=== PATIENT | male | born 1970 | race Caucasian/White ===

== ENCOUNTER 2016-11-03 18:20 | Emergency (ER) | payer BC ==
--- NOTE | 2016-11-03 18:27 | US ---
EXAMINATION TYPE: US VENOUS DOPPLER DUPLEX LE RT DATE OF EXAM: 11/03/2016 6:03 PM COMPARISON: NONE CLINICAL HISTORY: R22.41 Localized swelling/mass/lump R lower limb, patient had cast on right ankle f or 1 month, swelling began after removal of cast SIDE PERFORMED: Right VESSELS IMAGED: External Iliac Vein (EIV) Common Femoral Vein Deep Femoral Vein Greater Saphenous Vein * Femoral Vein Popliteal Vein Small Saphenous Vein * Proximal Calf Veins (* superficial vessels) IMPRESSION: ABNORMAL STUDY, WITH OCCLUSIVE THROMBUS SEEN WITHIN RIGHT POPITEAL VEIN AND PROXIMAL CALF VEIN, NON C OMPRESSIBLE VEIN WITH INTERNAL ECHOES AND NO FLOW DETECTED.
[2016-11-03 18:51] VITALS: RESP 16
[2016-11-03] MEDS ORDERED: APIXABAN 5 MG TAB PO STA (19:10)
--- NOTE | 2016-11-03 19:14 | ED ---
Extremity Problem HPI - General Chief complaint: Extremity Problem,Nontraumatic Time Seen by Provider: 11/03/16 18:58 Source: patient, RN notes reviewed Mode of arrival: wheelchair Limitations: no limitations - History of Present Illness Initial comments: 45-year-old male presents emergency Department with chief complaint of right leg pain. Patient recently had his cast taken off for right leg fracture and was seen Dr. Olivas. Patient states ever since he's had increased pain, swelling. Patient denies any chest pain or shortness of breath. He has no history DVT. Ultrasound did show DVT. - Related Data Previous Rx's Medication Instructions Recorded Apixaban [Eliquis] 0 mg PO DIRECTED #68 tab 11/03/16 Allergies Allergy/AdvReac Type Severity Reaction Status Date / Time No Known Allergies Allergy Verified 11/03/16 19:02 Review of Systems ROS Statement: Those systems with pertinent positive or pertinent negative responses have been documented in the HPI. ROS Other: All systems not noted in ROS Statement are negative. Past Medical History Past Medical History: Renal Disease Additional Past Medical History / Comment(s): BACK PAIN History of Any Multi-Drug Resistant Organisms: None Reported Past Surgical History: Cholecystectomy, Hernia Repair Additional Past Surgical History / Comment(s): KIDNEY SURGERY, 3 fatty tumors removed Past Psychological History: No Psychological Hx Reported Smoking Status: Current every day smoker Past Alcohol Use History: Rare Past Drug Use History: None Reported General Exam Limitations: no limitations General appearance: alert, in no apparent distress Head exam: Present: atraumatic, normocephalic, normal inspection Respiratory exam: Present: normal lung sounds bilaterally. Absent: respiratory distress, wheezes, rales, rhonchi, stridor Cardiovascular Exam: Present: regular rate, normal rhythm, normal heart sounds. Absent: systolic murmur, diastolic murmur, rubs, gallop, clicks Extremities exam: Present: other (Right leg lower aspect there is mild Tenderness pedal pulses equal bilaterally 2+, mild swelling minimal erythema) Neurological exam: Present: alert, oriented X3, CN II-XII intact Course Vital Signs 11/03/16 18:44 Temperature 97.2 F L Pulse Rate 69 Respiratory 16 Rate Blood Pressure 156/96 O2 Sat by Pulse 98 Oximetry Medical Decision Making - Medical Decision Making 45-year-old male presents emergency department for right leg DVT. Patient has had a And Has Been Immobilized for One Month. Patient Was Started on L [facility] and Follow-Up with Primary Care Physician for Continuation Medication and Recheck. Return Parameters Were Discussed. Disposition Clinical Impression: Right leg DVT Disposition: HOME SELF-CARE Condition: Stable Instructions: Deep Venous Thrombosis (ED) Additional Instructions: Please return to the Emergency Department if symptoms worsen or any other concerns. Prescriptions: Apixaban [Eliquis] 0 mg PO DIRECTED #68 tab Time of Disposition: 19:14
[2016-11-03 19:34] VITALS: BP 144/94; PULSE 80; TEMP 97.5
== END 2016-11-03 19:34 | disposition home or self-care (01) ==
LOC: EC 18:20
DX: I82.431 Acute embolism and thrombosis of right popliteal vein (principal); I82.4Y1 Acute embolism and thrombosis of unspecified deep veins of right proximal lower extremity; Z87.81 Personal history of (healed) traumatic fracture
CPT/HCPCS: 99283

== ENCOUNTER 2016-11-22 14:01 | Emergency (ER) | payer BC ==
[2016-11-22 16:07] LABS: Basophils % (A) 1 %; CH 30.7; CHCM 33.6; Eosinophils # (A) 0.3 k/uL (0-0.7); Eosinophils % (A) 4 %; HCT 50.2 % (39.0-53.0); HDW 2.69; HGB 16.3 gm/dL (13.0-17.5); Luc # (Auto) 0.07; Luc % (Auto) 1; Lymphocytes # (A) 2.4 k/uL (1.0-4.8); Lymphocytes % (A) 35 %; MCH 29.9 pg (25.0-35.0); MCHC 32.5 g/dL (31.0-37.0); MCV 92.1 fL (80.0-100.0); Mean Platelet Volume 7.2; Monocytes # (A) 0.4 k/uL (0-1.0); Monocytes % (A) 5 %; Neutrophils # (A) 3.8 k/uL (1.3-7.7); Neutrophils % (A) 54 %; RBC 5.46 m/uL (4.30-5.90); RDW 14.1 % (11.5-15.5); WBC (Perox) 6.87
[2016-11-22 16:17] LABS: ALT 45 U/L (21-72); AST 32 U/L (17-59); Alkaline Phosphatase 71 U/L (38-126); Anion Gap 9 mmol/L; Blood Urea Nitrogen 13 mg/dL (9-20); Calcium 9.3 mg/dL (8.4-10.2); Carbon Dioxide 28 mmol/L (22-30); Chloride 106 mmol/L (98-107); Glucose 94 mg/dL (74-99); Magnesium 2.1 mg/dL (1.6-2.3); Non-African American GFR(MDRD) >60 (>60 ml/min/1.73 sqM); Potassium 3.8 mmol/L (3.5-5.1); Sodium 143 mmol/L (137-145); Total Bilirubin 0.5 mg/dL (0.2-1.3); Total Protein 6.8 g/dL (6.3-8.2)
[2016-11-22 16:19] LABS: INR 1.1 (<1.1); Prothrombin Time 10.9 sec (9.0-12.0)
[2016-11-22 16:54] VITALS: BP 134/86; PULSE 60; RESP 16; TEMP 97.8
--- NOTE | 2016-11-22 17:00 | ED ---
General Adult HPI - General Chief complaint: Weakness Stated complaint: General Weakness/ History of Blood clots Time Seen by Provider: 11/22/16 14:15 Source: patient, RN notes reviewed Mode of arrival: wheelchair Limitations: no limitations - History of Present Illness Initial comments: This is a 45-year-old male presents to the emergency complaining of fatigue. Patient states his been ongoing for a couple of weeks. Patient states she's not weak any localized area he just feels tired all the time. Patient denies any fever chills or cough. Patient denies any chest pain palpitations difficulty breathing or shortness of breath. Patient denies any abdominal pain patient denies nausea vomiting or diarrhea. Patient denies headache patient denies any numbness or focal weakness. Patient denies any lightheadedness dizziness or near syncopal episode. Patient denies any recent injury or trauma. Patient states he does work a lot and has continued to work even though he was recently diagnosed with DVTs on eliquis for that. Patient wondered if Alquist could make him feel fatigued. Patient denies any other symptoms except for this fatigue. - Related Data Home Medications Medication Instructions Recorded Confirmed Apixaban [Eliquis] 5 mg PO BID 11/22/16 11/22/16 Benzonatate [Tessalon Perles] 100 mg PO TID PRN 11/22/16 11/22/16 Cephalexin [Keflex] 500 mg PO TID 11/22/16 11/22/16 Allergies Allergy/AdvReac Type Severity Reaction Status Date / Time No Known Allergies Allergy Verified 11/22/16 15:01 Review of Systems ROS Statement: Those systems with pertinent positive or pertinent negative responses have been documented in the HPI. ROS Other: All systems not noted in ROS Statement are negative. Past Medical History Past Medical History: Renal Disease Additional Past Medical History / Comment(s): BACK PAIN History of Any Multi-Drug Resistant Organisms: None Reported Past Surgical History: Cholecystectomy, Hernia Repair Additional Past Surgical History / Comment(s): KIDNEY SURGERY, 3 fatty tumors removed Past Psychological History: No Psychological Hx Reported Smoking Status: Current every day smoker Past Alcohol Use History: Rare Past Drug Use History: None Reported General Exam - General Exam Comments Initial Comments: GENERAL: Patient is well-developed and well-nourished. Patient is nontoxic and well- hydrated and is in no acute distress. ENT: Neck is soft and supple. No significant lymphadenopathy is noted. Oropharynx is clear. Moist mucous membranes. Neck has full range of motion without eliciting any pain. EYES: The sclera were anicteric and conjunctiva were pink and moist. Extraocular movements were intact and pupils were equal round and reactive to light. Eyelids were unremarkable. PULMONARY: Unlabored respirations. Good breath sounds bilaterally. No audible rales rhonchi or wheezing was noted. CARDIOVASCULAR: There is a regular rate and rhythm without any murmurs gallops or rubs. ABDOMEN: Soft and nontender with normal bowel sounds. No palpable organomegaly was noted. There is no palpable pulsatile mass. SKIN: Skin is clear with no lesions or rashes and otherwise unremarkable. NEUROLOGIC: Patient is alert and oriented x3. Cranial nerves II through XII are grossly intact. Motor and sensory are also intact. Normal speech, volume and content. Symmetrical smile. MUSCULOSKELETAL: Normal extremities with adequate strength and full range of motion. No lower extremity swelling or edema. No calf tenderness. LYMPHATICS: No significant lymphadenopathy is noted PSYCHIATRIC: Normal psychiatric evaluation. Normal interpersonal interactions appears functionally intact in deals appropriately with others. No signs of depression. No signs of anxiety. Limitations: no limitations Course Vital Signs 11/22/16 11/22/16 14:09 16:53 Temperature 98.0 F 97.8 F Pulse Rate 96 60 Respiratory 17 16 Rate Blood Pressure 157/91 134/86 O2 Sat by Pulse 95 96 Oximetry Medical Decision Making - Medical Decision Making EKG shows a normal sinus rhythm at 80 bpm IN interval 164 QRS is 90 QT interval 364 QTC is 440. Patient's EKG shows no ST segment elevation or depression. - Lab Data Result diagrams: 11/22/16 15:45 11/22/16 15:45 Lab Results 11/22/16 11/22/16 11/22/16 Range/Units 15:45 15:45 15:45 WBC 7.0 (3.8-10.6) k/uL RBC 5.46 (4.30-5.90) m/uL Hgb 16.3 (13.0-17.5) gm/dL Hct 50.2 (39.0-53.0) % MCV 92.1 (80.0-100.0) fL MCH 29.9 (25.0-35.0) pg MCHC 32.5 (31.0-37.0) g/dL RDW 14.1 (11.5-15.5) % Plt Count 201 (150-450) k/uL Neutrophils % 54 % Lymphocytes % 35 % Monocytes % 5 % Eosinophils % 4 % Basophils % 1 % Neutrophils # 3.8 (1.3-7.7) k/uL Lymphocytes # 2.4 (1.0-4.8) k/uL Monocytes # 0.4 (0-1.0) k/uL Eosinophils # 0.3 (0-0.7) k/uL Basophils # 0.0 (0-0.2) k/uL PT 10.9 (9.0-12.0) sec INR 1.1 (<1.1) Sodium 143 (137-145) mmol/L Potassium 3.8 (3.5-5.1) mmol/L Chloride 106 (98-107) mmol/L Carbon Dioxide 28 (22-30) mmol/L Anion Gap 9 mmol/L BUN 13 (9-20) mg/dL Creatinine 0.89 (0.66-1.25) mg/dL Est GFR (MDRD) Af Amer >60 (>60 ml/min/1.73 sqM) Est GFR (MDRD) Non-Af >60 (>60 ml/min/1.73 sqM) Glucose 94 (74-99) mg/dL Calcium 9.3 (8.4-10.2) mg/dL Magnesium 2.1 (1.6-2.3) mg/dL Total Bilirubin 0.5 (0.2-1.3) mg/dL AST 32 (17-59) U/L ALT 45 (21-72) U/L Alkaline Phosphatase 71 (38-126) U/L Total Protein 6.8 (6.3-8.2) g/dL Albumin 4.1 (3.5-5.0) g/dL TSH 0.962 (0.465-4.680) mIU/L Free T4 1.03 (0.78-2.19) ng/dL Disposition Clinical Impression: Fatigue Disposition: HOME SELF-CARE Condition: Good Instructions: Fatigue (ED) Referrals: Ck Patel MD [Primary Care Provider] - 1-2 days Time of Disposition: 17:00
== END 2016-11-22 17:15 | disposition home or self-care (01) ==
LOC: EC 14:01
DX: R53.83 Other fatigue (principal); F17.200 Nicotine dependence, unspecified, uncomplicated; Z79.01 Long term (current) use of anticoagulants
CPT/HCPCS: 36415; 80053; 83735; 84439; 84443; 85025; 85610; 93005; 99284

== ENCOUNTER → 2017-02-07 | Outpatient (CLI) | payer BC ==
--- NOTE | 2017-02-07 17:23 | US ---
EXAMINATION TYPE: US venous doppler duplex LE RT DATE OF EXAM: 02/07/2017 2:30 PM COMPARISON: US 2017 CLINICAL HISTORY: I82.409 ACUTE EMBOLISM AND THROMBOSIS OF DEEP VEINS LE. Reevaluate DVT. On Eloquis . SIDE PERFORMED: Right TECHNIQUE: The lower extremity deep venous system is examined utilizing real time linear array sonog shabnam with graded compression, doppler sonography and color-flow sonography. VESSELS IMAGED: External Iliac Vein (EIV) Common Femoral Vein Deep Femoral Vein Greater Saphenous Vein * Femoral Vein Popliteal Vein Small Saphenous Vein * Proximal Calf Veins (* superficial vessels) Right Leg: Positive for DVT. Internal echoes seen mid Popliteal vein and Distal Popliteal Vein. Co mpressions deferred. Left Leg: IMPRESSION: No significant interval change in right lower extremity DVT.
== END | disposition home or self-care (01) ==
LOC: RADUSWWP 13:43
PROVIDERS: ATTEND Family Medicine
DX: I82.431 Acute embolism and thrombosis of right popliteal vein (principal)

== ENCOUNTER 2017-04-11 05:30 | Observation (INO) | payer BC ==
[2017-04-11] MEDS ORDERED: NITROGLYCERIN OINT 1 INCH/GM PACKET TOPICAL STA (05:40)
[2017-04-11] MEDS ORDERED: ASPIRIN 81 MG CHEW PO STA (05:40)
--- NOTE | 2017-04-11 05:43 | ED ---
General Adult HPI - General Chief complaint: Chest Pain Stated complaint: Chest Pain Time Seen by Provider: 04/11/17 05:35 Source: patient, RN notes reviewed Mode of arrival: ambulatory Limitations: no limitations - History of Present Illness Initial comments: Patient is a pleasant 46-year-old male presenting to the emergency department complaining of chest discomfort. Onset of symptoms was yesterday at work. Patient has been under some increased stress recently. Symptoms have been waxing and waning. Discomfort is currently mild rated a 2 or so out of 10. Discomfort feels like an ache. Patient at one time did feel somewhat short of breath. No nausea or diaphoresis. Patient did have similar symptoms approximately 10 years ago diagnosed with anxiety. - Related Data Home Medications Medication Instructions Recorded Confirmed Apixaban [Eliquis] 5 mg PO BID 11/22/16 04/11/17 Allergies Allergy/AdvReac Type Severity Reaction Status Date / Time No Known Allergies Allergy Verified 04/11/17 05:38 Review of Systems ROS Statement: Those systems with pertinent positive or pertinent negative responses have been documented in the HPI. ROS Other: All systems not noted in ROS Statement are negative. Constitutional: Denies: fever Eyes: Denies: eye pain ENT: Denies: ear pain Respiratory: Denies: cough Cardiovascular: Reports: chest pain Endocrine: Denies: fatigue Gastrointestinal: Denies: abdominal pain Genitourinary: Denies: dysuria Musculoskeletal: Denies: back pain Skin: Denies: rash Neurological: Denies: weakness Past Medical History Past Medical History: Renal Disease Additional Past Medical History / Comment(s): BACK PAIN. DVT History of Any Multi-Drug Resistant Organisms: None Reported Past Surgical History: Cholecystectomy, Hernia Repair Additional Past Surgical History / Comment(s): KIDNEY SURGERY, 3 fatty tumors removed Past Psychological History: No Psychological Hx Reported Smoking Status: Current every day smoker Past Alcohol Use History: Rare Past Drug Use History: None Reported General Exam Limitations: no limitations General appearance: alert, in no apparent distress Head exam: Present: atraumatic Eye exam: Present: normal appearance, PERRL ENT exam: Present: normal oropharynx Neck exam: Present: normal inspection Respiratory exam: Present: normal lung sounds bilaterally. Absent: chest wall tenderness Cardiovascular Exam: Present: regular rate, normal rhythm Expanded Peripheral pulses: 2+: Radial (R), Radial (L), Posterior Tibialis (R), Posterior Tibialis (L) GI/Abdominal exam: Present: soft. Absent: tenderness Extremities exam: Present: normal inspection. Absent: pedal edema, calf tenderness Neurological exam: Present: alert Psychiatric exam: Present: normal affect, normal mood Skin exam: Present: normal color Course Vital Signs 04/11/17 04/11/17 04/11/17 05:30 05:47 06:20 Temperature 97.4 F L Pulse Rate 73 77 68 Respiratory 18 17 18 Rate Blood Pressure 163/96 163/96 129/88 O2 Sat by Pulse 97 96 96 Oximetry EKG Findings - EKG Comments: EKG Findings:: Normal sinus rhythm 69. Normal intervals. Left axis. Incomplete right bundle-branch block. No acute ST change. Medical Decision Making - Medical Decision Making Patient reexamined and resting comfortably in bed. Patient still with only mild discomfort. Patient updated on results and plan. Case discussed with practitioner Indira, who will admit for Dr. Reza, covering for Dr. mejia, who admits for Dr. Patel. - Lab Data Result diagrams: 04/11/17 05:45 04/11/17 05:45 Lab Results 04/11/17 04/11/17 04/11/17 Range/Units 05:45 05:45 05:45 WBC 7.3 (3.8-10.6) k/uL RBC 5.24 (4.30-5.90) m/uL Hgb 16.6 (13.0-17.5) gm/dL Hct 49.6 (39.0-53.0) % MCV 94.7 (80.0-100.0) fL MCH 31.7 (25.0-35.0) pg MCHC 33.5 (31.0-37.0) g/dL RDW 13.8 (11.5-15.5) % Plt Count 203 (150-450) k/uL Neutrophils % 58 % Lymphocytes % 31 % Monocytes % 5 % Eosinophils % 4 % Basophils % 1 % Neutrophils # 4.2 (1.3-7.7) k/uL Lymphocytes # 2.3 (1.0-4.8) k/uL Monocytes # 0.4 (0-1.0) k/uL Eosinophils # 0.3 (0-0.7) k/uL Basophils # 0.0 (0-0.2) k/uL PT (9.0-12.0) sec INR (<1.1) APTT (22.0-30.0) sec D-Dimer (<0.60) mg/L FEU Sodium 142 (137-145) mmol/L Potassium 4.0 (3.5-5.1) mmol/L Chloride 108 H (98-107) mmol/L Carbon Dioxide 24 (22-30) mmol/L Anion Gap 10 mmol/L BUN 21 H (9-20) mg/dL Creatinine 0.90 (0.66-1.25) mg/dL Est GFR (MDRD) Af Amer >60 (>60 ml/min/1.73 sqM) Est GFR (MDRD) Non-Af >60 (>60 ml/min/1.73 sqM) Glucose 98 (74-99) mg/dL Calcium 9.4 (8.4-10.2) mg/dL Magnesium 2.1 (1.6-2.3) mg/dL Total Bilirubin 0.5 (0.2-1.3) mg/dL AST 27 (17-59) U/L ALT 38 (21-72) U/L Alkaline Phosphatase 82 (38-126) U/L Total Creatine Kinase 105 (55-170) U/L CK-MB (CK-2) 1.1 (0.0-2.4) ng/mL CK-MB (CK-2) Rel Index 1.0 Troponin I <0.012 (0.000-0.034) ng/mL Total Protein 7.0 (6.3-8.2) g/dL Albumin 4.5 (3.5-5.0) g/dL 04/11/17 Range/Units 05:45 WBC (3.8-10.6) k/uL RBC (4.30-5.90) m/uL Hgb (13.0-17.5) gm/dL Hct (39.0-53.0) % MCV (80.0-100.0) fL MCH (25.0-35.0) pg MCHC (31.0-37.0) g/dL RDW (11.5-15.5) % Plt Count (150-450) k/uL Neutrophils % % Lymphocytes % % Monocytes % % Eosinophils % % Basophils % % Neutrophils # (1.3-7.7) k/uL Lymphocytes # (1.0-4.8) k/uL Monocytes # (0-1.0) k/uL Eosinophils # (0-0.7) k/uL Basophils # (0-0.2) k/uL PT 10.5 (9.0-12.0) sec INR 1.0 (<1.1) APTT 27.5 (22.0-30.0) sec D-Dimer 0.28 (<0.60) mg/L FEU Sodium (137-145) mmol/L Potassium (3.5-5.1) mmol/L Chloride (98-107) mmol/L Carbon Dioxide (22-30) mmol/L Anion Gap mmol/L BUN (9-20) mg/dL Creatinine (0.66-1.25) mg/dL Est GFR (MDRD) Af Amer (>60 ml/min/1.73 sqM) Est GFR (MDRD) Non-Af (>60 ml/min/1.73 sqM) Glucose (74-99) mg/dL Calcium (8.4-10.2) mg/dL Magnesium (1.6-2.3) mg/dL Total Bilirubin (0.2-1.3) mg/dL AST (17-59) U/L ALT (21-72) U/L Alkaline Phosphatase (38-126) U/L Total Creatine Kinase (55-170) U/L CK-MB (CK-2) (0.0-2.4) ng/mL CK-MB (CK-2) Rel Index Troponin I (0.000-0.034) ng/mL Total Protein (6.3-8.2) g/dL Albumin (3.5-5.0) g/dL - Radiology Data Interpreted by me: Chest x-ray shows no acute process. Disposition Clinical Impression: Unstable angina pectoris Disposition: ADMITTED IP TO THIS [facility] Referrals: Ck Patel MD [Primary Care Provider] - 1-2 days Decision Time: 06:38
[2017-04-11 05:54] LABS: Basophils % (A) 1 %; CH 31.6; CHCM 33.5; Eosinophils # (A) 0.3 k/uL (0-0.7); Eosinophils % (A) 4 %; HCT 49.6 % (39.0-53.0); HDW 2.59; HGB 16.6 gm/dL (13.0-17.5); Luc % (Auto) 1; Lymphocytes # (A) 2.3 k/uL (1.0-4.8); Lymphocytes % (A) 31 %; MCH 31.7 pg (25.0-35.0); MCHC 33.5 g/dL (31.0-37.0); MCV 94.7 fL (80.0-100.0); Mean Platelet Volume 6.7; Monocytes # (A) 0.4 k/uL (0-1.0); Monocytes % (A) 5 %; Neutrophils # (A) 4.2 k/uL (1.3-7.7); Neutrophils % (A) 58 %; RBC 5.24 m/uL (4.30-5.90); RDW 13.8 % (11.5-15.5); WBC 7.3 k/uL (3.8-10.6); WBC (Perox) 6.67
[2017-04-11 06:06] LABS: ALT 38 U/L (21-72); AST 27 U/L (17-59); Alkaline Phosphatase 82 U/L (38-126); Anion Gap 10 mmol/L; Blood Urea Nitrogen 21 mg/dL (9-20); Calcium 9.4 mg/dL (8.4-10.2); Carbon Dioxide 24 mmol/L (22-30); Chloride 108 mmol/L (98-107); Glucose 98 mg/dL (74-99); Magnesium 2.1 mg/dL (1.6-2.3); Non-African American GFR(MDRD) >60 (>60 ml/min/1.73 sqM); Sodium 142 mmol/L (137-145); Total Bilirubin 0.5 mg/dL (0.2-1.3)
[2017-04-11 06:10] LABS: Partial Thromboplastin Time 27.5 sec (22.0-30.0); Prothrombin Time 10.5 sec (9.0-12.0)
[2017-04-11 06:22] LABS: Creatine Kinase 105 U/L (55-170)
[2017-04-11 06:34] LABS: Creatine Kinase MB 1.1 ng/mL (0.0-2.4); Troponin I <0.012 ng/mL (0.000-0.034)
[2017-04-11] MEDS ORDERED: HEPARIN SODIUM,PORCINE 5,000 UNIT/ML 1 ML VIAL IV ONE (06:38)
[2017-04-11] MEDS ORDERED: HEPARIN SODIUM,PORCINE 5,000 UNIT/ML 1 ML VIAL IV PRN (06:38)
[2017-04-11] MEDS ORDERED: NITROGLYCERIN SL TABS 0.4 MG TAB SUBLINGUAL PRN (06:38)
[2017-04-11] MEDS ORDERED: HEPARIN SODIUM,PORCINE/D5W PMX 25,000 UNIT in DEXTROSE/WATER 1 500ML.BAG IV SCH (06:45)
--- NOTE | 2017-04-11 07:01 | XR ---
EXAM: XR Chest, 2 Views CLINICAL HISTORY: Reason: Chest Pain TECHNIQUE: Frontal and lateral views of the chest. COMPARISON: Chest x-ray 10 26,016. FINDINGS: Lungs: Left basilar airspace disease. Low lung volumes. Pleural space: Unremarkable. No pneumothorax. Heart: Unremarkable. No cardiomegaly. Mediastinum: Unremarkable. Bones/joints: Unremarkable. IMPRESSION: 1. Left basilar airspace disease. 2. Low lung volumes.
--- NOTE | 2017-04-11 10:05 | P.CRDCN ---
History of Present Illness Consult date: 04/11/17 Requesting physician: Lola Reza Consult reason: chest pain Chief complaint: Chest pain History of present illness: This is a 46-year-old gentleman with no prior documented history of hypertension, no diabetes, no hyperlipidemia, no family history of premature coronary artery disease, he does smoke one pack of cigarettes per day and occasionally drinks alcohol. He also has a history of a DVT which was diagnosed in October of this year at which time he was started on Eliquis. Patient had a repeat venous duplex study performed in January which showed no change in the right popliteal DVT. Patient presents to the hospital on this occasion with symptoms of chest discomfort. He states he was at work yesterday when he noticed what he described as an ache in his chest, he states that the symptoms would last a number of seconds and then dissipate. He would get mildly short of breath with this, he denies any nausea or diaphoresis. Patient states that since the initial episode while he was at work he had 3 episodes during the day, multiple episodes through the night, and again at 5 AM similar symptoms. For this reason he came to the emergency room for further evaluation. Patient states he had symptoms somewhat similar to this approximately 10 years ago and was told to have anxiety. He has never had a cardiac workup in the form of stress test in the past. At the time of my examination this morning, he is currently chest pain-free, he states he has not had any pain since the Nitropaste was applied. Blood pressure on arrival 163/90 , heart rate in the 70s, 97% on room air. Blood pressure this morning 154/80 with heart rate in the 70s, 95% on room air. CBC normal. D-dimer negative. Potassium 4.0, BUN 21, creatinine 0.9. Magnesium 2.1, initial troponin 0.012. EKG shows a normal sinus rhythm with no acute changes. Chest x-ray reveals left basilar airspace disease. Past Medical History Past Medical History: Deep Vein Thrombosis (DVT), Pneumonia, Renal Disease Additional Past Medical History / Comment(s): DVT R leg, congenital kidney defect with surgeries History of Any Multi-Drug Resistant Organisms: None Reported Past Surgical History: Cholecystectomy, Hernia Repair Additional Past Surgical History / Comment(s): KIDNEY SURGERY twice for congenital defect, 3 fatty tumors removed from trunk, bilateral inguinal hernia repairs Past Anesthesia/Blood Transfusion Reactions: Motion Sickness Smoking Status: Current every day smoker - Past Family History Father Family Medical History: Congestive Heart Failure (CHF) Additional Family Medical History / Comment(s): Father of CHF at the age of 77yrs. Mother Family Medical History: No Reported History Additional Family Medical History / Comment(s): Pt states mother is healthy. Medications and Allergies Home Medications Medication Instructions Recorded Confirmed Type Apixaban [Eliquis] 5 mg PO BID 11/22/16 04/11/17 History Allergies Allergy/AdvReac Type Severity Reaction Status Date / Time No Known Allergies Allergy Verified 04/11/17 05:38 Physical Exam Vitals: Vital Signs Temp Pulse Pulse Resp BP BP Pulse Ox 04/11/17 07:44 97.6 F 63 16 154/88 95 04/11/17 06:38 98.0 F 70 16 129/88 97 04/11/17 06:20 68 18 129/88 96 04/11/17 05:47 77 17 163/96 96 04/11/17 05:30 97.4 F L 73 18 163/96 97 Intake and Output 04/10/17 04/11/17 04/11/17 22:59 06:59 14:59 Other: Weight 99.79 kg 104.5 kg Patient Weight 04/12/17 06:59 Weight 104.5 kg PHYSICAL EXAMINATION: HEENT: Head is atraumatic, normocephalic. Pupils equal, round. Neck is supple. There is no elevated jugular venous pressure. HEART EXAMINATION: Heart S1, S2 normal. No murmur or gallop heard. CHEST EXAMINATION: Lungs are clear to auscultation and precussion. No chest wall tenderness is noted on palpation or with deep breathing. ABDOMEN: Soft, nontender. Bowel sounds are heard. No organomegaly noted. EXTREMITIES: 2+ peripheral pulses with no evidence of peripheral edema and no calf tenderness noted. NEUROLOGIC patient is awake, alert and oriented -3. . Results 04/11/17 05:45 04/11/17 05:45 Cardiac Enzymes 04/11/17 04/11/17 Range/Units 05:45 05:45 AST 27 (17-59) U/L CK-MB (CK-2) 1.1 (0.0-2.4) ng/mL Troponin I <0.012 (0.000-0.034) ng/mL Coagulation 04/11/17 Range/Units 05:45 PT 10.5 (9.0-12.0) sec APTT 27.5 (22.0-30.0) sec CBC 04/11/17 Range/Units 05:45 WBC 7.3 (3.8-10.6) k/uL RBC 5.24 (4.30-5.90) m/uL Hgb 16.6 (13.0-17.5) gm/dL Hct 49.6 (39.0-53.0) % Plt Count 203 (150-450) k/uL Comprehensive Metabolic Panel 04/11/17 Range/Units 05:45 Sodium 142 (137-145) mmol/L Potassium 4.0 (3.5-5.1) mmol/L Chloride 108 H (98-107) mmol/L Carbon Dioxide 24 (22-30) mmol/L BUN 21 H (9-20) mg/dL Creatinine 0.90 (0.66-1.25) mg/dL Glucose 98 (74-99) mg/dL Calcium 9.4 (8.4-10.2) mg/dL AST 27 (17-59) U/L ALT 38 (21-72) U/L Alkaline Phosphatase 82 (38-126) U/L Total Protein 7.0 (6.3-8.2) g/dL Albumin 4.5 (3.5-5.0) g/dL Current Medications Generic Name Dose Route Start Last Admin Trade Name Freq PRN Reason Stop Dose Admin Aspirin 325 mg 04/12/17 09:00 Aspirin PO DAILY [facility] Heparin Sodium (Porcine) 0 unit 04/11/17 06:38 Heparin IV Q6HR PRN Low PTT Protocol Heparin Sodium/Dextrose 25,000 500 mls @ 20.15 mls/hr 04/11/17 06:45 06:47 unit/ IV Solution IV 10.1 units/kg/hr .Q24H LIZ 20.15 mls/hr Protocol Administration 10.1 UNITS/KG/HR Nitroglycerin 1 inch 04/11/17 12:00 Nitro-Bid Oint TOPICAL Q6HR [facility] Nitroglycerin 0.4 mg 04/11/17 06:38 Nitrostat SUBLINGUAL Q5M PRN Chest Pain Sodium Chloride 10 ml 04/11/17 09:00 Saline Flush IV BID LIZ Intake and Output 04/10/17 04/11/17 04/11/17 22:59 06:59 14:59 Other: Weight 99.79 kg 104.5 kg Patient Weight 04/12/17 06:59 Weight 104.5 kg 04/11/17 05:45 04/11/17 05:45 EKG Interpretations (text) EKG shows normal sinus rhythm with no acute changes. Assessment and Plan Plan: Assessment and plan #1 chest pain, with some atypical features for acute coronary syndrome, although patient had several episodes. Initial troponin negative. EKG shows normal sinus rhythm with no acute changes. #2 right popliteal DVT, diagnosed in October of this year, on Eliquis 5 mg one tablet by mouth twice a day. D-dimer negative this admission. #3 nicotine dependence #4 anxiety Plan We will order an echocardiogram with Doppler study to be performed. Obtained to further troponin values. If the second troponin is negative recommend the patient undergo stress testing to rule out underlying coronary artery disease. Further recommendations to follow. DNP note has been reviewed, I agree with a documented findings and plan of care. Patient was seen and examined.
[2017-04-11 11:12] LABS: Creatine Kinase 92 U/L (55-170)
[2017-04-11 11:24] LABS: Creatine Kinase MB 1.1 ng/mL (0.0-2.4); Troponin I <0.012 ng/mL (0.000-0.034)
[2017-04-11] MEDS ORDERED: RX INFO: IV CONTRAST WAS GIVEN 1 EACH MISC MISCELLANE PRN (12:31)
--- NOTE | 2017-04-11 12:42 | ECHOF ---
Referral Reason:chest pain MEASUREMENTS -------- HEIGHT: 180.3 cm WEIGHT: 104.3 kg BP: IVSd: 1.2 cm (0.6 - 1.1) LVIDd: 4.2 cm (3.9 - 5.3) LVPWd: 1.2 cm (0.6 - 1.1) IVSs: 1.8 cm LVIDs: 2.1 cm LVPWs: 2.0 cm Ao Diam: 4.8 cm (2.0 - 3.7) AV Cusp: 2.9 cm (1.5 - 2.6) LA Diam: 2.9 cm (2.7 - 3.8) MV EXCURSION: 10.412 mm (> 18.000) MV EF SLOPE: 78 mm/s (70 - 150) EPSS: 0.5 cm MV E Newton: 0.83 m/s MV DecT: 253 ms MV A Newton: 0.64 m/s MV E/A Ratio: 1.30 RAP: 5.00 mmHg RVSP: 9.56 mmHg FINDINGS -------- Sinus rhythm. This was a technically good study. There is mild concentric left ventricular hypertrophy. Overall left ventricular systolic function is normal with, an EF between 55 - 60 %. The right ventricle is normal in size and function. The left atrium is normal in size. The right atrium is normal in size. Can't exclude possible Bicuspid Aov. The mitral valve leaflets are mildly thickened. Mild mitral regurgitation is present. Mild tricuspid regurgitation present. The right ventricular systolic pressure, as measured by Doppler, is 9.56mmHg. Pulmonic valve appears structurally normal. The aortic root is moderately dilated. Ascending Aortic Aneurysm measuring 4.8 cm The pericardium is normal. CONCLUSIONS -------- 1. Sinus rhythm. 2. Mild mitral regurgitation is present. 3. Mild tricuspid regurgitation present. 4. The right ventricular systolic pressure, as measured by Doppler, is 9.56mmHg. 5. Pulmonic valve appears structurally normal. 6. The aortic root is moderately dilated. 7. Ascending Aortic Aneurysm measuring 4.8 cm 8. The pericardium is normal. 9. This was a technically good study. 10. There is mild concentric left ventricular hypertrophy. 11. Overall left ventricular systolic function is normal with, an EF between 55 - 60 %. 12. The right ventricle is normal in size and function. 13. The left atrium is normal in size. 14. The right atrium is normal in size. 15. Can't exclude possible Bicuspid Aov. 16. The mitral valve leaflets are mildly thickened. APPLIANCE TECHNICIAN: Carissa Squires RDCS
--- NOTE | 2017-04-11 13:27 | CT ---
EXAMINATION TYPE: CT chest w con DATE OF EXAM: 04/11/2017 COMPARISON: NONE HISTORY: [place], ASSESS DILATED AORTA CT DLP: 479.50 mGycm Automated exposure control for dose reduction was used. CONTRAST: CT scan of the chest is performed with IV Contrast, patient injected with 100 ML mL of Omnipaque 300. FINDINGS: There is some scarring or atelectasis in the right middle lobe. There is also some scarring or atelectasis in the left lower lobe. No parenchymal nodule is seen. There is no significant axillary or hilar adenopathy. There is some shotty adenopathy in the mediasti num. The aortic root is dilated measuring 4.8 cm. Just above the root of the aorta measures 3.4 cm. At the level of the proximal arch, the aorta measures 3 cm. At the level of the proximal descending thoraci c aorta the aorta measures 2.6 cm. The remainder the aorta is normal in caliber. There is no pleural or pericardial fluid. The heart is normal in size. The gallbladder has been removed. Visualized abdominal viscera are unremarkable. No osseous lesion is seen. IMPRESSION: 1. ASCENDING THORACIC AORTIC ANEURYSM. 2. STATUS POST CHOLECYSTECTOMY.
[2017-04-11] MEDS: NITROGLYCERIN OINT 1 INCH/GM PACKET TOPICAL SCH ×2 (13:54→20:01)
[2017-04-11] MEDS ORDERED: ALPRAZolam 0.5 MG TAB PO PRN (16:04)
[2017-04-11] MEDS: NICOTINE 14MG/24HR PATCH TRANSDERM SCH (17:05)
--- NOTE | 2017-04-11 18:08 | P.HPIM ---
History of Present Illness H&P Date: 04/11/17 Chief Complaint: Chest pain 6-year-old gentleman with ongoing tobacco use comes in the hospital with complaints of chest pain midsternal in location that started 24 hours prior to admission. Patient states that his pain is deep stabbing nonradiating no alleviating or exacerbating factors are noted. Patient states that he felt uneasy overnight hence came to the hospital around 5 AM EKG did not reveal ST-T wave changes Patient does not complain of any symptoms at the time of my evaluation Patient underwent echocardiogram which revealed a 4.8 cm aortic aneurysm A CT angiogram also revealed a similar size aortic aneurysm Denies having any previous cardiac history No headaches blurry vision nausea vomiting chest pain diarrhea or abdominal pain urinary urgency or frequency is reported during my evaluation Review of Systems All systems: negative (Noted in HPI) Past Medical History Past Medical History: Deep Vein Thrombosis (DVT), Pneumonia, Renal Disease Additional Past Medical History / Comment(s): DVT R leg, congenital kidney defect with surgeries History of Any Multi-Drug Resistant Organisms: None Reported Past Surgical History: Cholecystectomy, Hernia Repair Additional Past Surgical History / Comment(s): KIDNEY SURGERY twice for congenital defect, 3 fatty tumors removed from trunk, bilateral inguinal hernia repairs Past Anesthesia/Blood Transfusion Reactions: Motion Sickness Smoking Status: Current every day smoker - Past Family History Father Family Medical History: Congestive Heart Failure (CHF) Additional Family Medical History / Comment(s): Father of CHF at the age of 77yrs. Mother Family Medical History: No Reported History Additional Family Medical History / Comment(s): Pt states mother is healthy. Medications and Allergies Home Medications Medication Instructions Recorded Confirmed Type Apixaban [Eliquis] 5 mg PO BID 11/22/16 04/11/17 History Allergies Allergy/AdvReac Type Severity Reaction Status Date / Time No Known Allergies Allergy Verified 04/11/17 05:38 Physical Exam Vitals: Vital Signs Temp Pulse Pulse Resp BP BP Pulse Ox 04/11/17 16:00 16 04/11/17 15:28 97.9 F 63 16 134/84 96 04/11/17 12:00 97.8 F 72 16 152/91 97 04/11/17 07:44 97.6 F 63 16 154/88 95 04/11/17 06:38 98.0 F 70 16 129/88 97 04/11/17 06:20 68 18 129/88 96 04/11/17 05:47 77 17 163/96 96 04/11/17 05:30 97.4 F L 73 18 163/96 97 Intake and Output 04/11/17 04/11/17 04/11/17 06:59 14:59 22:59 Intake Total 240 Balance 240 Intake: Oral 240 Other: Weight 99.79 kg 104.5 kg Patient Weight 04/12/17 06:59 Weight 104.5 kg Physical exam Gen. appearance oriented 3 in no distress Neck is supple no JVD Lungs good air entry clear to auscultation no rhonchi or wheezing Heart S1-S2 heard regular rate and rhythm no murmurs appreciated Abdomen is soft nontender no organomegaly bowel sounds are intact Neurologically cranial nerves II-12 grossly intact no focal motor or sensory deficits noted Skin no abnormalities appreciated Results CBC & Chem 7: 04/11/17 05:45 04/11/17 05:45 Labs: Abnormal Lab Results - Last 24 Hours (Table) 04/11/17 04/11/17 Range/Units 05:45 10:25 APTT 49.5 H (22.0-30.0) sec Chloride 108 H (98-107) mmol/L BUN 21 H (9-20) mg/dL Thrombosis Risk Factor Assmnt - Choose All That Apply Any of the Below Risk Factors Present?: Yes Each Factor Represents 1 point: Age 41-60 years, Obesity (BMI >25) Other Risk Factors: Yes Each Risk Factor Represents 3 Points: History of DVT/PE Other congenital or acquired thrombophilia - If yes, enter type in comment: No Thrombosis Risk Factor Assessment Total Risk Factor Score: 5 Thrombosis Risk Factor Assessment Level: High Risk Assessment and Plan Plan: #1 atypical chest pain rule out ACS #2 ascending aortic aneurysm 4.8 cm #3 hypertension New diagnosis Plan Discussed regarding smoking cessation. Regarding the aortic aneurysm A T is plan for tomorrow to look at the aortic valve rule out bicuspid aortic valve Smoking cessation is highly recommended again is symptom-free at this time We'll need coronary workup as well likely a stress test on outpatient basis
[2017-04-11 19:16] LABS: Creatine Kinase 84 U/L (55-170)
[2017-04-11 19:30] LABS: Creatine Kinase MB 0.8 ng/mL (0.0-2.4); Troponin I <0.012 ng/mL (0.000-0.034)
[2017-04-12] MEDS: NITROGLYCERIN OINT 1 INCH/GM PACKET TOPICAL SCH ×3 (03:37→12:14)
[2017-04-12 06:31] LABS: Mean Platelet Volume 7.2
[2017-04-12 06:46] LABS: Cholesterol 195 mg/dL (<200); HDL Cholesterol 36 mg/dL (40-60); Triglycerides 255 mg/dL (<150)
[2017-04-12] MEDS: NICOTINE 14MG/24HR PATCH TRANSDERM SCH (07:53)
[2017-04-12] MEDS ORDERED: ASPIRIN 325 MG TAB PO SCH (09:00)
[2017-04-12] MEDS ORDERED: IV FLUID CONTINUATION 1,000 ML IV ONE (10:15)
[2017-04-12] MEDS ORDERED: SODIUM CHLORIDE 0.9% 500 ML IV ONE (10:15)
[2017-04-12] MEDS ORDERED: fentaNYL (PF) 50 MCG/ML 2 ML AMP ONE (10:17)
[2017-04-12] MEDS ORDERED: MIDAZOLAM 2 MG/2 ML VIAL ONE (10:17)
[2017-04-12] MEDS: BENZOCAINE SPRAY 100 APPLIC/CAN MUCOUS MEM ONE ×2 (10:33→10:55)
[2017-04-12] MEDS: MIDAZOLAM 2 MG/2 ML VIAL IV ONE ×3 (10:45→11:04)
[2017-04-12] MEDS ORDERED: fentaNYL (PF) 50 MCG/ML 2 ML AMP IV ONE (10:55)
[2017-04-12] MEDS ORDERED: MIDAZOLAM 2 MG/2 ML VIAL IV ONE (10:59)
[2017-04-12] MEDS ORDERED: METOPROLOL SUCCINATE (ER) 50 MG TAB.ER.24H PO SCH (11:15)
[2017-04-12 11:45] VITALS: RESP 18; TEMP 97.6
[2017-04-12 12:23] VITALS: PULSE 75
[2017-04-12 12:24] VITALS: BP 132/95
--- NOTE | 2017-04-12 13:24 | P.CON ---
Consult Note - . Consult date: 04/12/17 Assessment/Plan:: Mr. Welch is a 46-year-old man who presented with chest pain. Chest pain is a central deep chest pain which is nonradiating. Patient EKG did not demonstrate any changes and his troponins were negative. He did have an echocardiogram which demonstrated aortic root aneurysm of 4.8 cm. This was confirmed on CT angiogram. Previous medical history is significant for pneumonia renal insufficiency and deep venous thrombosis patient was born with congenital kidney defect and had several surgeries at a very young age. Other surgical history includes cholecystectomy and herniorrhaphy. Echocardiogram and computed tomography scan are reviewed with a 4.8 cm root aortic aneurysm being noted. There is no significant aortic valvular insufficiency and no evidence of bicuspid aortic valve. Recommendation at this time is for medical management with beta blockade. CAIN inhibitor can be added as needed for hypertensive control. A follow-up computed tomography scan will be obtained in 6 months and the patient will follow up with us in the office at that time.
--- NOTE | 2017-04-12 18:35 | P.DS ---
Providers Date of admission: 04/11/17 06:38 Attending physician: Lola Reza Consults: 04/11/17 06:38 Consult Physician Urgent Consulting Provider: Alex Kirkland Consult Reason/Comments: ua Do you want consulting provider notified?: Yes 04/12/17 12:09 Consult Physician Stat Consulting Provider: Jhon Jimenez Consult Reason/Comments: dilated aorta Do you want consulting provider notified?: Already Contacted Primary care physician: Ck [facility] Course: 6-year-old gentleman with ongoing tobacco use comes in the hospital with complaints of chest pain midsternal in location that started 24 hours prior to admission. Patient states that his pain is deep stabbing nonradiating no alleviating or exacerbating factors are noted. Patient states that he felt uneasy overnight hence came to the hospital around 5 AM EKG did not reveal ST-T wave changes Patient does not complain of any symptoms at the time of my evaluation Patient underwent echocardiogram which revealed a 4.8 cm aortic aneurysm A CT angiogram also revealed a similar size aortic aneurysm Denies having any previous cardiac history No headaches blurry vision nausea vomiting chest pain diarrhea or abdominal pain urinary urgency or frequency is reported during my evaluation 04/04/2017 Denies having any new complaints No headaches nausea vomiting chest pain difficulty breathing abdominal pain is reported Physical exam Gen. appearance oriented 3 in no distress Neck is supple no JVD Lungs good air entry clear to auscultation no rhonchi or wheezing Heart S1-S2 heard regular rate and rhythm no murmurs appreciated Abdomen is soft nontender no organomegaly bowel sounds are intact Neurologically cranial nerves II-12 grossly intact no focal motor or sensory deficits noted Skin no abnormalities appreciated Assessment and Plan Plan: #1 atypical chest pain rule out ACS #2 aortic root dilatation 4.8 cm #3 hypertension New diagnosis Underwent a BLAKE does not show bicuspid aortic valve and 4.8 cm Is to follow-up with Dr. Adrian in 6 months Patient was started on metoprolol thereafter losartan been initiated on outpatient basis blood pressure control was discussed with the patient Plan - Discharge Summary New Discharge Prescriptions: New Metoprolol Succinate (ER) [Toprol XL] 50 mg PO DAILY #30 tab Continue Apixaban [Eliquis] 5 mg PO BID Discharge Medication List Apixaban [Eliquis] 5 mg PO BID 11/22/16 [History] Metoprolol Succinate (ER) [Toprol XL] 50 mg PO DAILY #30 tab 04/12/17 [Rx] Follow up Appointment(s)/Referral(s): Ck Patel MD [Primary Care Provider] - 1-2 days Gilbert Pruett MD [STAFF PHYSICIAN] - 1 Week Patient Instructions/Handouts: How to Stop Smoking (DC), How to Stop Smoking ( GEN) Activity/Diet/Wound Care/Special Instructions: CT in 6 months and follow up with Dr. Adrian Discharge Disposition: HOME SELF-CARE
--- NOTE | 2017-04-14 20:21 | ECHOT ---
PREOPERATIVE DIAGNOSIS: Dilated aortic root. This patient came to the hospital with atypical angina. Echocardiogram and CT scan showed evidence of dilated aortic root measuring 4.8 cm. There was no evidence of dissection. This transesophageal echocardiogram was performed to rule out any evidence of bicuspid aortic valve. PROCEDURE: The patient was given intravenous sedation with Versed and Fentanyl and transesophageal echocardiogram was performed without any complications. Left ventriculare chamber is normal in size with normal left ventricular systolic function. Mitral valve morphology is normal. Tricuspid valve morphology is normal. Aortic valve is trileaflet. It is thin. There is no evidence of aortic regurgitation. Minimal mitral regurgitation is noted. Left atrial appendage is clear. Aortic root is dilated at the sinus of Valsalva and measures 4.8 cm. Ascending aorta is 3.4 cm. Descending thoracic aorta was normal. There was no evidence of any dissection. There is no evidence of any PFO by saline contrast study. FINAL IMPRESSION: There is evidence of dilated aortic root at the sinus of Valsalva and measures 4.8 cm. There is no evidence of any dissection. Ascending aorta as well as descending thoracic aorta are normal. Aortic valve morphology is normal. It is tricuspid. Aortic leaflets are thin. There is not evidence of aortic regurgitation. Mitral and tricuspid valve morphology is normal. There is no evidence of any PFO. MTDD
== END 2017-04-12 15:36 | disposition home or self-care (01) ==
LOC: EC 05:30 → 3OBS 06:38
PROVIDERS: ADMIT Hospitalist; ATTEND Hospitalist
DX: I20.9 Angina pectoris, unspecified (principal); I71.2 Thoracic aortic aneurysm, without rupture; I10 Essential (primary) hypertension; Z86.718 Personal history of other venous thrombosis and embolism; F41.9 Anxiety disorder, unspecified; I45.10 Unspecified right bundle-branch block; R06.02 Shortness of breath; Z79.01 Long term (current) use of anticoagulants; F17.200 Nicotine dependence, unspecified, uncomplicated; N28.9 Disorder of kidney and ureter, unspecified; Z90.49 Acquired absence of other specified parts of digestive tract; Z82.49 Family history of ischemic heart disease and other diseases of the circulatory system
CPT/HCPCS: 96376 ×2; 99285 ×2; 96365; 96366; 36415; 94760; 93005; 93312; 93320; 93306; 93325; 85379; 80061; 80053; 82550; 82553; 83735; 84484; 85025; 85049; 85610; 85730; 71020; 71260; G0378 ×2; S4990 ×2; J2250; J1644 ×2; J3010; Q9967

== ENCOUNTER → 2018-06-21 | Outpatient (CLI) | payer OTHER ==
--- NOTE | 2018-06-22 09:01 | CT ---
CT CHEST FOR PULMONARY EMBOLISM. EXAMINATION TYPE: CT angio chest DATE OF EXAM: 06/21/2018 INDICATION: THORACIC AORTIC ANUERYSM CT DLP: 524 mGycm, Automated exposure control for dose reduction was used. CONTRAST: Patient injected with 100 mL of Isovue 370. COMPARISON: 04/11/2017 TECHNIQUE: CT of the chest is performed on a spiral scan at 2 mm thick sections. Study is performed with intravenous contrast timed for evaluation for pulmonary embolism. This will limit additional po rtions of the evaluation. 3-D MIP images reconstructed by the technologist are reviewed on the compu ter in the coronal and sagittal planes. FINDINGS: No persistent filling defects are evident to suggest an acute pulmonary embolism. No mediastinal or hilar adenopathy enlarged by CT criteria is evident. The ascending aorta diameter at the level of the main pulmonary artery is 3.5 cm. The main pulmonary artery diameter at the bifur cation is 3.0 cm. Aortic root at the level of the valve appears to measure 4.9 x 4.3 cm. This appears stable from the c omparison. At the aortic arch level thoracic aorta measures 2.6 cm. The descending thoracic aorta in the midportion is 2.3 cm. Lung windows are clear. Limited CT section through the upper abdomen are unremarkable. IMPRESSIONS: 1. Prominence of the thoracic aortic root measuring 4.9 cm. 2. CTA chest is otherwise unremarkable.
--- NOTE | 2018-06-22 11:25 | ECHOF ---
Referral Reason:I71.9 Aortic aneurysm of unspecified site, without MEASUREMENTS -------- HEIGHT: 179.1 cm WEIGHT: 104.3 kg BP: 117/60 RVIDd: 3.2 cm (< 3.3) IVSd: 1.4 cm (0.6 - 1.1) LVIDd: 4.6 cm (3.9 - 5.3) LVPWd: 1.5 cm (0.6 - 1.1) IVSs: 1.8 cm LVIDs: 3.0 cm LVPWs: 1.6 cm LA Diam: 3.6 cm (2.7 - 3.8) LAESV Index (A-L): 20.72 ml/m Ao Diam: 4.7 cm (2.0 - 3.7) AV Cusp: 3.1 cm (1.5 - 2.6) MV EXCURSION: 15.271 mm (> 18.000) MV EF SLOPE: 36 mm/s (70 - 150) EPSS: 0.9 cm MV E Newton: 0.89 m/s MV DecT: 208 ms MV A Newton: 0.67 m/s MV E/A Ratio: 1.32 FINDINGS -------- Sinus rhythm. This was a technically good study. The left ventricular size is normal. There is moderate concentric left ventricular hypertrophy. O verall left ventricular systolic function is normal with, an EF between 60 - 65 %. The right ventricle is normal in size. Normal LA size by volume 22+/-6 ml/m2. The right atrium is normal in size. The aortic valve is trileaflet and appears structurally normal. The mitral valve is normal. The tricuspid valve appears structurally normal. The pulmonic valve was not well visualized. The aortic root is dilated measuring 4.7cm. Normal inferior vena cava with normal inspiratory collapse consistent with estimated right atrial pre ssure of 5 mmHg. There is no pericardial effusion. CONCLUSIONS -------- 1. Sinus rhythm. 2. This was a technically good study. 3. The left ventricular size is normal. 4. There is moderate concentric left ventricular hypertrophy. 5. Overall left ventricular systolic function is normal with, an EF between 60 - 65 %. 6. The right ventricle is normal in size. 7. Normal LA size by volume 22+/-6 ml/m2. 8. The right atrium is normal in size. 9. The aortic valve is trileaflet and appears structurally normal. 10. The mitral valve is normal. 11. The tricuspid valve appears structurally normal. 12. The pulmonic valve was not well visualized. 13. The aortic root is dilated measuring 4.7cm. 14. Normal inferior vena cava with normal inspiratory collapse consistent with estimated right atrial pressure of 5 mmHg. 15. There is no pericardial effusion. HABITAT BIOLOGIST: Denise Zavaleta RDCS
== END | disposition home or self-care (01) ==
LOC: RADECHMAIN 15:45
PROVIDERS: ATTEND Family Medicine
DX: I51.7 Cardiomegaly (principal); I71.9 Aortic aneurysm of unspecified site, without rupture
CPT/HCPCS: 93306; 71275; Q9967

== ENCOUNTER 2019-09-30 10:26 | Emergency (ER) | payer OTHER ==
[2019-09-30 10:36] VITALS: TEMP 98.1
[2019-09-30] MEDS ORDERED: SODIUM CHLORIDE 0.9% 1,000 ML IV STA (10:48)
[2019-09-30] MEDS ORDERED: ASPIRIN 81 MG PO STA (10:48)
--- NOTE | 2019-09-30 10:52 | ED ---
General Adult HPI - General Chief complaint: Upper Respiratory Infection Stated complaint: congestion Time Seen by Provider: 09/30/19 10:43 Source: patient, RN notes reviewed Mode of arrival: ambulatory Limitations: no limitations - History of Present Illness Initial comments: patient is a pleasant 48-year-old male presenting to the emergency Department with complaints of cough. Onset of symptoms was several days ago. Patient feels like there is congestion in his upper chest however is unable to cough any out. Patient occasionally has minimal chest discomfort only with cough. No chest discomfort at this time. Patient has had one or 2 episodes of minimal abdominal discomfort on the left side, none at this time. No history of heart problems. Patient denies any shortness of breath. Patient questions if he has had some subjective fevers. Patient does admit to having a mild sore throat. - Related Data Home Medications Medication Instructions Recorded Confirmed Metoprolol Succinate (ER) [Toprol 50 mg PO HS 09/30/19 09/30/19 XL] Previous Rx's Medication Instructions Recorded Albuterol Inhaler [Ventolin Hfa 2 puff INHALATION Q4HR PRN #1 09/30/19 Inhaler] inhaler Allergies Allergy/AdvReac Type Severity Reaction Status Date / Time No Known Allergies Allergy Verified 09/30/19 12:33 Review of Systems ROS Statement: Those systems with pertinent positive or pertinent negative responses have been documented in the HPI. ROS Other: All systems not noted in ROS Statement are negative. Constitutional: Reports: as per HPI Eyes: Denies: eye pain ENT: Reports: throat pain. Denies: ear pain Respiratory: Reports: cough. Denies: dyspnea Cardiovascular: Reports: as per HPI Endocrine: Denies: fatigue Gastrointestinal: Reports: as per HPI. Denies: vomiting, diarrhea Genitourinary: Denies: dysuria Musculoskeletal: Denies: back pain Skin: Denies: rash Neurological: Denies: weakness Past Medical History Past Medical History: Deep Vein Thrombosis (DVT), Pneumonia, Renal Disease Additional Past Medical History / Comment(s): DVT R leg, congenital kidney defect with surgeries History of Any Multi-Drug Resistant Organisms: None Reported Past Surgical History: Cholecystectomy, Hernia Repair Additional Past Surgical History / Comment(s): KIDNEY SURGERY twice for congenital defect, 3 fatty tumors removed from trunk, bilateral inguinal hernia repairs Past Anesthesia/Blood Transfusion Reactions: Motion Sickness Past Psychological History: Anxiety, Depression Smoking Status: Current every day smoker Past Alcohol Use History: None Reported Past Drug Use History: None Reported - Past Family History Father Family Medical History: Congestive Heart Failure (CHF) Additional Family Medical History / Comment(s): Father of CHF at the age of 77yrs. Mother Family Medical History: No Reported History Additional Family Medical History / Comment(s): Pt states mother is healthy. General Exam Limitations: no limitations General appearance: alert, in no apparent distress Head exam: Present: normocephalic Eye exam: Present: normal appearance, PERRL ENT exam: Present: other (mild pharyngeal erythema) Neck exam: Present: normal inspection. Absent: meningismus, lymphadenopathy Respiratory exam: Present: normal lung sounds bilaterally. Absent: chest wall tenderness Cardiovascular Exam: Present: regular rate, normal rhythm Expanded Peripheral pulses: 2+: Posterior Tibialis (R), Posterior Tibialis (L), Dorsalis Pedis (R), Dorsalis Pedis (L) GI/Abdominal exam: Present: soft. Absent: distended, tenderness, guarding, rebound, rigid, pulsatile mass Extremities exam: Present: normal inspection. Absent: pedal edema, calf tenderness Back exam: Present: normal inspection Neurological exam: Present: alert Psychiatric exam: Present: normal affect, normal mood Skin exam: Present: normal color Course Vital Signs 09/30/19 09/30/19 09/30/19 10:33 11:00 11:03 Temperature 98.1 F Pulse Rate 99 Respiratory 21 21 16 Rate Blood Pressure 131/88 O2 Sat by Pulse 95 95 93 L Oximetry 09/30/19 11:10 Temperature Pulse Rate 84 Respiratory 18 Rate Blood Pressure 127/82 O2 Sat by Pulse 94 L Oximetry EKG Findings - EKG Comments: EKG Findings:: normal sinus rhythm 94. NH 180. QRS 92. QT 370. QTc 472. Normal axis. Normal QRS. No acute ST change Medical Decision Making - Medical Decision Making patient reevaluated and resting comfortably in bed. Patient updated on results and need for follow-up. Patient is comfortable with discharge home. Patient does request work note for today. - Lab Data Result diagrams: 09/30/19 10:45 09/30/19 10:45 Lab Results 09/30/19 09/30/19 09/30/19 Range/Units 10:45 10:45 10:45 WBC 8.7 (3.8-10.6) k/uL RBC 5.44 (4.30-5.90) m/uL Hgb 17.0 (13.0-17.5) gm/dL Hct 50.6 (39.0-53.0) % MCV 93.1 (80.0-100.0) fL MCH 31.3 (25.0-35.0) pg MCHC 33.7 (31.0-37.0) g/dL RDW 13.0 (11.5-15.5) % Plt Count 229 (150-450) k/uL Neutrophils % 67 % Lymphocytes % 21 % Monocytes % 6 % Eosinophils % 2 % Basophils % 1 % Neutrophils # 5.8 (1.3-7.7) k/uL Lymphocytes # 1.8 (1.0-4.8) k/uL Monocytes # 0.5 (0-1.0) k/uL Eosinophils # 0.2 (0-0.7) k/uL Basophils # 0.1 (0-0.2) k/uL PT 10.1 (9.0-12.0) sec INR 0.9 (<1.2) APTT 26.3 (22.0-30.0) sec D-Dimer 0.81 H (<0.60) mg/L FEU Sodium 140 (137-145) mmol/L Potassium 4.1 (3.5-5.1) mmol/L Chloride 104 (98-107) mmol/L Carbon Dioxide 26 (22-30) mmol/L Anion Gap 10 mmol/L BUN 18 (9-20) mg/dL Creatinine 1.06 (0.66-1.25) mg/dL Est GFR (CKD-EPI)AfAm >90 (>60 ml/min/1.73 sqM) Est GFR (CKD-EPI)NonAf 83 (>60 ml/min/1.73 sqM) Glucose 116 H (74-99) mg/dL Calcium 9.4 (8.4-10.2) mg/dL Magnesium 2.5 H (1.6-2.3) mg/dL Total Bilirubin 1.0 (0.2-1.3) mg/dL AST 41 (17-59) U/L ALT 29 (4-49) U/L Alkaline Phosphatase 93 (38-126) U/L Troponin I (0.000-0.034) ng/mL NT-Pro-B Natriuret Pep pg/mL Total Protein 8.0 (6.3-8.2) g/dL Albumin 4.5 (3.5-5.0) g/dL Influenza Type A RNA (Not Detectd) Influenza Type B (PCR) (Not Detectd) Group A Strep Rapid (Negative) 09/30/19 09/30/19 09/30/19 Range/Units 10:45 10:45 11:05 WBC (3.8-10.6) k/uL RBC (4.30-5.90) m/uL Hgb (13.0-17.5) gm/dL Hct (39.0-53.0) % MCV (80.0-100.0) fL MCH (25.0-35.0) pg MCHC (31.0-37.0) g/dL RDW (11.5-15.5) % Plt Count (150-450) k/uL Neutrophils % % Lymphocytes % % Monocytes % % Eosinophils % % Basophils % % Neutrophils # (1.3-7.7) k/uL Lymphocytes # (1.0-4.8) k/uL Monocytes # (0-1.0) k/uL Eosinophils # (0-0.7) k/uL Basophils # (0-0.2) k/uL PT (9.0-12.0) sec INR (<1.2) APTT (22.0-30.0) sec D-Dimer (<0.60) mg/L FEU Sodium (137-145) mmol/L Potassium (3.5-5.1) mmol/L Chloride (98-107) mmol/L Carbon Dioxide (22-30) mmol/L Anion Gap mmol/L BUN (9-20) mg/dL Creatinine (0.66-1.25) mg/dL Est GFR (CKD-EPI)AfAm (>60 ml/min/1.73 sqM) Est GFR (CKD-EPI)NonAf (>60 ml/min/1.73 sqM) Glucose (74-99) mg/dL Calcium (8.4-10.2) mg/dL Magnesium (1.6-2.3) mg/dL Total Bilirubin (0.2-1.3) mg/dL AST (17-59) U/L ALT (4-49) U/L Alkaline Phosphatase (38-126) U/L Troponin I <0.012 (0.000-0.034) ng/mL NT-Pro-B Natriuret Pep 25 pg/mL Total Protein (6.3-8.2) g/dL Albumin (3.5-5.0) g/dL Influenza Type A RNA Not Detected (Not Detectd) Influenza Type B (PCR) Not Detected (Not Detectd) Group A Strep Rapid (Negative) 09/30/19 Range/Units 11:05 WBC (3.8-10.6) k/uL RBC (4.30-5.90) m/uL Hgb (13.0-17.5) gm/dL Hct (39.0-53.0) % MCV (80.0-100.0) fL MCH (25.0-35.0) pg MCHC (31.0-37.0) g/dL RDW (11.5-15.5) % Plt Count (150-450) k/uL Neutrophils % % Lymphocytes % % Monocytes % % Eosinophils % % Basophils % % Neutrophils # (1.3-7.7) k/uL Lymphocytes # (1.0-4.8) k/uL Monocytes # (0-1.0) k/uL Eosinophils # (0-0.7) k/uL Basophils # (0-0.2) k/uL PT (9.0-12.0) sec INR (<1.2) APTT (22.0-30.0) sec D-Dimer (<0.60) mg/L FEU Sodium (137-145) mmol/L Potassium (3.5-5.1) mmol/L Chloride (98-107) mmol/L Carbon Dioxide (22-30) mmol/L Anion Gap mmol/L BUN (9-20) mg/dL Creatinine (0.66-1.25) mg/dL Est GFR (CKD-EPI)AfAm (>60 ml/min/1.73 sqM) Est GFR (CKD-EPI)NonAf (>60 ml/min/1.73 sqM) Glucose (74-99) mg/dL Calcium (8.4-10.2) mg/dL Magnesium (1.6-2.3) mg/dL Total Bilirubin (0.2-1.3) mg/dL AST (17-59) U/L ALT (4-49) U/L Alkaline Phosphatase (38-126) U/L Troponin I (0.000-0.034) ng/mL NT-Pro-B Natriuret Pep pg/mL Total Protein (6.3-8.2) g/dL Albumin (3.5-5.0) g/dL Influenza Type A RNA (Not Detectd) Influenza Type B (PCR) (Not Detectd) Group A Strep Rapid Negative (Negative) - Radiology Data Radiology results: report reviewed (abdominal ultrasound shows no aneurysmal dilation of the abdominal aorta.), image reviewed (Chest x-ray shows no acute process) Disposition Clinical Impression: Bronchitis Disposition: HOME SELF-CARE Condition: Stable Instructions (If sedation given, give patient instructions): Acute Bronchitis (ED) Additional Instructions: please follow-up with primary care physician in the next couple days for reche ck. Return for difficulty breathing, fevers, chest pain, worsening symptoms or other concerns. Patient has been sent to [facility] pharmacy. Prescriptions: Albuterol Inhaler [Ventolin Hfa Inhaler] 2 puff INHALATION Q4HR PRN #1 inhaler PRN Reason: Dyspnea Is patient prescribed a controlled substance at d/c from ED?: No Referrals: Ck Patel MD [Primary Care Provider] - 1-2 days Time of Disposition: 14:01
[2019-09-30 11:09] LABS: Basophils # (A) 0.1 k/uL (0-0.2); Basophils % (A) 1 %; Eosinophils # (A) 0.2 k/uL (0-0.7); Eosinophils % (A) 2 %; HCT 50.6 % (39.0-53.0); Lymphocytes # (A) 1.8 k/uL (1.0-4.8); Lymphocytes % (A) 21 %; MCH 31.3 pg (25.0-35.0); MCHC 33.7 g/dL (31.0-37.0); MCV 93.1 fL (80.0-100.0); Mean Platelet Volume 7.7; Monocytes # (A) 0.5 k/uL (0-1.0); Monocytes % (A) 6 %; Neutrophils # (A) 5.8 k/uL (1.3-7.7); Neutrophils % (A) 67 %; Platelet Count 229 k/uL (150-450); RBC 5.44 m/uL (4.30-5.90); WBC 8.7 k/uL (3.8-10.6)
[2019-09-30 11:20] LABS: ALT 29 U/L (4-49); AST 41 U/L (17-59); African American GFR (CKD) >90 (>60 ml/min/1.73 sqM); Albumin 4.5 g/dL (3.5-5.0); Alkaline Phosphatase 93 U/L (38-126); Anion Gap 10 mmol/L; Blood Urea Nitrogen 18 mg/dL (9-20); Calcium 9.4 mg/dL (8.4-10.2); Carbon Dioxide 26 mmol/L (22-30); Chloride 104 mmol/L (98-107); Glucose 116 mg/dL (74-99); Magnesium 2.5 mg/dL (1.6-2.3); Non-African American GFR(CKD) 83 (>60 ml/min/1.73 sqM); Potassium 4.1 mmol/L (3.5-5.1); Sodium 140 mmol/L (137-145)
--- NOTE | 2019-09-30 11:26 | XR ---
EXAMINATION TYPE: XR chest 2V DATE OF EXAM: 09/30/2019 COMPARISON: 04/11/2017 HISTORY: Chest pain TECHNIQUE: Frontal and lateral views of the chest are obtained. FINDINGS: There is no focal air space opacity. No evidence for pneumothorax. No pleural effusion. The cardiac silhouette size is within normal limits. The osseous structures are grossly intact. IMPRESSION: 1. No acute cardiopulmonary process.
[2019-09-30 11:58] LABS: INR 0.9 (<1.2); Partial Thromboplastin Time 26.3 sec (22.0-30.0); Prothrombin Time 10.1 sec (9.0-12.0)
--- NOTE | 2019-09-30 12:00 | US ---
EXAMINATION TYPE: US duplex aorta DATE OF EXAM: 09/30/2019 COMPARISON: NONE CLINICAL HISTORY: evaluate aortic aneurysm, abdominal pain. HX OF THORACIC ANEURYSM. EXAM MEASUREMENTS: Abdominal Aorta: Proximal: 2.3 X 2.6 CM Mid: 1.8 X 2.0 CM Distal: 1.6 X 1.4 CM Bifurcation: 1.4 CM 1.4 CM IMPRESSION: No aneurysmal dilatation of the abdominal aorta and the visualized portions.
[2019-09-30 12:02] LABS: D-Dimer 0.81 mg/L FEU (<0.60)
--- NOTE | 2019-09-30 13:12 | CT ---
EXAMINATION TYPE: CT angio chest DATE OF EXAM: 09/30/2019 COMPARISON: 06/21/2018 HISTORY: Chest pain and cough CT DLP: 554.8 mGycm CONTRAST: CT chest with contrast and 3D reconstruction with MIP imaging is performed with IV Contrast, patient injected with 90 mL of Isovue 370. Contrast-enhanced CT of the chest was performed through the course of the pulmonary arteries with maxi g and mediastinal window settings submitted. 3D reconstruction with MIP imaging was also performed. PULMONARY ARTERIES: The pulmonary arteries and their major tributaries are patent. I do not see saida dence for sizable filling defect to suggest pulmonary embolic process. LUNGS: The lungs are clear and free of infiltrate. No evidence for atelectasis. No pulmonary nodule or mass is detected. No pleural effusion. MEDIASTINUM: Thoracic aorta is of normal caliber,however, evaluation is limited given timing of the contrast bolus. If there is concern for thoracic aortic pathology consider BLAKE. Correlate clinicall y . The heart is not enlarged. No evidence for mediastinal mass. No mediastinal lymph nodes greater than 1cm. HILAR STRUCTURES: No evidence for mass. No hilar lymph nodes greater than 1 cm. UPPER ABDOMEN: No significant abnormality is seen. IMPRESSION: 1. No evidence for Pulmonary embolism at this time.
[2019-09-30 14:12] VITALS: BP 118/88; PULSE 73; RESP 10
== END 2019-09-30 14:18 | disposition home or self-care (01) ==
LOC: EC 10:26
DX: J40 Bronchitis, not specified as acute or chronic (principal); F17.200 Nicotine dependence, unspecified, uncomplicated; Z79.899 Other long term (current) drug therapy; Z87.01 Personal history of pneumonia (recurrent)
CPT/HCPCS: 36415; 93005; 85379; 83880; 80053; 83735; 84484; 85025; 85610; 85730; 87081; 87430; 87502; 71046; 93979; 71275; 99284; 96360; 96361 ×2; Q9967

== ENCOUNTER 2020-01-04 14:24 | Emergency (ER) | payer OTHER ==
[2020-01-04 14:32] VITALS: BP 142/88; PULSE 63; RESP 18; TEMP 98
[2020-01-04] MEDS ORDERED: KETOROLAC 30 MG/ML 1 ML VIAL IM STA (14:42)
--- NOTE | 2020-01-04 14:49 | ED ---
General Adult HPI - General Chief complaint: Extremity Problem,Nontraumatic Stated complaint: knee pain Time Seen by Provider: 01/04/20 14:33 Source: patient, RN notes reviewed Mode of arrival: ambulatory Limitations: no limitations - History of Present Illness Initial comments: 49-year-old male presents to the emergency department for a chief complaint of left knee pain. Patient states that 6 weeks ago he went to turn and twisted his knee wrong. States he felt a sudden pain on the lateral aspect of the left knee. Since that time his knee has been becoming more stiff. States it is painful to walk on. Patient denies any calf pain. Denies any swelling of the leg besides the anterior knee. Patient denies any fevers or chills. Patient has never had surgery on that knee.Patient has no other complaints at this time including shortness of breath, chest pain, abdominal pain, nausea or vomiting, headache, or visual changes. - Related Data Home Medications Medication Instructions Recorded Confirmed Metoprolol Succinate (ER) [Toprol 50 mg PO HS 09/30/19 09/30/19 XL] Famotidine [Pepcid] 20 mg PO BID 01/04/20 01/04/20 amLODIPine [Norvasc] 10 mg PO HS 01/04/20 01/04/20 Allergies Allergy/AdvReac Type Severity Reaction Status Date / Time No Known Allergies Allergy Verified 01/04/20 15:07 Review of Systems ROS Statement: Those systems with pertinent positive or pertinent negative responses have been documented in the HPI. ROS Other: All systems not noted in ROS Statement are negative. Past Medical History Past Medical History: Deep Vein Thrombosis (DVT), Pneumonia, Renal Disease Additional Past Medical History / Comment(s): DVT R leg, congenital kidney defect with surgeries History of Any Multi-Drug Resistant Organisms: None Reported Past Surgical History: Cholecystectomy, Hernia Repair Additional Past Surgical History / Comment(s): KIDNEY SURGERY twice for congenital defect, 3 fatty tumors removed from trunk, bilateral inguinal hernia repairs Past Anesthesia/Blood Transfusion Reactions: Motion Sickness Past Psychological History: Anxiety, Depression Smoking Status: Current every day smoker Past Alcohol Use History: None Reported Past Drug Use History: None Reported - Past Family History Father Family Medical History: Congestive Heart Failure (CHF) Additional Family Medical History / Comment(s): Father of CHF at the age of 77yrs. Mother Family Medical History: No Reported History Additional Family Medical History / Comment(s): Pt states mother is healthy. General Exam Limitations: no limitations General appearance: alert, in no apparent distress Head exam: Present: atraumatic, normocephalic, normal inspection Eye exam: Present: normal appearance, PERRL, EOMI. Absent: scleral icterus, conjunctival injection, periorbital swelling ENT exam: Present: normal exam, mucous membranes moist Neck exam: Present: normal inspection. Absent: tenderness, meningismus, lymphadenopathy Respiratory exam: Present: normal lung sounds bilaterally. Absent: respiratory distress, wheezes, rales, rhonchi, stridor Cardiovascular Exam: Present: regular rate, normal rhythm, normal heart sounds. Absent: systolic murmur, diastolic murmur, rubs, gallop, clicks Extremities exam: Present: normal capillary refill (Capillary refill less than 2 seconds, DP pulse 2+), joint swelling (Patient has minimal edema noted to the left anterior knee.). Absent: full ROM (Patient has about 90 flexion of the left knee, full extension.), tenderness (No tenderness behind the left knee.), pedal edema, calf tenderness (Patient has no erythema or edema or pain of the left calf.) Course Vital Signs 01/04/20 14:27 Temperature 98 F Pulse Rate 63 Respiratory 18 Rate Blood Pressure 142/88 O2 Sat by Pulse 99 Oximetry Medical Decision Making - Medical Decision Making 49-year-old presents with left knee pain. Patient has had knee pain for 6 weeks after twisting wrong. States it is painful to bend his knee past 90. Denies fevers or chills. Denies calf pain. Physical exam reveals a non-erythematous left knee. There is minimal edema likely present over the anterior aspect of the left knee. Patient is ambulatory on the left knee but does state it is painful to use stairs. Patient was given Toradol which did help with his pain.X-ray of the left knee shows no fracture or dislocation. Joint spaces are fairly normal. There is no sign of joint effusion. There are curvilinear wire metallic densities at the proximal tibia consistent with previous surgery. No acute abnormality. Patient does not have a history of surgery. He does use a rotary wire brush and these could be from that. Skin exam is normal. There is no sign of infection. Patient will follow-up with orthopedics. He discussed her to return parameters including fever or redness. I discussed this case with attending Dr. Pastrana who agrees with this assessment and treatment plan. Disposition Clinical Impression: Knee pain, left Narrative: possible foreign body Disposition: HOME SELF-CARE Condition: Good Instructions (If sedation given, give patient instructions): Knee Pain (ED) Additional Instructions: Please take Motrin and Tylenol for pain. Rest ice and elevate the left knee. Follow-up with orthopedics in one to 2 days. Discussed possible foreign bodies. Return to the emergency department for any worsening symptoms. Is patient prescribed a controlled substance at d/c from ED?: No Referrals: Ck Patel MD [Primary Care Provider] - 1-2 days Samm Estrada MD [STAFF PHYSICIAN] - 1-2 days Time of Disposition: 15:22
--- NOTE | 2020-01-04 15:09 | XR ---
EXAMINATION TYPE: XR knee complete LT DATE OF EXAM: 01/04/2020 COMPARISON: NONE HISTORY: Knee pain TECHNIQUE: 3 views FINDINGS: I see no fracture nor dislocation. Joint spaces are fairly normal. There is no sign of a ramos int effusion. There are curvilinear wire metallic densities at the proximal tibia consistent with pre vious surgery. IMPRESSION: No acute abnormality of the left knee.
== END 2020-01-04 15:25 | disposition home or self-care (01) ==
LOC: EC 14:24
DX: M25.562 Pain in left knee (principal); F17.200 Nicotine dependence, unspecified, uncomplicated; Z79.899 Other long term (current) drug therapy
CPT/HCPCS: 73562; 99283; 96372; J1885

== ENCOUNTER 2020-04-11 20:55 | Emergency (ER) | payer OTHER ==
--- NOTE | 2020-04-11 21:27 | ED ---
Extremity Problem HPI - General Chief complaint: Extremity Problem,Nontraumatic Stated complaint: Lt Leg Pain Time Seen by Provider: 04/11/20 21:07 Source: patient Mode of arrival: ambulatory Limitations: no limitations - History of Present Illness Initial comments: Patient is a 49-year-old male presenting to the emergency Department with complaints of chronic left knee pain. Patient states he went back to work on Monday and started noticing an increase in swelling in his bilateral lower legs but it seems to be worse in the left lower leg. Patient states he was evaluated back in December for his left knee pain after a fall. X-rays were negative. He did follow up with [facility] and did have an MRI which showed no acute findings. They said it could be arthritis. Patient states he has not had any more trauma or falls to this knee. He states he just went back to work after being off for 3 months. He does admit to history of a DVT of the right lower leg after he had a fracture. He was on a liquids for a few months but is currently not on blood thinners. He denies any fever, chills, chest pain, short of breath, cough. He has no further complaints at this time. Upon arrival to the ER his vitals are stable. - Related Data Home Medications Medication Instructions Recorded Confirmed Metoprolol Succinate (ER) [Toprol 50 mg PO HS 09/30/19 01/04/20 XL] Famotidine [Pepcid] 20 mg PO BID 01/04/20 01/04/20 amLODIPine [Norvasc] 10 mg PO HS 01/04/20 01/04/20 Previous Rx's Medication Instructions Recorded Ketorolac [Toradol] 10 mg PO Q8HR #10 tab 04/11/20 Allergies Allergy/AdvReac Type Severity Reaction Status Date / Time No Known Allergies Allergy Verified 04/11/20 21:02 Review of Systems ROS Statement: Those systems with pertinent positive or pertinent negative responses have been documented in the HPI. ROS Other: All systems not noted in ROS Statement are negative. Past Medical History Past Medical History: Deep Vein Thrombosis (DVT), Pneumonia, Renal Disease Additional Past Medical History / Comment(s): DVT R leg, congenital kidney defect with surgeries History of Any Multi-Drug Resistant Organisms: None Reported Past Surgical History: Cholecystectomy, Hernia Repair Additional Past Surgical History / Comment(s): KIDNEY SURGERY twice for congenital defect, 3 fatty tumors removed from trunk, bilateral inguinal hernia repairs Past Anesthesia/Blood Transfusion Reactions: Motion Sickness Past Psychological History: Anxiety, Depression Smoking Status: Current every day smoker Past Alcohol Use History: None Reported Past Drug Use History: None Reported - Past Family History Father Family Medical History: Congestive Heart Failure (CHF) Additional Family Medical History / Comment(s): Father of CHF at the age of 77yrs. Mother Family Medical History: No Reported History Additional Family Medical History / Comment(s): Pt states mother is healthy. General Exam - General Exam Comments Initial Comments: GENERAL: Well-appearing, well-nourished and in no acute distress. HEAD: Atraumatic, normocephalic. EYES: Pupils equal round and reactive to light, extraocular movements intact, sclera anicteric, conjunctiva are normal. ENT: TMs normal, nares patent, oropharynx clear without exudates. Moist mucous membranes. NECK: Normal range of motion, supple without lymphadenopathy or JVD. LUNGS: Breath sounds clear to auscultation bilaterally and equal. No wheezes rales or rhonchi. HEART: Regular rate and rhythm without murmurs, rubs or gallops. ABDOMEN: Soft, nontender, normoactive bowel sounds. No guarding, no rebound. No masses appreciated. : Deferred EXTREMITIES: Patient has normal range of motion of his bilateral knees. He does have some mild pitting edema bilateral lower extremities, increased on the left versus the right. He is neurovascular intact. No clubbing or cyanosis. NEUROLOGICAL: Cranial nerves II through XII grossly intact. Normal speech, normal gait. PSYCH: Normal mood, normal affect. SKIN: Warm, Dry, normal turgor. Patient does have some mild skin changes noted on the left lower extremity, this does not look infectious in nature, most likely venous stasis. Limitations: no limitations Course Vital Signs 04/11/20 04/11/20 20:59 22:40 Temperature 98.2 F 97.9 F Pulse Rate 92 81 Respiratory 16 18 Rate Blood Pressure 128/83 140/99 O2 Sat by Pulse 97 97 Oximetry Medical Decision Making - Medical Decision Making Patient is a 49-year-old male here for chronic left knee pain as well as bilateral lower leg edema which is increased on the left versus the right. He does have history of DVT in the right lower leg. He is not currently on blood thinners. Ultrasound of the left lower extremity revealed no evidence for DVT. I did review patient's x-ray of his left knee and December which had no acute findings. He also had an MRI. I discussed with patient that he needs to follow back up with [facility] in regards to his chronic knee pain. I recommended elevation 2-3 times a day above his heart for lower leg edema. He will follow up with his PCP as well. He is in agreement with this plan of care. Patient is requesting pain medicine. He states Tylenol and Motrin does not work. I will send him a few tablets of Toradol to take. He is in agreement. He is stable for discharge. Return parameters were discussed with the patient and he verbalized understanding. Case discussed with Dr. Romero. Disposition Clinical Impression: Chronic pain of left knee, Bilateral lower extremity edema Disposition: HOME SELF-CARE Condition: Stable Instructions (If sedation given, give patient instructions): Knee Pain (ED) Additional Instructions: Please return to the Emergency Department if symptoms worsen or any other concerns. Follow-up with orthopedics regarding chronic left knee pain. Elevate the legs above the heart 2-3 times a day. Follow-up with PCP. Prescriptions: Ketorolac [Toradol] 10 mg PO Q8HR #10 tab Is patient prescribed a controlled substance at d/c from ED?: No Referrals: Ck Patel MD [Primary Care Provider] - 1-2 days
--- NOTE | 2020-04-11 22:06 | US ---
EXAMINATION TYPE: US venous doppler duplex LE LT DATE OF EXAM: 04/11/2020 9:57 PM COMPARISON: Right leg only CLINICAL HISTORY: swelling, pain, hx of DVT. Pain left knee SIDE PERFORMED: Left TECHNIQUE: The lower extremity deep venous system is examined utilizing real time linear array sonog shabnam with graded compression, doppler sonography and color-flow sonography. VESSELS IMAGED: External Iliac Vein (EIV) Common Femoral Vein Deep Femoral Vein Greater Saphenous Vein * Femoral Vein Popliteal Vein Small Saphenous Vein * Proximal Calf Veins (* superficial vessels) Left Leg: Negative for DVT IMPRESSION: No evidence of deep vein thrombosis in the left leg.
[2020-04-11 22:41] VITALS: BP 140/99; PULSE 81; RESP 18; TEMP 97.9
== END 2020-04-11 22:41 | disposition home or self-care (01) ==
LOC: EC 20:55
DX: R60.0 Localized edema (principal); G89.29 Other chronic pain; M25.562 Pain in left knee; F17.200 Nicotine dependence, unspecified, uncomplicated; Z86.718 Personal history of other venous thrombosis and embolism
CPT/HCPCS: 99283

== ENCOUNTER 2020-07-25 20:50 | Emergency (ER) | payer OTHER ==
[2020-07-25 21:00] VITALS: BP 149/84; PULSE 92; RESP 18; TEMP 98.6
[2020-07-25] MEDS ORDERED: CEPHALEXIN 500 MG CAP PO STA (21:26)
[2020-07-25] MEDS ORDERED: SULFAMETHOX-TMP 800-160MG 1 EACH TAB PO STA (21:26)
--- NOTE | 2020-07-25 21:28 | ED ---
General Adult HPI - General Chief complaint: Extremity Problem,Nontraumatic Stated complaint: Infection in R Knee Time Seen by Provider: 07/25/20 21:21 Source: patient Mode of arrival: ambulatory Limitations: no limitations - History of Present Illness Initial comments: Patient presents the ED with his for evaluation. Patient states that he noticed a skin lesion to his right anterior knee about 2 days ago, and he states that he has been having increasing right knee pain and redness since then. Patient is unsure if he bumped his right knee on something. Patient denies fever or chills, headache, focal neuro deficit, chest pain, dyspnea, dizziness, abdominal pain, nausea or vomiting, or any other symptoms or complaints. - Related Data Home Medications Medication Instructions Recorded Confirmed Metoprolol Succinate (ER) [Toprol 50 mg PO HS 09/30/19 01/04/20 XL] Famotidine [Pepcid] 20 mg PO BID 01/04/20 01/04/20 amLODIPine [Norvasc] 10 mg PO HS 01/04/20 01/04/20 Previous Rx's Medication Instructions Recorded Ketorolac [Toradol] 10 mg PO Q8HR #10 tab 04/11/20 Cephalexin [Keflex] 500 mg PO QID #40 cap 07/25/20 Sulfamethox-Tmp 800-160Mg [Bactrim 1 each PO Q12HR 10 Days #20 tab 07/25/20 DS 800-160 mg] Allergies Allergy/AdvReac Type Severity Reaction Status Date / Time No Known Allergies Allergy Verified 07/25/20 21:10 Review of Systems ROS Statement: Those systems with pertinent positive or pertinent negative responses have been documented in the HPI. ROS Other: All systems not noted in ROS Statement are negative. Past Medical History Past Medical History: Deep Vein Thrombosis (DVT), Pneumonia, Renal Disease Additional Past Medical History / Comment(s): DVT R leg, congenital kidney defect with surgeries History of Any Multi-Drug Resistant Organisms: None Reported Past Surgical History: Cholecystectomy, Hernia Repair Additional Past Surgical History / Comment(s): KIDNEY SURGERY twice for congenital defect, 3 fatty tumors removed from trunk, bilateral inguinal hernia repairs Past Anesthesia/Blood Transfusion Reactions: Motion Sickness Past Psychological History: Anxiety, Depression Smoking Status: Current some day smoker Past Alcohol Use History: None Reported Past Drug Use History: None Reported - Past Family History Father Family Medical History: Congestive Heart Failure (CHF) Additional Family Medical History / Comment(s): Father of CHF at the age of 77yrs. Mother Family Medical History: No Reported History Additional Family Medical History / Comment(s): Pt states mother is healthy. General Exam Limitations: no limitations General appearance: alert, in no apparent distress Head exam: Present: atraumatic, normocephalic Eye exam: Present: normal appearance, EOMI ENT exam: Present: mucous membranes moist Respiratory exam: Present: normal lung sounds bilaterally. Absent: respiratory distress, wheezes, rales, rhonchi Cardiovascular Exam: Present: regular rate, normal rhythm, normal heart sounds, other (Normal radial pulses bilaterally) GI/Abdominal exam: Present: soft. Absent: distended, tenderness, guarding Extremities exam: Present: full ROM, other (A small wound is noted over the patient's right anterior knee with surrounding erythema and tenderness, which I have outlined using a skin marker; the patient's erythema extends to just below and above his right knee; no crepitation is appreciated). Absent: pedal edema, calf tenderness Neurological exam: Present: alert, oriented X3. Absent: motor sensory deficit Psychiatric exam: Present: normal affect, normal mood Skin exam: Present: warm, dry Course Vital Signs 07/25/20 20:55 Temperature 98.6 F Pulse Rate 92 Respiratory 18 Rate Blood Pressure 149/84 O2 Sat by Pulse 99 Oximetry Medical Decision Making - Medical Decision Making Patient is afebrile. Patient's right knee x-rays do not demonstrate any subcutaneous gas. Will treat the patient with courses of Keflex and Bactrim for treatment of his right lower extremity cellulitis. Patient was instructed to watch for increasing erythema and pain, and to return to the ED immediately should he develop spreading of his cellulitis. Patient was counseled about cellulitis, and he was clearly explained return and follow-up instructions. Patient was instructed to follow up closely with his primary care provider. Patient was given his first dose of oral Keflex and Bactrim in the ED. - Radiology Data Radiology results: image reviewed (Right knee x-rays: No acute fracture or dislocation, no subcutaneous gas is seen) Disposition Clinical Impression: Cellulitis of right lower extremity Disposition: HOME SELF-CARE Condition: Stable Instructions (If sedation given, give patient instructions): Cellulitis (ED) Additional Instructions: Return to the ER immediately should you develop new or worsening pain, increased right knee redness, a fever, feeling dizzy or faint, shortness of breath, vomiting, or new or worsening symptoms. Follow up closely with your primary care provider. Prescriptions: Sulfamethox-Tmp 800-160Mg [Bactrim DS 800-160 mg] 1 each PO Q12HR 10 Days #20 tab Cephalexin [Keflex] 500 mg PO QID #40 cap Is patient prescribed a controlled substance at d/c from ED?: No Referrals: Ck Patel MD [Primary Care Provider] - 1-2 days Time of Disposition: 22:13
--- NOTE | 2020-07-25 22:02 | XR ---
EXAMINATION TYPE: XR knee complete RT DATE OF EXAM: 07/25/2020 COMPARISON: NONE HISTORY: Knee pain TECHNIQUE: 3 views FINDINGS: There is soft tissue swelling anterior to the patella. I see no fracture nor dislocation. T here is no evidence of knee joint effusion. IMPRESSION: Soft tissue swelling suggestive of patella bursitis. No fracture seen.
== END 2020-07-25 22:22 | disposition home or self-care (01) ==
LOC: EC 20:50
DX: L03.115 Cellulitis of right lower limb (principal); F17.200 Nicotine dependence, unspecified, uncomplicated; Z79.899 Other long term (current) drug therapy; Z86.718 Personal history of other venous thrombosis and embolism
CPT/HCPCS: 99283

== ENCOUNTER → 2021-12-08 | Outpatient (CLI) | payer OTHER ==
[2021-12-08 13:39] LABS: Basophils % (A) 1 %; Eosinophils # (A) 0.2 k/uL (0-0.7); Eosinophils % (A) 3 %; HCT 51.4 % (39.0-53.0); HGB 16.9 gm/dL (13.0-17.5); Lymphocytes # (A) 2.4 k/uL (1.0-4.8); Lymphocytes % (A) 33 %; MCH 31.4 pg (25.0-35.0); MCHC 32.8 g/dL (31.0-37.0); MCV 95.7 fL (80.0-100.0); Mean Platelet Volume 7.4; Monocytes # (A) 0.4 k/uL (0-1.0); Monocytes % (A) 5 %; Neutrophils # (A) 4.2 k/uL (1.3-7.7); Neutrophils % (A) 58 %; Platelet Count 268 k/uL (150-450); RBC 5.37 m/uL (4.30-5.90); RDW 13.1 % (11.5-15.5); WBC 7.3 k/uL (3.8-10.6)
[2021-12-08 13:57] LABS: ALT 26 U/L (4-49); AST 36 U/L (17-59); African American GFR (CKD) >90 (>60 ml/min/1.73 sqM); Albumin 4.7 g/dL (3.5-5.0); Albumin/Globulin Ratio 1.5; Alkaline Phosphatase 87 U/L (38-126); Anion Gap 7 mmol/L; Blood Urea Nitrogen 19 mg/dL (9-20); Calcium 9.5 mg/dL (8.4-10.2); Carbon Dioxide 27 mmol/L (22-30); Chloride 105 mmol/L (98-107); Globulin 3.2 g/dL; Glucose 82 mg/dL (74-99); Non-African American GFR(CKD) >90 (>60 ml/min/1.73 sqM); Potassium 3.9 mmol/L (3.5-5.1); Sodium 139 mmol/L (137-145); Total Bilirubin 0.6 mg/dL (0.2-1.3); Total Protein 7.9 g/dL (6.3-8.2)
--- NOTE | 2021-12-08 14:00 | CT ---
EXAMINATION TYPE: CT angio chest DATE OF EXAM: 12/08/2021 1:34 PM COMPARISON: 09/30/2019 HISTORY: chest pressure, known aneurysm CT DLP: 953.5 mGycm Automated exposure control for dose reduction was used. CONTRAST: CTA scan of the thorax is performed without and with IV Contrast, patient injected with 100 mL of Iso samuel 370, pulmonary embolism protocol. . FINDINGS: LUNGS: The lungs are grossly clear, with minimal subsegmental changes at the right lung base. There i s a 4 mm nodule right middle lobe image 31. There is no pleural effusion or pneumothorax seen. The tracheobronchial tree is patent. MEDIASTINUM: There is satisfactory enhancement of the pulmonary artery and its branches, there is no CT evidence for pulmonary embolism. There are no greater than 1 cm hilar or mediastinal lymph nodes. The aortic root measures 4.8 cm corresponding. Coronary artery calcification noted. Mild cardiomegal y. OTHER: Surgical clips in the gallbladder fossa. IMPRESSION: 1. 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 There is coronary micha ry calcification correlate clinically. 2. There is a 4 mm nodule right middle lobe too small to characterize. Not seen definitively on prior exam. Twelve-month follow-up should be obtained for further evaluation. 3. Subsegmental changes right lung base correlate for atelectasis versus early infiltrate.
[2021-12-08 14:08] LABS: Creatine Kinase MB 1.1 ng/mL (0.0-2.4); Troponin I <0.012 ng/mL (0.000-0.034)
== END | disposition home or self-care (01) ==
LOC: RADCTMAIN 12:39
PROVIDERS: ATTEND Family Medicine
DX: I71.2 Thoracic aortic aneurysm, without rupture (principal); I25.10 Atherosclerotic heart disease of native coronary artery without angina pectoris; R91.1 Solitary pulmonary nodule
CPT/HCPCS: 83880; 80053; 82553; 84484; 85025; 71275; 36415; Q9967

== ENCOUNTER 2021-12-15 21:01 | Emergency (ER) | payer OTHER ==
[2021-12-15 21:11] VITALS: RESP 18; TEMP 98.1
--- NOTE | 2021-12-15 21:39 | ED ---
General Adult HPI - General Chief complaint: Dizziness Stated complaint: lightheaded, dizziness Time Seen by Provider: 12/15/21 21:15 Source: patient Mode of arrival: ambulatory Limitations: no limitations - History of Present Illness Initial comments: This patient is a 51-year-old man here to be evaluated for lightheadedness that is been going on since about 5:30 when he had gotten out of bed. He states that it felt this like he was going to pass out so he rested when he got back up he was again feeling off balance and lightheaded. The patient denied any associated symptoms. No chest pain, dyspnea, palpitations, diaphoresis, nausea or vomiting. The patient states that he is scheduled to have echocardiogram on Monday. Onset/Timin -: hour(s) Severity scale (1-10): 0 Consistency: constant Improves with: none Worsens with: none Treatments Prior to Arrival: none - Related Data Home Medications Medication Instructions Recorded Confirmed Metoprolol Succinate (ER) [Toprol 50 mg PO DAILY@189909/30/19 12/15/21 XL] Famotidine [Pepcid] 20 mg PO DAILY 01/04/20 12/15/21 amLODIPine [Norvasc] 10 mg PO DAILY@1900 01/04/20 12/15/21 Melatonin 10 mg PO DAILY@189912/15/21 12/15/21 Allergies Allergy/AdvReac Type Severity Reaction Status Date / Time No Known Allergies Allergy Verified 12/15/21 21:11 Review of Systems ROS Statement: Those systems with pertinent positive or pertinent negative responses have been documented in the HPI. ROS Other: All systems not noted in ROS Statement are negative. Constitutional: Denies: fever, chills, weakness Eyes: Denies: vision change Respiratory: Denies: cough, dyspnea Cardiovascular: Denies: chest pain, palpitations, orthopnea, edema, syncope Gastrointestinal: Denies: abdominal pain, vomiting, diarrhea, melena, hematochezia Genitourinary: Denies: dysuria, hematuria Musculoskeletal: Denies: back pain Skin: Denies: rash Neurological: Denies: headache, weakness Past Medical History Past Medical History: Deep Vein Thrombosis (DVT), Hypertension, Pneumonia, Renal Disease Additional Past Medical History / Comment(s): DVT R leg, congenital kidney defect with surgeries History of Any Multi-Drug Resistant Organisms: None Reported Past Surgical History: Cholecystectomy, Hernia Repair Additional Past Surgical History / Comment(s): KIDNEY SURGERY twice for congenital defect, 3 fatty tumors removed from trunk, bilateral inguinal hernia repairs Past Anesthesia/Blood Transfusion Reactions: Motion Sickness Past Psychological History: Anxiety, Depression Smoking Status: Current every day smoker Past Alcohol Use History: None Reported Past Drug Use History: None Reported - Past Family History Father Family Medical History: Congestive Heart Failure (CHF) Additional Family Medical History / Comment(s): Father of CHF at the age of 77yrs. Mother Family Medical History: No Reported History Additional Family Medical History / Comment(s): Pt states mother is healthy. General Exam Limitations: no limitations General appearance: alert, in no apparent distress Head exam: Present: atraumatic, normocephalic Eye exam: Present: normal appearance. Absent: scleral icterus, conjunctival injection Neck exam: Present: normal inspection Respiratory exam: Present: normal lung sounds bilaterally. Absent: respiratory distress, wheezes, rales, rhonchi, stridor Cardiovascular Exam: Present: regular rate, normal rhythm, normal heart sounds, other (Occasional dropped beat on auscultation, these correlate with PVC on the monitor). Absent: systolic murmur, diastolic murmur, rubs, gallop GI/Abdominal exam: Present: soft. Absent: distended, tenderness, guarding, rebound, rigid, mass, pulsatile mass, hernia Extremities exam: Present: normal inspection, normal capillary refill. Absent: pedal edema, calf tenderness Back exam: Present: normal inspection. Absent: CVA tenderness (R), CVA tenderness (L) Neurological exam: Present: alert, oriented X3, CN II-XII intact Skin exam: Present: warm, dry, intact, normal color. Absent: rash Course Vital Signs 12/15/21 21:08 Temperature 98.1 F Pulse Rate 75 Respiratory 18 Rate Blood Pressure 158/92 O2 Sat by Pulse 98 Oximetry EKG Findings - EKG Results: EKG: interpreted by MARIA FERNANDA, sinus rhythm (66 bpm), normal ST/T - Blocks, [place], Hypertrophy, ST Abn: AV and intraventricular conduction: right bundle branch block (fixed/intermittent, complete/incomplete) (Incomplete) QRS axis and voltage: left axis deviation (-30 to -90) Medical Decision Making - Lab Data Result diagrams: 12/15/21 21:59 03/02/22 21:59 Lab Results 12/15/21 12/15/21 12/15/21 Range/Units 21:59 21:59 21:59 WBC 6.2 (3.8-10.6) k/uL RBC 4.82 (4.30-5.90) m/uL Hgb 15.4 (13.0-17.5) gm/dL Hct 45.9 (39.0-53.0) % MCV 95.1 (80.0-100.0) fL MCH 31.9 (25.0-35.0) pg MCHC 33.5 (31.0-37.0) g/dL RDW 13.1 (11.5-15.5) % Plt Count 212 (150-450) k/uL MPV 7.6 Neutrophils % 65 % Lymphocytes % 25 % Monocytes % 5 % Eosinophils % 3 % Basophils % 1 % Neutrophils # 4.0 (1.3-7.7) k/uL Lymphocytes # 1.5 (1.0-4.8) k/uL Monocytes # 0.3 (0-1.0) k/uL Eosinophils # 0.2 (0-0.7) k/uL Basophils # 0.1 (0-0.2) k/uL Sodium 137 (137-145) mmol/L Potassium 4.0 (3.5-5.1) mmol/L Chloride 105 (98-107) mmol/L Carbon Dioxide 23 (22-30) mmol/L Anion Gap 9 mmol/L BUN 15 (9-20) mg/dL Creatinine 0.97 (0.66-1.25) mg/dL Est GFR (CKD-EPI)AfAm >90 (>60 ml/min/1.73 sqM) Est GFR (CKD-EPI)NonAf >90 (>60 ml/min/1.73 sqM) Glucose 106 H (74-99) mg/dL Plasma Lactic Acid Andrew 1.0 (0.7-2.0) mmol/L Calcium 8.8 (8.4-10.2) mg/dL Total Bilirubin 0.8 (0.2-1.3) mg/dL AST 31 (17-59) U/L ALT 20 (4-49) U/L Alkaline Phosphatase 69 (38-126) U/L Troponin I (0.000-0.034) ng/mL Total Protein 7.0 (6.3-8.2) g/dL Albumin 4.1 (3.5-5.0) g/dL Urine Color Urine Appearance (Clear) Urine pH (5.0-8.0) Ur Specific Alk[place] (1.001-1.035) Urine Protein (Negative) Urine Glucose (UA) (Negative) Urine Ketones (Negative) Urine Blood (Negative) Urine Nitrite (Negative) Urine Bilirubin (Negative) Urine Urobilinogen (<2.0) mg/dL Ur Leukocyte Esterase (Negative) 12/15/21 12/15/21 Range/Units 21:59 21:59 WBC (3.8-10.6) k/uL RBC (4.30-5.90) m/uL Hgb (13.0-17.5) gm/dL Hct (39.0-53.0) % MCV (80.0-100.0) fL MCH (25.0-35.0) pg MCHC (31.0-37.0) g/dL RDW (11.5-15.5) % Plt Count (150-450) k/uL MPV Neutrophils % % Lymphocytes % % Monocytes % % Eosinophils % % Basophils % % Neutrophils # (1.3-7.7) k/uL Lymphocytes # (1.0-4.8) k/uL Monocytes # (0-1.0) k/uL Eosinophils # (0-0.7) k/uL Basophils # (0-0.2) k/uL Sodium (137-145) mmol/L Potassium (3.5-5.1) mmol/L Chloride (98-107) mmol/L Carbon Dioxide (22-30) mmol/L Anion Gap mmol/L BUN (9-20) mg/dL Creatinine (0.66-1.25) mg/dL Est GFR (CKD-EPI)AfAm (>60 ml/min/1.73 sqM) Est GFR (CKD-EPI)NonAf (>60 ml/min/1.73 sqM) Glucose (74-99) mg/dL Plasma Lactic Acid Andrew (0.7-2.0) mmol/L Calcium (8.4-10.2) mg/dL Total Bilirubin (0.2-1.3) mg/dL AST (17-59) U/L ALT (4-49) U/L Alkaline Phosphatase (38-126) U/L Troponin I <0.012 (0.000-0.034) ng/mL Total Protein (6.3-8.2) g/dL Albumin (3.5-5.0) g/dL Urine Color Yellow Urine Appearance Clear (Clear) Urine pH 5.5 (5.0-8.0) Ur Specific Alk[place] 1.021 (1.001-1.035) Urine Protein Negative (Negative) Urine Glucose (UA) Negative (Negative) Urine Ketones Negative (Negative) Urine Blood Negative (Negative) Urine Nitrite Negative (Negative) Urine Bilirubin Negative (Negative) Urine Urobilinogen <2.0 (<2.0) mg/dL Ur Leukocyte Esterase Negative (Negative) Disposition Clinical Impression: Light-headed feeling Disposition: HOME SELF-CARE Condition: Good Instructions (If sedation given, give patient instructions): Dizziness (ED) Is patient prescribed a controlled substance at d/c from ED?: No Referrals: Ck Patel MD [Primary Care Provider] - 1-2 days
[2021-12-15] MEDS ORDERED: SODIUM CHLORIDE 0.9% 500 ML 500 ML IV STA (21:52)
[2021-12-15 22:23] LABS: Appearance,Urine Clear (Clear); Basophils # (A) 0.1 k/uL (0-0.2); Basophils % (A) 1 %; Bilirubin,Urine Negative (Negative); Blood,Urine Negative (Negative); Color,Urine Yellow; Eosinophils # (A) 0.2 k/uL (0-0.7); Eosinophils % (A) 3 %; Glucose,Urine (UA) Negative (Negative); HCT 45.9 % (39.0-53.0); HGB 15.4 gm/dL (13.0-17.5); Ketones,Urine Negative (Negative); Leukocyte Esterase,Urine Negative (Negative); Lymphocytes # (A) 1.5 k/uL (1.0-4.8); Lymphocytes % (A) 25 %; MCH 31.9 pg (25.0-35.0); MCHC 33.5 g/dL (31.0-37.0); MCV 95.1 fL (80.0-100.0); Mean Platelet Volume 7.6; Monocytes # (A) 0.3 k/uL (0-1.0); Monocytes % (A) 5 %; Neutrophils % (A) 65 %; Nitrite,Urine Negative (Negative); PH, Urine 5.5 (5.0-8.0); Platelet Count 212 k/uL (150-450); Protein,Urine Negative (Negative); RBC 4.82 m/uL (4.30-5.90); RDW 13.1 % (11.5-15.5); Specific Gravity,Urine 1.021 (1.001-1.035); Urobilinogen,Urine <2.0 mg/dL (<2.0); WBC 6.2 k/uL (3.8-10.6)
--- NOTE | 2021-12-15 22:28 | XR ---
EXAMINATION TYPE: XR chest 1V portable DATE OF EXAM: 12/15/2021 COMPARISON: 09/30/2019 HISTORY: Dizziness TECHNIQUE: FINDINGS: There is some mild linear density right lung base. Heart size is fairly normal. There is no heart failure. There are chest leads. Bony thorax is intact. IMPRESSION: Mild subsegmental atelectasis right lung base. This appears new compared to the old exam.
[2021-12-15 22:37] LABS: ALT 20 U/L (4-49); AST 31 U/L (17-59); African American GFR (CKD) >90 (>60 ml/min/1.73 sqM); Albumin 4.1 g/dL (3.5-5.0); Alkaline Phosphatase 69 U/L (38-126); Blood Urea Nitrogen 15 mg/dL (9-20); Calcium 8.8 mg/dL (8.4-10.2); Carbon Dioxide 23 mmol/L (22-30); Chloride 105 mmol/L (98-107); Glucose 106 mg/dL (74-99); Non-African American GFR(CKD) >90 (>60 ml/min/1.73 sqM); Total Bilirubin 0.8 mg/dL (0.2-1.3)
[2021-12-15 22:38] LABS: Anion Gap 9 mmol/L; Sodium 137 mmol/L (137-145)
[2021-12-15 23:31] VITALS: BP 130/85; PULSE 62
== END 2021-12-15 23:28 | disposition home or self-care (01) ==
LOC: EC 21:01
DX: R42 Dizziness and giddiness (principal); Z86.718 Personal history of other venous thrombosis and embolism; I10 Essential (primary) hypertension; Z90.49 Acquired absence of other specified parts of digestive tract; F41.9 Anxiety disorder, unspecified; F32.A Depression, unspecified; F17.200 Nicotine dependence, unspecified, uncomplicated
CPT/HCPCS: 36415; 71045; 80053; 81003; 83605; 84484; 85025; 93005; 99284

== ENCOUNTER → 2021-12-17 | Outpatient (CLI) | payer OTHER ==
--- NOTE | 2021-12-19 13:41 | ECHOF ---
Referral Reason:I25.10 MEASUREMENTS -------- HEIGHT: 180.3 cm WEIGHT: 104.3 kg BP: RVIDd: 2.7 cm (< 3.3) IVSd: 1.7 cm (0.6 - 1.1) LVIDd: 3.0 cm (3.9 - 5.3) LVPWd: 1.9 cm (0.6 - 1.1) IVSs: 2.0 cm LVIDs: 1.9 cm LVPWs: 2.1 cm Ao Diam: 4.8 cm (2.0 - 3.7) AV Cusp: 2.8 cm (1.5 - 2.6) LA Diam: 3.4 cm (2.7 - 3.8) MV EXCURSION: 17.701 mm (> 18.000) MV EF SLOPE: 79 mm/s (70 - 150) EPSS: 0.4 cm MV E Newton: 0.78 m/s MV DecT: 220 ms MV A Newton: 0.70 m/s MV E/A Ratio: 1.12 RAP: 5.00 mmHg RVSP: 9.71 mmHg FINDINGS -------- This was a technically good study. The left ventricular size is normal. There is moderate concentric left ventricular hypertrophy. O verall left ventricular systolic function is normal with, an EF between 55 - 60 %. The right ventricle is normal in size. The left atrial size is normal. The right atrial size is normal. The aortic valve is trileaflet and appears structurally normal. The mitral valve is normal. There is trace mitral regurgitation. The tricuspid valve appears structurally normal. Trace tricuspid regurgitation present. Right rui tricular systolic pressure is normal at < 35 mmHg. There is no pulmonic regurgitation present. The aortic root is moderately dilated. The aortic root is dilated measuring 4.8 cm. CONCLUSIONS -------- 1. The left ventricular size is normal. 2. There is moderate concentric left ventricular hypertrophy. 3. Overall left ventricular systolic function is normal with, an EF between 55 - 60 %. 4. There is trace mitral regurgitation. 5. Trace tricuspid regurgitation present. 6. The aortic root is moderately dilated. 7. The aortic root is dilated measuring 4.8 cm. CLINICAL PROVIDER TRAINER: Carissa Squires RDCS
== END | disposition home or self-care (01) ==
LOC: RADECHMAIN 16:35
PROVIDERS: ATTEND Family Medicine
DX: I08.1 Rheumatic disorders of both mitral and tricuspid valves (principal); I77.810 Thoracic aortic ectasia
CPT/HCPCS: 93306

== ENCOUNTER 2022-09-18 21:42 | Emergency (ER) | payer OTHER ==
[2022-09-18 22:54] VITALS: BP 164/87; PULSE 85; RESP 18; TEMP 98.1
--- NOTE | 2022-09-18 23:49 | XR ---
EXAMINATION TYPE: XR chest 2V DATE OF EXAM: 09/18/2022 COMPARISON: 12/15/2021 HISTORY: Cough TECHNIQUE: FINDINGS: Heart is normal. There are small linear density right lung base. The other lung russell are clear. There are no hilar masses. IMPRESSION: There is some mild atelectasis right lung base which is similar to the old exam. Normal h eart
[2022-09-19] MEDS ORDERED: Acetaminophen-Codeine 300-30mg TAB PO STA (01:14)
[2022-09-19] MEDS ORDERED: IPRATROPIUM-ALBUTEROL 3 ML NEB INHALATION STA (01:14)
[2022-09-19] MEDS ORDERED: BENZONATATE 100 MG CAP PO STA (01:14)
--- NOTE | 2022-09-19 01:14 | ED ---
URI HPI - General Chief Complaint: Upper Respiratory Infection Stated Complaint: cough Time Seen by Provider: 09/19/22 01:13 Source: patient, RN notes reviewed, old records reviewed Mode of arrival: ambulatory Limitations: no limitations - History of Present Illness Initial Comments: This is a 51-year-old male to the emergency department for evaluation. He is 2 weeks after diagnosis of RSV with persistent cough and congestion. Patient cannot feel risk off his cough is keeping him from sleeping. No chest pain no fevers no significant shortness of breath patient does continue to smoke MD Complaint: fever, cough -: days(s) Severity: moderate Severity scale (1-10): 4 Quality: burning Consistency: intermittent Improves With: nothing Worsens With: nothing Associated Symptoms: cough Treatments Prior to Arrival: none - Related Data Home Medications Medication Instructions Recorded Confirmed Metoprolol Succinate (ER) [Toprol 50 mg PO DAILY@1900 09/30/19 12/15/21 XL] Famotidine [Pepcid] 20 mg PO DAILY 01/04/20 12/15/21 amLODIPine [Norvasc] 10 mg PO DAILY@1900 01/04/20 12/15/21 Melatonin [Melatonin ER] 10 mg PO DAILY@1900 12/15/21 12/15/21 Previous Rx's Medication Instructions Recorded Benzonatate [Tessalon Perles] 100 mg PO TID PRN #15 capsule 09/19/22 predniSONE 50 mg PO DAILY #5 tab 09/19/22 Allergies Allergy/AdvReac Type Severity Reaction Status Date / Time No Known Allergies Allergy Verified 09/18/22 22:54 Review of Systems ROS Statement: Those systems with pertinent positive or pertinent negative responses have been documented in the HPI. ROS Other: All systems not noted in ROS Statement are negative. Past Medical History Past Medical History: Deep Vein Thrombosis (DVT), Hypertension, Pneumonia, Renal Disease Additional Past Medical History / Comment(s): DVT R leg, congenital kidney defect with surgeries History of Any Multi-Drug Resistant Organisms: None Reported Past Surgical History: Cholecystectomy, Hernia Repair Additional Past Surgical History / Comment(s): KIDNEY SURGERY twice for congenital defect, 3 fatty tumors removed from trunk, bilateral inguinal hernia repairs Past Anesthesia/Blood Transfusion Reactions: Motion Sickness Past Psychological History: Anxiety, Depression Smoking Status: Current every day smoker Past Alcohol Use History: None Reported Past Drug Use History: None Reported - Past Family History Father Family Medical History: Congestive Heart Failure (CHF) Additional Family Medical History / Comment(s): Father of CHF at the age of 77yrs. Mother Family Medical History: No Reported History Additional Family Medical History / Comment(s): Pt states mother is healthy. General Exam Limitations: no limitations General appearance: alert, in no apparent distress Head exam: Present: atraumatic, normocephalic, normal inspection Eye exam: Present: normal appearance, PERRL, EOMI. Absent: scleral icterus, conjunctival injection, periorbital swelling ENT exam: Present: normal exam, mucous membranes moist Neck exam: Present: normal inspection. Absent: tenderness, meningismus, lymphadenopathy Respiratory exam: Present: wheezes. Absent: respiratory distress, rales, rhonchi, stridor Cardiovascular Exam: Present: regular rate, normal rhythm, normal heart sounds. Absent: systolic murmur, diastolic murmur, rubs, gallop, clicks GI/Abdominal exam: Present: soft, normal bowel sounds. Absent: distended, tenderness, guarding, rebound, rigid Extremities exam: Present: normal inspection, full ROM, normal capillary refill. Absent: tenderness, pedal edema, joint swelling, calf tenderness Back exam: Present: normal inspection Neurological exam: Present: alert, oriented X3, CN II-XII intact Psychiatric exam: Present: normal affect, normal mood Skin exam: Present: warm, dry, intact, normal color. Absent: rash Course Vital Signs 09/18/22 22:52 Temperature 98.1 F Pulse Rate 85 Respiratory 18 Rate Blood Pressure 164/87 O2 Sat by Pulse 96 Oximetry - Reevaluation(s) Reevaluation #1: 09/19/22 01:32 Records review of Reevaluation #2: 09/19/22 01:32 Spoke patient's cough is improved here in the ER Reevaluation #3: 09/19/22 01:33 Spoke patient regarding plan of care he agrees Disposition Clinical Impression: Cough, Bronchitis Disposition: HOME SELF-CARE Condition: Good Instructions (If sedation given, give patient instructions): Chronic Cough (ED), Acute Bronchitis (ED) Prescriptions: predniSONE 50 mg PO DAILY #5 tab Benzonatate [Tessalon Perles] 100 mg PO TID PRN #15 capsule PRN Reason: Cough Is patient prescribed a controlled substance at d/c from ED?: No Referrals: Ck Patel MD [Primary Care Provider] - 1-2 days Time of Disposition: 01:35
[2022-09-19] MEDS ORDERED: dexAMETHasone 2 MG TAB PO STA (01:30)
[2022-09-19] MEDS ORDERED: ACET/COD 300 MG/30 MG STARTER PACK 6 TAB BTL PO STA (01:31)
== END 2022-09-19 01:56 | disposition home or self-care (01) ==
LOC: EC 21:42
DX: J40 Bronchitis, not specified as acute or chronic (principal); Z86.718 Personal history of other venous thrombosis and embolism; I12.9 Hypertensive chronic kidney disease with stage 1 through stage 4 chronic kidney disease, or unspecified chronic kidney disease; N18.9 Chronic kidney disease, unspecified; F41.9 Anxiety disorder, unspecified; F32.A Depression, unspecified; F17.200 Nicotine dependence, unspecified, uncomplicated; Z79.899 Other long term (current) drug therapy
CPT/HCPCS: 71046; 99283; J8540

== ENCOUNTER 2022-09-25 21:07 | Emergency (ER) | payer OTHER ==
[2022-09-25 21:29] VITALS: BP 141/90; PULSE 91; RESP 16; TEMP 97.9
--- NOTE | 2022-09-25 22:21 | XR ---
EXAMINATION TYPE: XR chest 2V DATE OF EXAM: 09/25/2022 9:45 PM COMPARISON: Chest x-ray 09/18/2022 TECHNIQUE: XR chest 2V . CLINICAL INDICATION:Male, 51 years old with history of cough, congestion; FINDINGS: Lungs/Pleura: There is no evidence of pleural effusion, focal consolidation, or pneumothorax. Pulmonary vascularity: Unremarkable. Heart/mediastinum: Cardiomediastinal silhouette is unremarkable. Musculoskeletal: No acute osseous pathology. IMPRESSION: No acute cardiopulmonary disease/process.
--- NOTE | 2022-09-25 22:30 | ED ---
URI HPI - General Chief Complaint: Upper Respiratory Infection Stated Complaint: cough,congestion,rsv Time Seen by Provider: 09/25/22 22:20 Source: patient, RN notes reviewed Mode of arrival: ambulatory Limitations: no limitations - History of Present Illness Initial Comments: This is a pleasant 51-year-old male with a history of hypertension, renal dis ease, previous DVT. He presents to the restaurant today complaining of a dry cough, diminished appetite, fatigue, and body aches. Patient states she's been sick for about 2 weeks. Patient states he had RSV previously. Patient now states the cough seems like it was getting a little more harsh. No headache, no fever or chills, no changes in vision or hearing, no sore throat or difficulty with speech, no neck pain, no chest pain or shortness of breath, no abdominal pain, no nausea or vomiting, no changes in urination or bowel movements, no numbness or tingling, no extremity pain, no skin rashes or lesions. Past medical, surgical, social, and family history reviewed. MD Complaint: cough - Related Data Home Medications Medication Instructions Recorded Confirmed Metoprolol Succinate (ER) [Toprol 50 mg PO DAILY@1900 09/30/19 12/15/21 XL] Famotidine [Pepcid] 20 mg PO DAILY 01/04/20 12/15/21 amLODIPine [Norvasc] 10 mg PO DAILY@1900 01/04/20 12/15/21 Melatonin [Melatonin ER] 10 mg PO DAILY@1900 12/15/21 12/15/21 Previous Rx's Medication Instructions Recorded Benzonatate [Tessalon Perles] 100 mg PO TID PRN #15 capsule 09/19/22 predniSONE 50 mg PO DAILY #5 tab 09/19/22 Benzonatate [Tessalon Perles] 200 mg PO TID PRN #30 capsule 09/25/22 Allergies Allergy/AdvReac Type Severity Reaction Status Date / Time No Known Allergies Allergy Verified 09/25/22 21:26 Review of Systems ROS Statement: Those systems with pertinent positive or pertinent negative responses have been documented in the HPI. ROS Other: All systems not noted in ROS Statement are negative. Past Medical History Past Medical History: Deep Vein Thrombosis (DVT), Hypertension, Pneumonia, Renal Disease Additional Past Medical History / Comment(s): DVT R leg, congenital kidney defect with surgeries History of Any Multi-Drug Resistant Organisms: None Reported Past Surgical History: Cholecystectomy, Hernia Repair Additional Past Surgical History / Comment(s): KIDNEY SURGERY twice for congenital defect, 3 fatty tumors removed from trunk, bilateral inguinal hernia repairs Past Anesthesia/Blood Transfusion Reactions: Motion Sickness Past Psychological History: Anxiety, Depression Smoking Status: Current every day smoker Past Alcohol Use History: None Reported Past Drug Use History: None Reported - Past Family History Father Family Medical History: Congestive Heart Failure (CHF) Additional Family Medical History / Comment(s): Father of CHF at the age of 77yrs. Mother Family Medical History: No Reported History Additional Family Medical History / Comment(s): Pt states mother is healthy. General Exam - General Exam Comments Initial Comments: Vital signs stable, patient afebrile. SpO2 is normal. No evidence of res piratory distress. Adequate hydration. Limitations: no limitations General appearance: alert, in no apparent distress Head exam: Present: atraumatic, normocephalic, normal inspection Eye exam: Present: normal appearance, PERRL, EOMI. Absent: scleral icterus, conjunctival injection, periorbital swelling ENT exam: Present: normal exam, normal oropharynx, mucous membranes moist. Absent: mucous membranes dry Neck exam: Present: normal inspection, full ROM. Absent: tenderness, meningismus, lymphadenopathy Respiratory exam: Present: normal lung sounds bilaterally. Absent: respiratory distress, wheezes, rales, rhonchi, stridor, chest wall tenderness, accessory muscle use, decreased breath sounds, prolonged expiratory Cardiovascular Exam: Present: regular rate, normal rhythm, normal heart sounds. Absent: systolic murmur, diastolic murmur, rubs, gallop, clicks GI/Abdominal exam: Present: soft, normal bowel sounds. Absent: distended, tenderness, guarding, rebound, rigid Extremities exam: Present: normal inspection, full ROM, normal capillary refill. Absent: tenderness, pedal edema, joint swelling, calf tenderness Back exam: Present: normal inspection Neurological exam: Present: alert, oriented X3, CN II-XII intact Psychiatric exam: Present: normal affect, normal mood Skin exam: Present: warm, dry, intact, normal color. Absent: rash Course Vital Signs 09/25/22 21:26 Temperature 97.9 F Pulse Rate 91 Respiratory 16 Rate Blood Pressure 141/90 O2 Sat by Pulse 96 Oximetry Medical Decision Making - Medical Decision Making presents with symptomology consistent with mild viral bronchitis. Differential COVID-19, RSV, bacterial pneumonia, influenza. Does not appear to be consistent with cardiac disease. Patient turned out to be positive for COVID-19. Discussed quarantine measures in detail. Discussed masking. Patient voiced understanding. Patient in no distress at discharge. Patient was told to return to the ER for any signs or symptoms worsen. Told to return immediately if any other problems arise. All questions answered. Treatment plan discussed. Patient in agreement Every effort has been made to ensure accuracy of this dictation. However, due to the limitations of electronic medical records and dictation devices, errors in charting still occur. Paper Sales Representative Dr. Handley - Lab Data Lab Results 09/25/22 09/25/22 Range/Units 21:32 21:32 Coronavirus (PCR) Detected A (Not Detectd) Influenza Type A RNA Not Detected (Not Detectd) Influenza Type B (PCR) Not Detected (Not Detectd) - Radiology Data Radiology results: report reviewed, image reviewed Independent interpretation of chest x-ray by me reveals no evidence of acute findings. Reviewed radiology interpretation. Disposition Clinical Impression: COVID-19 Disposition: HOME SELF-CARE Condition: Good Instructions (If sedation given, give patient instructions): Coronavirus Disease 2019 (COVID-19) Additional Instructions: SELF QUARANTINE DISCHARGE: As you are at risk for symptoms due to coronavirus, please stay home and stay away from others as much as possible. Please maintain social distance of 6 feet if possible. You should not return to work until at least 3 days (72 hours) have passed since recovery of symptoms. This defined as resolution of fever without the use of fever reducing medicines and improvement in respiratory symptoms (e.g,, cough, shortness of breath) Isolation can end at least 5 days after symptom onset and after fever ends for 24 hours (without the use of fever-reducing medication) and symptoms are improving, if these people can continue to properly wear a well-fitted mask around others for 5 more days after the 5-day isolation period. If you're still having symptoms at the end of 5 day period, isolate for an additional 5 days. More information about what to do if you are sick can be found on the CDC website at https://www.cdc.gov/ coronavirus/2019-ncov/mj-ohh-fht-sick/iwmfy-dgbq-mqmv.html Expect the symptoms to last for 7-14 days from onset. Use acetaminophen (Tylenol) as needed for discomfort. You can take a maximum of 1 gram every 6 hours for discomfort, with your total dose in 24 hours not exceeding 4 grams. Be sure to maintain hydration. Drink continuous water and/or items high in vitamin C, such as orange juice and/or lemonade. Unless you have high blood pressure, you may consider Sudafed (which is [id number]) for nasal congestion. I would suggest that a short acting Sudafed rather than the 24 hour Sudafed. For a cough you may take Mucinex or Robitussin. Also consider the use of Vicks Vapor Rub or your chest when you sleep. Use a humidifier that is cleaned frequently, in the bedroom at night. For Nausea /Vomiting/Diarrhea associated with your Illness: o Small frequent sips of room temperature liquids. o Diet: [employer] - If you are still experiencing discomfort and/or [place] please slowly advancing your diet using the BRAT Diet = bananas, rice, apples/apple sauce, toast. o With diarrhea avoid any dairy for 48 hours after symptoms resolved. o Continue with activity as tolerated. If your symptoms do get worse and you believe that the upper respiratory infection has developed into something else, such as pneumonia or severe dehydration, please return to the emergency department or follow-up with your primary care. But expect to be symptomatic for the days as indicated above Prescriptions: Benzonatate [Tessalon Perles] 200 mg PO TID PRN #30 capsule PRN Reason: Cough Is patient prescribed a controlled substance at d/c from ED?: No Referrals: Ck Patel MD [Primary Care Provider] - 09/30/22 Time of Disposition: 22:30
== END 2022-09-25 22:35 | disposition home or self-care (01) ==
LOC: EC 21:07
DX: I10 Essential (primary) hypertension (principal); F41.9 Anxiety disorder, unspecified; F32.A Depression, unspecified; F17.200 Nicotine dependence, unspecified, uncomplicated; U07.1 COVID-19; Z79.899 Other long term (current) drug therapy
CPT/HCPCS: 71046; 87502; 87635; 99283

== ENCOUNTER 2023-06-17 13:47 | Emergency (ER) | payer OTHER ==
[2023-06-17 13:51] VITALS: TEMP 97.8
[2023-06-17] MEDS ORDERED: DEXAMETHASONE SOD PHOSPHATE 4 MG/ML 1 ML VIAL IVP STA (14:21)
[2023-06-17] MEDS ORDERED: KETOROLAC 15 MG/ML 1 ML VIAL IVP STA (14:21)
--- NOTE | 2023-06-17 14:49 | ED ---
General Adult HPI - General Chief complaint: Extremity Problem,Nontraumatic Stated complaint: inflamation and pain in right elbows Time Seen by Provider: 06/17/23 13:54 Source: patient, RN notes reviewed, old records reviewed Mode of arrival: ambulatory Limitations: no limitations - History of Present Illness Initial comments: Patient is a 52-year-old male who presents emergency Department complaining of right elbow pain and swelling without injury. Has been present for a few days. Located over the posterior aspect of the right elbow and seems to radiate down somewhat on the posterior aspect of the right arm. Denies any trauma. Pain with movement of the elbow. No fevers. No other acute complaints at this time. Presents for further evaluation at this time. No history of gout. Not on blood thinners. - Related Data Home Medications Medication Instructions Recorded Confirmed Metoprolol Succinate (ER) [Toprol 50 mg PO DAILY@0 09/30/19 12/15/21 XL] Famotidine [Pepcid] 20 mg PO DAILY 01/04/20 12/15/21 amLODIPine [Norvasc] 10 mg PO DAILY@0 01/04/20 12/15/21 Melatonin [Melatonin ER] 10 mg PO DAILY@1900 12/15/21 12/15/21 Previous Rx's Medication Instructions Recorded Benzonatate [Tessalon Perles] 100 mg PO TID PRN #15 capsule 09/19/22 predniSONE 50 mg PO DAILY #5 tab 09/19/22 Benzonatate [Tessalon Perles] 200 mg PO TID PRN #30 capsule 09/25/22 Albuterol Inhaler [Ventolin Hfa 1 - 2 puff INHALATION Q6H PRN #1 11/26/22 Inhaler] each Albuterol Inhaler [Ventolin Hfa 1 - 2 puff INHALATION Q6H PRN #1 11/26/22 Inhaler] each Albuterol Nebulized [Ventolin 2.5 mg INHALATION Q4H PRN #75 ml 11/26/22 Nebulized] Azithromycin [Zithromax Z Pack] 0 tab PO DIRECTED #6 tab 11/26/22 Azithromycin [Zithromax Z Pack] 0 tab PO DIRECTED #6 tab 11/26/22 predniSONE 50 mg PO DAILY #5 tab 11/26/22 predniSONE 50 mg PO DAILY #5 tab 11/26/22 Sulfamethox-Tmp 800-160Mg [Bactrim 1 tab PO Q12HR 7 Days #14 tab 06/17/23 DS 800-160 mg] Allergies Allergy/AdvReac Type Severity Reaction Status Date / Time No Known Allergies Allergy Verified 06/17/23 13:51 Review of Systems ROS Statement: Those systems with pertinent positive or pertinent negative responses have been documented in the HPI. Review of Systems: CONST: Denies fever EYES: Denies blurry vision ENT: Denies nasal congestion C/V: Denies Chest pain RESP: Denies shortness of breath GI: Denies abdominal pain : Denies dysuria SKIN: Denies rash. MSK: Endorses right elbow pain NEURO: Denies headache ROS Other: All systems not noted in ROS Statement are negative. Past Medical History Past Medical History: Deep Vein Thrombosis (DVT), Hypertension, Pneumonia, Renal Disease Additional Past Medical History / Comment(s): DVT R leg, congenital kidney defect with surgeries History of Any Multi-Drug Resistant Organisms: None Reported Past Surgical History: Cholecystectomy, Hernia Repair Additional Past Surgical History / Comment(s): KIDNEY SURGERY twice for congenital defect, 3 fatty tumors removed from trunk, bilateral inguinal hernia repairs Past Anesthesia/Blood Transfusion Reactions: Motion Sickness Past Psychological History: Anxiety, Depression Smoking Status: Current every day smoker Past Alcohol Use History: None Reported Past Drug Use History: None Reported - Past Family History Father Family Medical History: Congestive Heart Failure (CHF) Additional Family Medical History / Comment(s): Father of CHF at the age of 77yrs. Mother Family Medical History: No Reported History Additional Family Medical History / Comment(s): Pt states mother is healthy. General Exam - General Exam Comments Initial Comments: General: Appears in no acute distress. HEAD: Normal with no signs of head trauma. EYES: PERRLA, EOMI, conjunctiva normal, no discharge. ENT: Hearing grossly intact, normal oropharynx. RESPIRATORY: Clear breath sounds bilaterally. No wheezes, rales, or rhonchi. C/V: Regular rate and rhythm. S1 and S2 auscultated, no edema, peripheral pulses 2+ and intact throughout ABD: Abd is soft, nontender, nondistended EXT: Decreased range of motion of the right elbow secondary to pain. No obvious deformity. Some mild edema over the posterior aspect of the right elbow suspected bursitis with extension of the edema somewhat inferiorly along the posterior aspect of the right elbow. SKIN: No rashes or lesions observed on exposed skin. NEURO: Alert and oriented 4. Limitations: no limitations Course Vital Signs 06/17/23 06/17/23 13:48 17:07 Temperature 97.8 F Pulse Rate 82 70 Respiratory 16 18 Rate Blood Pressure 146/93 130/88 O2 Sat by Pulse 98 97 Oximetry Medical Decision Making - Medical Decision Making Was pt. sent in by a medical professional or institution (, PA, CARDIAC SONOGRAPHER, urgent care, hospital, or usp...) When possible be specific @ -No Did you speak to anyone other than the patient for history (EMS, parent, family, police, friend...)? What history was obtained from this source @ -No Did you review nursing and triage notes (agree or disagree)? Why? @ -I reviewed and agree with nursing and triage notes Were old charts reviewed (outside hosp., previous admission, EMS record, old EKG, old radiological studies, urgent care reports/EKG's, usp records)? Report findings @ -No old charts were reviewed Differential Diagnosis (chest pain, altered mental status, abdominal pain women, abdominal pain men, vaginal bleeding, weakness, fever, dyspnea, syncope, headache, dizziness, GI bleed, back pain, seizure, CVA, palpatations, mental health, musculoskeletal)? @ -Differential Musculoskeletal Muscular strain, contusion, ligament sprain, fracture, arthritis, septic arthritis, bursitis, cellulitis, muscle spasm, nerve compression, DVT, arterial occlusion, herpes zoster, electrolyte abnormality, tumor.... This is not meant to be in all inclusive list EKG interpreted by me (3pts min.). @ -None done X-rays interpreted by me (1pt min.). @ -Patient's right elbow x-ray reveals soft tissue swelling with no obvious bony traumatic injury. CT interpreted by me (1pt min.). @ -None done U/S interpreted by me (1pt. min.). @ -Right upper extremity DVT ultrasound negative for DVT. Right upper extremity ultrasound reveals edema. What testing was considered but not performed or refused? (CT, X-rays, U/S, labs)? Why? @ -None What meds were considered but not given or refused? Why? @ -None Did you discuss the management of the patient with other professionals (professionals i.e. , PA, CARDIAC SONOGRAPHER, lab, RT, psych nurse, social sciences professor, addictions therapist, teacher, development officer, shoe parts caser)? Give summary @ -No Was smoking cessation discussed for >3mins.? @ -No Was critical care preformed (if so, how long)? @ -No Were there social determinants of health that impacted care today? How? (Homelessness, low income, unemployed, alcoholism, drug addiction, transportation, low edu. Level, literacy, decrease access to med. care, prison, rehab)? @ -No Was there de-escalation of care discussed even if they declined (Discuss DNR or withdrawal of care, Hospice)? DNR status @ -No What co-morbidities impacted this encounter? (DM, HTN, Smoking, COPD, CAD, Cancer, CVA, ARF, Chemo, Hep., AIDS, mental health diagnosis, sleep apnea, morbid obesity)? @ -None Was patient admitted / discharged? Hospital course, mention meds given and route, prescriptions, significant lab abnormalities, going to OR and other pert inent info. @ -Based on the patient's presentation and physical exam, I believe patient may be expressing bursitis or other form of the elbow inflammation. We'll obtain basic labs, x-ray, ultrasound. Patient will be given IV Toradol as well as a dose of steroids for pain control. Patient was in agreement this plan. Vital signs within acceptable limits. No other symptoms. Patient's labs are within acceptable limits. Imaging shows soft tissue swelling but no obvious other injury at this time. Swelling could represent sialitis. I discussed this with the patient. He expressed understanding. We will treat for cellulitis with Bactrim. Recommended ice, relaxation and turn-[id number] analgesic medications for pain control. He was in agreement this plan. He will be given a dose of antibiotic prior to discharge. I will provide the patient with a prescription for Bactrim. I instructed the patient to follow up with their PCP in the next 1-3 days. I explained that the patient should return to the emergency department if they experience any worsening symptoms. Strict return precautions were discussed with the patient. The patient expressed understanding of these instructions. I answered all questions that the patient had. The patient was discharged home in good condition with their prescriptions and follow up information. Undiagnosed new problem with uncertain prognosis? @ -No Drug Therapy requiring intensive monitoring for toxicity (Heparin, Nitro, Insulin, Cardizem)? @ -No Were any procedures done? @ -No Diagnosis/symptom? @ -Right arm cellulitis Acute, or Chronic, or Acute on Chronic? @ -Acute Uncomplicated (without systemic symptoms) or Complicated (systemic symptoms)? @ -Uncomplicated Side effects of treatment? @ -none Exacerbation, Progression, or Severe Exacerbation] @ -no Poses a threat to life or bodily function? @ -no - Lab Data Result diagrams: 06/17/23 14:40 06/17/23 14:46 Lab Results 06/17/23 06/17/23 Range/Units 14:40 14:46 WBC 9.1 (3.8-10.6) k/uL RBC 4.83 (4.30-5.90) m/uL Hgb 15.6 (13.0-17.5) gm/dL Hct 46.3 (39.0-53.0) % MCV 95.8 (80.0-100.0) fL MCH 32.2 (25.0-35.0) pg MCHC 33.6 (31.0-37.0) g/dL RDW 13.6 (11.5-15.5) % Plt Count 229 (150-450) k/uL MPV 7.6 Neutrophils % 72 % Lymphocytes % 19 % Monocytes % 5 % Eosinophils % 3 % Basophils % 0 % Neutrophils # 6.6 (1.3-7.7) k/uL Lymphocytes # 1.7 (1.0-4.8) k/uL Monocytes # 0.4 (0-1.0) k/uL Eosinophils # 0.3 (0-0.7) k/uL Basophils # 0.0 (0-0.2) k/uL Sodium 140 (137-145) mmol/L Potassium 3.9 (3.5-5.1) mmol/L Chloride 108 H (98-107) mmol/L Carbon Dioxide 25 (22-30) mmol/L Anion Gap 7 mmol/L BUN 15 (9-20) mg/dL Creatinine 0.85 (0.66-1.25) mg/dL Est GFR (CKD-EPI)AfAm >90 (>60 ml/min/1.73 sqM) Est GFR (CKD-EPI)NonAf >90 (>60 ml/min/1.73 sqM) Glucose 104 H (74-99) mg/dL Calcium 8.8 (8.4-10.2) mg/dL Disposition Clinical Impression: Cellulitis Disposition: HOME SELF-CARE Condition: Good Instructions (If sedation given, give patient instructions): Cellulitis (ED) Prescriptions: Sulfamethox-Tmp 800-160Mg [Bactrim DS 800-160 mg] 1 tab PO Q12HR 7 Days #14 tab Is patient prescribed a controlled substance at d/c from ED?: No Referrals: Yanick Patel MD [Primary Care Provider] - 1-2 days Time of Disposition: 16:41
[2023-06-17 14:56] LABS: Basophils % (A) 0 %; Eosinophils # (A) 0.3 k/uL (0-0.7); Eosinophils % (A) 3 %; HCT 46.3 % (39.0-53.0); HGB 15.6 gm/dL (13.0-17.5); Lymphocytes # (A) 1.7 k/uL (1.0-4.8); Lymphocytes % (A) 19 %; MCH 32.2 pg (25.0-35.0); MCHC 33.6 g/dL (31.0-37.0); MCV 95.8 fL (80.0-100.0); Mean Platelet Volume 7.6; Monocytes # (A) 0.4 k/uL (0-1.0); Monocytes % (A) 5 %; Neutrophils # (A) 6.6 k/uL (1.3-7.7); Neutrophils % (A) 72 %; Platelet Count 229 k/uL (150-450); RBC 4.83 m/uL (4.30-5.90); RDW 13.6 % (11.5-15.5); WBC 9.1 k/uL (3.8-10.6)
--- NOTE | 2023-06-17 15:06 | XR ---
EXAMINATION TYPE: XR elbow complete RT DATE OF EXAM: 06/17/2023 3:02 PM INDICATION: Patient age:Male; 52 years old; Reason for study: pain; PHH. COMPARISON: None TECHNIQUE: The right elbow was examined in AP, lateral, and oblique projections. FINDINGS: No evidence of any acute osseous pathology, joint dislocation, or soft tissue swelling is n oted. No evidence of joint effusion is present. There is soft tissue swelling posterior to the elbow . IMPRESSION: Soft tissue swelling posterior to the elbow without evidence of fracture. Correlate for cellulitis.
[2023-06-17 15:12] LABS: African American GFR (CKD) >90 (>60 ml/min/1.73 sqM); Anion Gap 7 mmol/L; Blood Urea Nitrogen 15 mg/dL (9-20); Calcium 8.8 mg/dL (8.4-10.2); Carbon Dioxide 25 mmol/L (22-30); Chloride 108 mmol/L (98-107); Glucose 104 mg/dL (74-99); Non-African American GFR(CKD) >90 (>60 ml/min/1.73 sqM); Potassium 3.9 mmol/L (3.5-5.1); Sodium 140 mmol/L (137-145)
--- NOTE | 2023-06-17 15:46 | US ---
EXAMINATION TYPE: US venous doppler duplex UE RT DATE OF EXAM: 06/17/2023 COMPARISON: NONE CLINICAL INDICATION: Male, 52 years old with history of pain, swelling; Pain and redness to right elb ow x 4 days SIDE PERFORMED: Right Right Arm: Negative for DVT IMPRESSION: Grayscale, color doppler, spectral doppler imaging performed of the deep veins of the upper extremiti es. There is normal flow, compressibility and vascular waveforms.
--- NOTE | 2023-06-17 15:47 | US ---
EXAMINATION TYPE: US extremity nonvasc mass RT DATE OF EXAM: 06/17/2023 COMPARISON: Same day radiograph. CLINICAL INDICATION: Male, 52 years old with history of pain, swelling; Pain and redness to right elb ow x 4 days TECHNIQUE: Right lateral elbow with grayscale imaging. FINDINGS: Soft tissue edema in pt's area of redness, swelling, and pain right elbow IMPRESSION: Soft tissue swelling likely representing phlegmonous change, no organizing fluid collect ion. Correlate for cellulitis.
[2023-06-17] MEDS ORDERED: SULFAMETHOX-TMP 800-160MG 1 EACH TAB PO STA (16:47)
[2023-06-17 17:08] VITALS: BP 130/88; PULSE 70; RESP 18
== END 2023-06-17 17:08 | disposition home or self-care (01) ==
LOC: EC 13:47
DX: L03.113 Cellulitis of right upper limb (principal); I10 Essential (primary) hypertension; F17.200 Nicotine dependence, unspecified, uncomplicated; Z86.59 Personal history of other mental and behavioral disorders; Z79.899 Other long term (current) drug therapy
CPT/HCPCS: 36415; 80048; 85025; 73080; 76882; 93971; 99284; 96374; 96375; J1100; J1885

== ENCOUNTER 2023-07-03 15:49 | Observation (INO) | payer OTHER ==
[2023-07-03 17:24] LABS: Basophils % (A) 0 %; Eosinophils # (A) 0.3 k/uL (0-0.7); Eosinophils % (A) 3 %; HCT 50.1 % (39.0-53.0); HGB 16.2 gm/dL (13.0-17.5); Lymphocytes # (A) 2.2 k/uL (1.0-4.8); Lymphocytes % (A) 25 %; MCH 31.3 pg (25.0-35.0); MCHC 32.4 g/dL (31.0-37.0); MCV 96.7 fL (80.0-100.0); Mean Platelet Volume 7.9; Monocytes # (A) 0.3 k/uL (0-1.0); Monocytes % (A) 4 %; Neutrophils # (A) 5.6 k/uL (1.3-7.7); Neutrophils % (A) 66 %; Platelet Count 255 k/uL (150-450); RBC 5.18 m/uL (4.30-5.90); RDW 13.9 % (11.5-15.5); WBC 8.5 k/uL (3.8-10.6)
[2023-07-03 17:34] LABS: ALT 28 U/L (4-49); AST 36 U/L (17-59); African American GFR (CKD) >90 (>60 ml/min/1.73 sqM); Albumin 4.4 g/dL (3.5-5.0); Alkaline Phosphatase 90 U/L (38-126); Anion Gap 8 mmol/L; Blood Urea Nitrogen 15 mg/dL (9-20); Calcium 9.4 mg/dL (8.4-10.2); Carbon Dioxide 24 mmol/L (22-30); Chloride 109 mmol/L (98-107); Glucose 101 mg/dL (74-99); Magnesium 2.3 mg/dL (1.6-2.3); Non-African American GFR(CKD) >90 (>60 ml/min/1.73 sqM); Potassium 4.1 mmol/L (3.5-5.1); Sodium 141 mmol/L (137-145); Total Bilirubin 0.8 mg/dL (0.2-1.3); Total Protein 7.5 g/dL (6.3-8.2)
[2023-07-03 17:36] LABS: Partial Thromboplastin Time 25.7 sec (22.0-30.0); Prothrombin Time 10.5 sec (9.0-12.0)
--- NOTE | 2023-07-03 17:45 | ED ---
General Adult HPI - General Source: patient Mode of arrival: ambulatory Limitations: no limitations <Юлия Fowler - Last Filed: 07/03/23 17:41> - General Source: patient Mode of arrival: ambulatory Limitations: no limitations <Torin Monge - Last Filed: 07/03/23 19:15> - General Chief complaint: Chest Pain Stated complaint: Chest - History of Present Illness Initial comments: 52 year old male presents to the emergency department for chief complaint of left arm numbness x 1 week. He states that he feels that his arm is falling asleep. He states that this comes and goes and improves with movement of his hand. Denies chest pain, shortness of breath. (Юлия Fowler) Patient is a pleasant 52-year-old male presenting to the emergency Department with chest discomfort. Onset of symptoms was greater than a week ago. Patient has mild heaviness in his chest at times. Patient also has throbbing of his left arm that occurs more so than the chest discomfort. Patient also has some occasional dyspnea. No nausea. No diaphoresis. No history of similar symptoms previously. Currently patient is essentially symptom-free. (Torin Monge) - Related Data Home Medications Medication Instructions Recorded Confirmed Metoprolol Succinate (ER) [Toprol 50 mg PO DAILY@1200 09/30/19 07/03/23 XL] Famotidine [Pepcid] 20 mg PO HS 01/04/20 07/03/23 amLODIPine [Norvasc] 10 mg PO DAILY@1200 01/04/20 07/03/23 Atorvastatin [Lipitor] 20 mg PO DAILY@1200 07/03/23 07/03/23 Allergies Allergy/AdvReac Type Severity Reaction Status Date / Time No Known Allergies Allergy Verified 07/03/23 18:38 Review of Systems ROS Other: All systems not noted in ROS Statement are negative. <Юлия Fowler - Last Filed: 07/03/23 17:41> ROS Other: All systems not noted in ROS Statement are negative. Constitutional: Denies: fever Eyes: Denies: eye pain ENT: Denies: ear pain Respiratory: Reports: as per HPI, dyspnea Cardiovascular: Reports: as per HPI, chest pain Musculoskeletal: Denies: back pain <Torin Monge - Last Filed: 07/03/23 19:15> ROS Statement: Those systems with pertinent positive or pertinent negative responses have been documented in the HPI. Past Medical History Past Medical History: Deep Vein Thrombosis (DVT), Hypertension, Pneumonia, Renal Disease Additional Past Medical History / Comment(s): DVT R leg, congenital kidney defect with surgeries History of Any Multi-Drug Resistant Organisms: None Reported Past Surgical History: Cholecystectomy, Hernia Repair Additional Past Surgical History / Comment(s): KIDNEY SURGERY twice for congenital defect, 3 fatty tumors removed from trunk, bilateral inguinal hernia repairs Past Anesthesia/Blood Transfusion Reactions: Motion Sickness Past Psychological History: Anxiety, Depression Smoking Status: Current every day smoker Past Alcohol Use History: None Reported Past Drug Use History: None Reported - Past Family History Father Family Medical History: Congestive Heart Failure (CHF) Additional Family Medical History / Comment(s): Father of CHF at the age of 77yrs. Mother Family Medical History: No Reported History Additional Family Medical History / Comment(s): Pt states mother is healthy. <Юлия Fowler - Last Filed: 07/03/23 17:41> General Exam Limitations: no limitations <Юлия Fowler - Last Filed: 07/03/23 17:41> Limitations: no limitations General appearance: alert, in no apparent distress Eye exam: Present: normal appearance Neck exam: Present: normal inspection Respiratory exam: Present: normal lung sounds bilaterally. Absent: chest wall tenderness Cardiovascular Exam: Present: regular rate, normal rhythm, normal heart sounds Expanded Peripheral pulses: 2+: Radial (R), Radial (L), Dorsalis Pedis (R), Dorsalis Pedis (L) GI/Abdominal exam: Present: soft. Absent: tenderness Extremities exam: Present: normal inspection. Absent: pedal edema, calf tenderness Neurological exam: Present: alert Psychiatric exam: Present: normal affect, normal mood Skin exam: Present: normal color <Torin Monge - Last Filed: 07/03/23 19:15> - General Exam Comments Initial Comments: Visual Physical Exam Vital signs reviewed General: Well-appearing, nontoxic, no acute distress. Head: Normocephalic, atraumatic Eyes: PERRLA, EOMI ENT: Airway patent Chest: Nonlabored breathing Skin: No visual rash, normal skin tone Neuro: Alert and oriented 3 Musculoskeletal: No gross abnormalities (Юлия Fowler) Course Vital Signs 07/03/23 07/03/23 16:42 18:44 Temperature 98 F Pulse Rate 84 Pulse Rate [ 86 Pulse Oximetery ] Respiratory 20 Rate Blood Pressure 152/97 O2 Sat by Pulse 97 Oximetry EKG Findings - EKG Results: EKG: interpreted by ERMD (Left axis. Inferior Q waves. Incomplete right bundle-branch block.), sinus rhythm, normal ST/T <Torin Monge - Last Filed: 07/03/23 19:15> Medical Decision Making - Lab Data Result diagrams: 07/03/23 17:05 07/03/23 17:05 <Юлия Fowler - Last Filed: 07/03/23 17:41> - Lab Data Result diagrams: 07/03/23 17:05 07/03/23 17:05 <Torin Monge - Last Filed: 07/03/23 19:15> - Medical Decision Making I preformed the quick note portion of this chart. Electronically signed by Юлия Fowler PA-C (Юлия Fowler) Was pt. sent in by a medical professional or institution ([facility], APN, urgent care, hospital, or longterm...) When possible be specific @ -No Did you speak to anyone other than the patient for history (EMS, parent, family, police, friend...)? What history was obtained from this source @ -No Did you review nursing and triage notes (agree or disagree)? Why? @ -I reviewed and agree with nursing and triage notes Were old charts reviewed (outside hosp., previous admission, EMS record, old EKG, old radiological studies, urgent care reports/EKG's, longterm records)? Report findings @ -No old charts were reviewed Differential Diagnosis (chest pain, altered mental status, abdominal pain women, abdominal pain men, vaginal bleeding, weakness, fever, dyspnea, syncope, headache, dizziness, GI bleed, back pain, seizure, CVA, palpatations, mental health, musculoskeletal)? @ -Differential Chest Pain: Stable Angina, Unstable Angina, STEMI, NSTEMI Aortic Dissection, Pneumothorax, Musculoskeletal, Esophageal Spasm GERD, Cholecystitis, Pancreatitis, Zoster, th is is not meant to be an all-inclusive list. EKG interpreted by me (3pts min.). @ -As above X-rays interpreted by me (1pt min.). @ -Chest x-ray does not reveal acute process CT interpreted by me (1pt min.). @ -None done U/S interpreted by me (1pt. min.). @ -None done What testing was considered but not performed or refused? (CT, X-rays, U/S, labs)? Why? @ -None What meds were considered but not given or refused? Why? @ -None Did you discuss the management of the patient with other professionals (professionals i.e. DrHugo, PA, APN, lab, RT, psych nurse, social science instructor, water leak repairer, teacher, cash management officer, medical case manager)? Give summary @ -Case was discussed with sound physician, Dr. Haile will admit for Dr. Patel. Was smoking cessation discussed for >3mins.? @ -No Was critical care preformed (if so, how long)? @ -No Were there social determinants of health that impacted care today? How? (Homelessness, low income, unemployed, alcoholism, drug addiction, transportation, low edu. Level, literacy, decrease access to med. care, fci, rehab)? @ -No Was there de-escalation of care discussed even if they declined (Discuss DNR or withdrawal of care, Hospice)? DNR status @ -No What co-morbidities impacted this encounter? (DM, HTN, Smoking, COPD, CAD, Cancer, CVA, ARF, Chemo, Hep., AIDS, mental health diagnosis, sleep apnea, morbid obesity)? @ -None Was patient admitted / discharged? Hospital course, mention meds given and route, prescriptions, significant lab abnormalities, going to OR and other pertinent info. @ -Patient is updated on results and plan. Admission orders written. Card iology will be placed on consult. Undiagnosed new problem with uncertain prognosis? @ -No Drug Therapy requiring intensive monitoring for toxicity (Heparin, Nitro, Insulin, Cardizem)? @ -No Were any procedures done? @ -No Diagnosis/symptom? @ -Chest pain Acute, or Chronic, or Acute on Chronic? @ -Acute Uncomplicated (without systemic symptoms) or Complicated (systemic symptoms)? @ -default Side effects of treatment? @ -No Exacerbation, Progression, or Severe Exacerbation? @ -No Poses a threat to life or bodily function? How? (Chest pain, [place], VA, pneumonia, PE, COPD, DKA, ARF, appy, cholecystitis, CVA, Diverticulitis, Homicidal, Suicidal, threat to staff... and all critical care pts) @ -No (Torin Monge) - Lab Data Lab Results 07/03/23 07/03/23 07/03/23 Range/Units 17:05 17:05 17:05 WBC 8.5 (3.8-10.6) k/uL RBC 5.18 (4.30-5.90) m/uL Hgb 16.2 (13.0-17.5) gm/dL Hct 50.1 (39.0-53.0) % MCV 96.7 (80.0-100.0) fL MCH 31.3 (25.0-35.0) pg MCHC 32.4 (31.0-37.0) g/dL RDW 13.9 (11.5-15.5) % Plt Count 255 (150-450) k/uL MPV 7.9 Neutrophils % 66 % Lymphocytes % 25 % Monocytes % 4 % Eosinophils % 3 % Basophils % 0 % Neutrophils # 5.6 (1.3-7.7) k/uL Lymphocytes # 2.2 (1.0-4.8) k/uL Monocytes # 0.3 (0-1.0) k/uL Eosinophils # 0.3 (0-0.7) k/uL Basophils # 0.0 (0-0.2) k/uL PT 10.5 (9.0-12.0) sec INR 1.0 (<1.2) APTT 25.7 (22.0-30.0) sec Sodium 141 (137-145) mmol/L Potassium 4.1 (3.5-5.1) mmol/L Chloride 109 H (98-107) mmol/L Carbon Dioxide 24 (22-30) mmol/L Anion Gap 8 mmol/L BUN 15 (9-20) mg/dL Creatinine 0.85 (0.66-1.25) mg/dL Est GFR (CKD-EPI)AfAm >90 (>60 ml/min/1.73 sqM) Est GFR (CKD-EPI)NonAf >90 (>60 ml/min/1.73 sqM) Glucose 101 H (74-99) mg/dL Calcium 9.4 (8.4-10.2) mg/dL Magnesium 2.3 (1.6-2.3) mg/dL Total Bilirubin 0.8 (0.2-1.3) mg/dL AST 36 (17-59) U/L ALT 28 (4-49) U/L Alkaline Phosphatase 90 (38-126) U/L Troponin I (0.000-0.034) ng/mL Total Protein 7.5 (6.3-8.2) g/dL Albumin 4.4 (3.5-5.0) g/dL 07/03/23 Range/Units 17:05 WBC (3.8-10.6) k/uL RBC (4.30-5.90) m/uL Hgb (13.0-17.5) gm/dL Hct (39.0-53.0) % MCV (80.0-100.0) fL MCH (25.0-35.0) pg MCHC (31.0-37.0) g/dL RDW (11.5-15.5) % Plt Count (150-450) k/uL MPV Neutrophils % % Lymphocytes % % Monocytes % % Eosinophils % % Basophils % % Neutrophils # (1.3-7.7) k/uL Lymphocytes # (1.0-4.8) k/uL Monocytes # (0-1.0) k/uL Eosinophils # (0-0.7) k/uL Basophils # (0-0.2) k/uL PT (9.0-12.0) sec INR (<1.2) APTT (22.0-30.0) sec Sodium (137-145) mmol/L Potassium (3.5-5.1) mmol/L Chloride (98-107) mmol/L Carbon Dioxide (22-30) mmol/L Anion Gap mmol/L BUN (9-20) mg/dL Creatinine (0.66-1.25) mg/dL Est GFR (CKD-EPI)AfAm (>60 ml/min/1.73 sqM) Est GFR (CKD-EPI)NonAf (>60 ml/min/1.73 sqM) Glucose (74-99) mg/dL Calcium (8.4-10.2) mg/dL Magnesium (1.6-2.3) mg/dL Total Bilirubin (0.2-1.3) mg/dL AST (17-59) U/L ALT (4-49) U/L Alkaline Phosphatase (38-126) U/L Troponin I <0.012 (0.000-0.034) ng/mL Total Protein (6.3-8.2) g/dL Albumin (3.5-5.0) g/dL Disposition <Юлия Fowler - Last Filed: 07/03/23 17:41> Is patient prescribed a controlled substance at d/c from ED?: No Time of Disposition: 19:15 <Torin Monge - Last Filed: 07/03/23 19:15> Clinical Impression: Chest pain Disposition: ADMITTED IP TO THIS HOSP Referrals: Ck Patel MD [Primary Care Provider] - 1-2 days
--- NOTE | 2023-07-03 17:48 | XR ---
EXAMINATION TYPE: XR chest 2V DATE OF EXAM: 07/03/2023 5:38 PM CLINICAL INDICATION:Male, 52 years old with history of Chest Pain; [facility] COMPARISON: Chest radiographs from 11/26/2022 TECHNIQUE: XR chest 2V Frontal and lateral views of the chest. FINDINGS: Lungs/Pleura: There is flattening of the diaphragm with increased lucency of the lungs. No evidence o f pneumothorax, pleural effusion or focal consolidation. Pulmonary vascularity: Unremarkable. Heart/mediastinum: Cardiomediastinal silhouette is unremarkable. Musculoskeletal: No acute osseous pathology. IMPRESSION: 1. No acute cardiopulmonary disease process. 2. COPD changes.
[2023-07-03] MEDS ORDERED: NALOXONE 0.4 MG/ML 1 ML VIAL IV PRN (19:15)
[2023-07-03] MEDS ORDERED: NITROGLYCERIN SL TABS 0.4 MG TAB SUBLINGUAL PRN (19:17)
[2023-07-03] MEDS ORDERED: ASPIRIN 81 MG PO STA (19:17)
[2023-07-03] MEDS: NITROGLYCERIN OINT 1 INCH/GM PACKET TOPICAL SCH (19:25)
--- NOTE | 2023-07-03 21:12 | CT ---
EXAMINATION TYPE: CT angio chest CT DLP: 1073.3 mGycm, Automated exposure control for dose reduction was used. DATE OF EXAM: 07/03/2023 8:19 PM COMPARISON: 12/08/2021 CLINICAL INDICATION:Male, 52 years old with history of eval aorta; eval aorta TECHNIQUE/CONTRAST: CTA scan of the thorax is performed with IV Contrast, patient injected with 100ml mL of Isovue 370, M IP images are created and reviewed these are created on a separate workstation.. FINDINGS: Pulmonary Artery: There is no evidence for a filling defect within the pulmonary vasculature to sugge st acute pulmonary embolism. The pulmonary artery is of normal size. Lungs/Pleura: No evidence of focal consolidation, pleural effusion or pneumothorax. Airway: Large airways are patent. Heart: Heart is within normal limits for size. Vasculature: No evidence for intramural hematoma on noncontrast imaging. No evidence of intimal flap to suggest dissection. The aortic root measures up to 5.2 cm. Mediastinum: No gross evidence of adenopathy. Musculoskeletal: Mild degenerative disc disease changes are present throughout the thoracolumbar spin e. Soft Tissues: Unremarkable. Lower neck: No significant findings. Upper Abdomen: The gallbladder surgically absent. IMPRESSION: 1. Aortic root dilation up to 5.2 cm is seen on prior. 2. No evidence for acute aortic syndrome. No additional aneurysm, dissection or evidence for occlusi on. Visualized origins of the aortic arch and abdominal aorta appear patent.
[2023-07-04] MEDS: NITROGLYCERIN OINT 1 INCH/GM PACKET TOPICAL SCH ×3 (00:51→12:20)
--- NOTE | 2023-07-04 02:01 | P.HPIM ---
History of Present Illness H&P Date: 07/03/23 Patient is a 50-year-old male with a PMH of aortic dilatation (4.8 cm as per patient), hypertension, tobacco abuse, and hyperlipidemia who presents to the emergency room with complaints of chest discomfort. The patient reports that over the past 2-3 weeks, he experienced intermittent substernal chest tightness, rated at a 4 out of 10 on maximal intensity, lasting for a few minutes at a time and then resolving spontaneously. He denied experienced any associated shortness of breath, diaphoresis, dizziness, or palpitations. Denied nausea, vomiting. Does report that his left arm felt numb earlier today accompanying this chest discomfort which prompted him to seek further care. He reports f eeling at his baseline of the time of interview. Does report a family history of coronary artery disease with multiple first-degree relatives suffering MIs in their 50s. Has a 30+ pack year smoking history. In the emergency room, EKG revealed normal sinus rhythm at 77 bpm with an incomplete right bundle branch block and T-wave inversions in lead 3. Chest x- ray was unremarkable. A chest CTA was performed and revealed aortic root dilatation up to 5.2 cm. Laboratory evaluation was remarkable for troponin less than 0.012 with d-dimer 0.52. ED documentation reviewed and case discussed with ED provider. Review of systems: Pertinent positives and negatives as discussed in HPI, a complete review of systems was performed and all other systems are negative. Physical examination: Vital signs reviewed General: non toxic, no distress, appears at stated age, normal weight Derm: no unusual rashes/lesions, warm Head: atraumatic, normocephalic, symmetric Eyes: EOMI, no lid lag, anicteric sclera, pupils equal round reactive to light ENT: Nose and ears atraumatic Neck: No cervical lymphadenopathy, trachea midline, supple Mouth: no lip lesion, mucus membranes moist Cardiovascular: S1S2 reg, no murmur, positive dorsalis pedis pulse bilateral, no edema Lungs: CTA bilateral, no rhonchi, no rales, no accessory muscle use Abdominal: soft, nontender to palpation, no guarding Ext: muscle strength 5 out of 5 in all 4 extremities grossly, no gross muscle atrophy, no contractures, Neuro: CN II-XI grossly intact, no gross focal neuro deficits Psych: Alert, oriented, appropriate affect Assessment: Atypical chest pain Aortic root dilatation Chronic conditions: Hypertension, hyperlipidemia Imaging: EKG revealed normal sinus rhythm at 77 bpm with an incomplete right bundle branch block and T-wave inversions in lead 3. Chest x-ray was unremarkable. A chest CTA was performed and revealed aortic root dilatation up to 5.2 cm. Data Review: Laboratory evaluation was remarkable for troponin less than 0.012 with d-dimer 0.52. Plan: Cardiology consulted Cardiac monitoring Trend troponin Continue with aspirin and statin Echocardiogram ordered Patient reports he is following with vascular surgery as an outpatient for the dilatation DVT prophylaxis: Lovenox The patient is admitted with an anticipated less than 2 midnight stay for evaluation of chest pain CODE STATUS: Full Code Discussed with: Patient Anticipated discharge place: Home Past Medical History Past Medical History: Deep Vein Thrombosis (DVT), Hypertension, Pneumonia, Renal Disease Additional Past Medical History / Comment(s): DVT R leg, congenital kidney defect with surgeries History of Any Multi-Drug Resistant Organisms: None Reported Past Surgical History: Cholecystectomy, Hernia Repair Additional Past Surgical History / Comment(s): KIDNEY SURGERY twice for congenital defect, 3 fatty tumors removed from trunk, bilateral inguinal hernia repairs Past Anesthesia/Blood Transfusion Reactions: Motion Sickness Past Psychological History: Anxiety, Depression Smoking Status: Current every day smoker Past Alcohol Use History: None Reported Past Drug Use History: None Reported - Past Family History Father Family Medical History: Congestive Heart Failure (CHF) Additional Family Medical History / Comment(s): Father of CHF at the age of 77yrs. Mother Family Medical History: Coronary Artery Disease (CAD) Additional Family Medical History / Comment(s): Pt states mother is healthy. Medications and Allergies Home Medications Medication Instructions Recorded Confirmed Type Metoprolol Succinate (ER) [Toprol 50 mg PO DAILY@1200 09/30/19 07/03/23 History XL] Famotidine [Pepcid] 20 mg PO HS 01/04/20 07/03/23 History amLODIPine [Norvasc] 10 mg PO DAILY@1200 01/04/20 07/03/23 History Atorvastatin [Lipitor] 20 mg PO DAILY@1200 07/03/23 07/03/23 History Allergies Allergy/AdvReac Type Severity Reaction Status Date / Time No Known Allergies Allergy Verified 07/03/23 18:38 Physical Exam Vitals: Vital Signs Temp Pulse Pulse Resp BP Pulse Ox 07/03/23 21:00 60 19 113/83 95 07/03/23 20:00 70 20 117/82 97 07/03/23 19:18 68 16 117/82 98 07/03/23 18:44 86 07/03/23 16:42 98 F 84 20 152/97 97 Intake and Output 07/03/23 07/03/23 07/03/23 06:59 14:59 22:59 Other: Weight 104.326 kg Results CBC & Chem 7: 07/03/23 17:05 07/03/23 17:05 Labs: Abnormal Lab Results - Last 24 Hours (Table) 07/03/23 Range/Units 17:05 Chloride 109 H (98-107) mmol/L Glucose 101 H (74-99) mg/dL
[2023-07-04] MEDS ORDERED: ENOXAPARIN 40 MG/0.4 ML SYRINGE SQ SCH (09:00)
[2023-07-04] MEDS ORDERED: ASPIRIN 325 MG TAB PO SCH (09:00)
[2023-07-04] MEDS ORDERED: ASPIRIN 81 MG PO SCH (09:01)
[2023-07-04 09:50] LABS: LDL Cholesterol,Calculated 77.4 mg/dL (0.0-131.0)
--- NOTE | 2023-07-04 10:46 | P.PN ---
Subjective Progress Note Date: 07/04/23 Hospital course: Patient is a very pleasant 52-year-old male with a past medical history hypertension, hyperlipidemia, congenital kidney defect status post surgical repair, aortic root dilation follows outpatient for yearly monitoring, anxiety, and nicotine dependence. He presented to the emergency department on 07/03/23 with a chief complaint of chest pain/pressure as well as shooting pains, tingling, and intermittent numbness of left arm. He underwent full evaluation in the emergency department. EKG completed showing normal sinus rhythm at 77 bpm with T-wave inversion in inferior lead 3 otherwise showing no significant T- wave or ST abnormalities showing no signs of acute ischemia. Chest x-ray revealing changes of COPD with flattening of the diaphragm and increased lucency of lungs but negative for acute cardiopulmonary process. CTA showing aortic root dilation up to 5.2 cm similar to previous scan completed 12/08/21 and otherwise unchanged. Labs were completed and reviewed. CBC, coagulation profile, and d-dimer were unremarkable. BMP showing mild hyperchloremia with chloride of 109 and slightly elevated glucose of 101 otherwise normal findings. Liver profile unremarkable. Troponin was negative at less than 0.012. Patient was admitted under our services with consultation to cardiology. Troponins trended overnight all negative at less than 0.0123 draws. Lipid profile showing elevated triglycerides of 262, VLDL of 52.4 and HDL of 38.2. Cardiology evaluated recommending stress echo. CT cervical spine showing mild degenerative changes with mild bony neural foraminal encroachment at C5 through C6 level. CT thoracic spine negative for acute process. Order was placed for consult to orthospine for evaluation secondary to patient's reports of shooting pains and tingling in left arm with intermittent numbness. Physical exam: Vital signs reviewed and stable. General: Nontoxic, no distress and appears stated age. Derm: Skin warm and dry, normal coloration for ethnicity. Head: Atraumatic, normocephalic and symmetric. Eyes: EOMs intact, no lid lag, and anicteric sclera Mouth: no lip lesions, mucus membranes moist Cardiovascular: regular rate and rhythm with normal S1S2, no murmur, positive posterior tibial pulses bilaterally, and cap refill < 2 seconds. Lungs: Respirations even, regular, and unlabored on room air. Lungs CTA bilater ally, no rhonchi, no rales, no wheezing, and no accessory muscle usage. Abdominal: soft, nontender to palpation, no guarding, no appreciable organomegaly Ext: ROM intact. No gross muscle atrophy, no edema, no contractures Neuro: Speech clear, face symmetrical and CN II-XII grossly intact with no noted focal neuro deficits Psych: Alert and oriented to person, place, time, and situation. Appropriate and pleasant affect. Assessment and Plan of Care: Chest pain, atypical, acute coronary event ruled out. Hypertension Hyperlipidemia -Cardiology following, ordered for stress echo to be completed. -Telemetry monitoring -Troponins were trended overnight and reviewed all negative at less than 0.0123 draws. -Cardiac diet, NPO at midnight -Continue daily Aspirin 81 mg, atorvastatin 20 mg daily, and metoprolol 50 mg daily -Lipid profile showing elevated triglycerides of 262, VLDL of 52.4, and HDL of 38.2. -Echocardiogram to be completed Left arm paresthesias with reports of shooting pain/tingling and intermittent numbness -CT cervical spine ordered and upon following up with results, radiology report showing mild degenerative changes with mild bony neural foraminal encroachment at C5 through C6 level. CT thoracic spine negative for acute process. -Order was placed for consult to orthospine for evaluation secondary to patient's reports of shooting pains and tingling in left arm with intermittent numbness. COPD with continued Nicotine dependence -Recommend smoking cessation. Order placed for nicotine patch 21 mg daily as well as Nicorette gum every 2 hours as needed for nicotine cravings. CODE STATUS: Full code DVT prophylaxis: Lovenox Discussed with: Patient and RN Anticipated discharge date: 24-[address]: Home Patient was seen independently by Nurse Pracitioner. This document was prepared using [employer] dictation software. Please allow for er rors in rn anesthetist, while rare they do occur. I reviewed the documentation as provided by the DEISY above, who is the original author of this note. I agree with the documented assessment and plan, with the following changes: none Objective - Vital Signs Vital signs: Vital Signs Temp 98 F 07/03/23 16:42 Pulse 67 07/04/23 07:39 Resp 18 07/04/23 07:39 BP 128/82 07/04/23 07:39 Pulse Ox 94 L 07/04/23 07:39 FiO2 Intake & Output 07/03/23 07/04/23 07/04/23 18:59 06:59 18:59 Weight 104.326 kg - Labs CBC & Chem 7: 07/03/23 17:05 07/03/23 17:05 Labs: Abnormal Lab Results - Last 24 Hours (Table) 07/03/23 Range/Units 17:05 Chloride 109 H (98-107) mmol/L Glucose 101 H (74-99) mg/dL
--- NOTE | 2023-07-04 11:39 | P.CRDCN ---
History of Present Illness Consult date: 07/04/23 Consult reason: chest pain History of present illness: History of present illness: This is a 52-year-old male patient does not follow with a [employer] consultant, past medical history of dilated aortic root, hypertension, hyperlipidemia, gastroesophageal reflux disease, active tobacco use, family history of premature coronary artery disease in his father. We have been asked to evaluate the patient for chest pain. Patient states he came in the hospital due to numbness of his left arm that's been going on for 2-3 weeks. He states he has occasional discomfort in his chest with coughing. He feels that his left arm numbness is coming from his shoulder. He does complain of lumbar back pain. He denies having cervical pain. He currently does not have chest pain and he does not have numbness in the arm. The numbness in the arm is positional. Regarding the dilated aortic root, patient states he did have a stress test at some point but does not remember any detail. He is actively smoking and cut down to half a pack per day previously 1-1-1/2 packs per day since he was a teenager. He drinks alcohol rarely. His father had a three-vessel CABG in his 50s or 60s. Regarding dilated aortic root, patient had CTA of the chest also in November 2021 which revealed a 4.8 cm dilation and also in 2018 at 4.9 cm. See BLAKE and echocardiogram below. Patient was evaluated by Dr. Adrian, cardiothoracic surgery, in 2016 with recommendations for medical management. EKG sinus rhythm no acute ST changes Chest x-ray: Chest x-ray no acute process. COPD changes CTA of the chest revealed aortic root dilation up to 5.2 cm. No evidence of acute aortic syndrome. No aneurysm, dissection or evidence of occlusion. Visualized origins of the aortic arch and abdominal aorta appeared patent. CBC normal. D-dimer 0.52. INR 1. Troponin negative 3. Potassium 4.1, creatinine 0.85, blood sugar 101. Liver function tests are normal. Triglycerides 262, cholesterol 168, LDL 77, HDL 38. Home cardiac medications: Amlodipine 10 mg daily at noon, Toprol-XL 50 mg daily at noon, Lipitor 20 mg daily at noon. BLAKE 04/14/2017 revealed dilated aortic root at the sinus of Valsalva and measures 4.8 cm. No evidence of dissection. Ascending aorta as well as descending thoracic aorta are normal. Aortic valve morphology is normal, tricuspid, aortic leaflets thin. No evidence of aortic regurgitation. Mitral and tricuspid valve morphology is normal. No evidence of PFO. Echocardiogram 12/2021 revealed EF of 55-60% with moderate concentric left ventricular hypertrophy, trace mitral regurgitation, trace tricuspid regurgitation, aortic root moderately dilated. Aortic root 4.8 cm. Review Of Systems: At the time of my evaluation: Constitutional: No fever, no chills. No weakness, fatigue or lethargy. EENT: No headache. No dizziness. Lungs: No shortness of breath, cough, no sputum production. No wheezing. Cardiovascular: No chest pain, no lower extremity edema. No palpitations. No paroxysmal nocturnal dyspnea. No orthopnea. No lightheadedness or dizziness. No syncopal episodes. Abdominal: No abdominal pain. No nausea, vomiting. No diarrhea. No constipation. No bloody or tarry stools. Genitourinary: No dysuria.. No urinary retention. Musculoskeletal: No myalgias. No muscle weakness, no frequent falls. No back pain. No neck pain. Integumentary: No wounds. No rash. No unusual bruising. Neurologic: No aphasia. No facial droop. No change in mentation. No head injury. No headache. Physical examination: Gen: This is a 52 year old male. He is resting on ER stretcher and appears to be comfortable. VS: reviewed, blood pressure 123/72, heart rate in the 60s, pulse ox 94% on room air and afebrile HEENT: Head is atraumatic, normocephalic. Pupils equal, round. Sclerae is anicteric. NECK: Supple. No JVD. LUNGS: Coarse breath sounds. No intercostal retractions. HEART: Regular rate and rhythm. No murmur. ABDOMEN: Soft No tenderness. EXTREMITIES: No pedal edema. No calf tenderness. NEUROLOGICAL: Patient is awake, alert and oriented x3. Assessment: Chest pain, acute coronary syndrome ruled out Numbness left arm appears to be musculoskeletal related History of dilated aortic root Hypertension Hyperlipidemia Gastroesophageal reflux disease Active tobacco use and dependence Family history of premature coronary artery disease Obstructive sleep apnea Plan: Resume home cardiac medications Obtain stress echocardiogram Obtain 2-D echocardiogram and Doppler study to assess cardiac structure and function Smoking cessation If stress and echocardiogram unremarkable, patient is cleared for discharge may follow-up in the office with Dr. Hebert in 1-2 weeks. Thank you kindly for this consultation. Nurse practitioner note has been reviewed, I agree with documented findings and plan of care. Patient was seen and examined. Past Medical History Past Medical History: Deep Vein Thrombosis (DVT), Hypertension, Pneumonia, Renal Disease Additional Past Medical History / Comment(s): DVT R leg, congenital kidney defect with surgeries History of Any Multi-Drug Resistant Organisms: None Reported Past Surgical History: Cholecystectomy, Hernia Repair Additional Past Surgical History / Comment(s): KIDNEY SURGERY twice for congenital defect, 3 fatty tumors removed from trunk, bilateral inguinal hernia repairs Past Anesthesia/Blood Transfusion Reactions: Motion Sickness Past Psychological History: Anxiety, Depression Smoking Status: Current every day smoker Past Alcohol Use History: None Reported Past Drug Use History: None Reported - Past Family History Father Family Medical History: Congestive Heart Failure (CHF) Additional Family Medical History / Comment(s): Father of CHF at the age of 77yrs. Mother Family Medical History: Coronary Artery Disease (CAD) Additional Family Medical History / Comment(s): Pt states mother is healthy. Medications and Allergies Home Medications Medication Instructions Recorded Confirmed Type Metoprolol Succinate (ER) [Toprol 50 mg PO DAILY@1200 09/30/19 07/03/23 History XL] Famotidine [Pepcid] 20 mg PO HS 01/04/20 07/03/23 History amLODIPine [Norvasc] 10 mg PO DAILY@1200 01/04/20 07/03/23 History Atorvastatin [Lipitor] 20 mg PO DAILY@1200 07/03/23 07/03/23 History Allergies Allergy/AdvReac Type Severity Reaction Status Date / Time No Known Allergies Allergy Verified 07/03/23 18:38 Physical Exam Vitals: Vital Signs Temp Pulse Pulse Resp BP Pulse Ox 07/04/23 07:39 67 18 128/82 94 L 07/04/23 06:48 64 18 129/84 96 07/04/23 00:10 63 115/68 95 07/04/23 00:00 63 18 112/72 96 07/03/23 23:00 63 16 124/99 96 07/03/23 22:00 62 18 113/83 95 07/03/23 21:00 60 19 113/83 95 07/03/23 20:00 70 20 117/82 97 07/03/23 19:18 68 16 117/82 98 07/03/23 18:44 86 07/03/23 16:42 98 F 84 20 152/97 97 Intake and Output 07/03/23 07/04/23 07/04/23 22:59 06:59 14:59 Other: Weight 104.326 kg Results 07/03/23 17:05 07/03/23 17:05 Cardiac Enzymes 07/03/23 07/03/23 07/03/23 Range/Units 17:05 17:05 19:34 AST 36 (17-59) U/L Troponin I <0.012 <0.012 (0.000-0.034) ng/mL 07/03/23 Range/Units 23:01 AST (17-59) U/L Troponin I <0.012 (0.000-0.034) ng/mL Coagulation 07/03/23 Range/Units 17:05 PT 10.5 (9.0-12.0) sec APTT 25.7 (22.0-30.0) sec CBC 07/03/23 Range/Units 17:05 WBC 8.5 (3.8-10.6) k/uL RBC 5.18 (4.30-5.90) m/uL Hgb 16.2 (13.0-17.5) gm/dL Hct 50.1 (39.0-53.0) % Plt Count 255 (150-450) k/uL Comprehensive Metabolic Panel 07/03/23 Range/Units 17:05 Sodium 141 (137-145) mmol/L Potassium 4.1 (3.5-5.1) mmol/L Chloride 109 H (98-107) mmol/L Carbon Dioxide 24 (22-30) mmol/L BUN 15 (9-20) mg/dL Creatinine 0.85 (0.66-1.25) mg/dL Glucose 101 H (74-99) mg/dL Calcium 9.4 (8.4-10.2) mg/dL AST 36 (17-59) U/L ALT 28 (4-49) U/L Alkaline Phosphatase 90 (38-126) U/L Total Protein 7.5 (6.3-8.2) g/dL Albumin 4.4 (3.5-5.0) g/dL Current Medications Generic Name Dose Route Start Last Admin Trade Name Freq PRN Reason Stop Dose Admin Amlodipine Besylate 10 mg 07/04/23 12:00 Amlodipine 10 Mg Tab PO DAILY@1200 [facility] Aspirin 81 mg 07/04/23 09:01 Aspirin 81 Mg PO DAILY [facility] Atorvastatin Calcium 20 mg 07/04/23 12:00 Atorvastatin 20 Mg Tab PO DAILY@1200 [facility] Enoxaparin Sodium 40 mg 07/04/23 09:00 Enoxaparin 40 Mg/0.4 Ml Syringe SQ DAILY [facility] Famotidine 20 mg 07/04/23 21:00 Famotidine 20 Mg Tab PO HS [facility] Metoprolol Succinate 50 mg 07/04/23 12:00 Metoprolol Succinate (Er) 50 Mg Tab.Er.24h PO DAILY@1200 [facility] Naloxone HCl 0.2 mg 07/03/23 19:15 Naloxone 0.4 Mg/Ml 1 Ml Vial IV Q2M PRN Opioid Reversal Nitroglycerin 0.4 mg 07/03/23 19:17 Nitroglycerin Sl Tabs 0.4 Mg Tab SUBLINGUAL Q5M PRN Chest Pain Nitroglycerin 1 inch 07/03/23 19:30 07/04/23 06:48 Nitroglycerin Oint 1 Inch/Gm Packet TOPICAL Not Given Q6HR [facility] Intake and Output 07/03/23 07/04/23 07/04/23 22:59 06:59 14:59 Other: Weight 104.326 kg 07/03/23 17:05 07/03/23 17:05
[2023-07-04] MEDS ORDERED: ATORVASTATIN 20 MG TAB PO SCH (12:00)
[2023-07-04] MEDS ORDERED: amLODIPine 10 MG TAB PO SCH (12:00)
[2023-07-04] MEDS ORDERED: METOPROLOL SUCCINATE (ER) 50 MG TAB.ER.24H PO SCH (12:00)
--- NOTE | 2023-07-04 12:00 | CA ---
Stress Echo Report Rodger Welch Age: 52 Gender: M : 1970 Exam Date: 07/04/2023 11:07 Exam Location: [facility] Ht (in): 70 Wt (lb): 230 Ordering Physician: Kala Sanchez Referring Physician: [id number] Lehr Cutter: Denise Zavaleta RDCS Technologist Procedure CPT: Indication: CP ICD-9 Codes: Rhythm: Patient History: CHEST PAIN, HTN, NUMBNESS IN FACE/NECK, ELEVATED CHOLESTEROL LEVELS, FAMILY HX OF HEART DISEASE, CURRENT SMOKER, 1.5 PPD X SEVERAL YEARS Cardiac Medications: Medications in past 24 hours: Contrast: Stress Results Protocol: Johnny Total dose(mL): Exercise Duration (min:sec): Max ST Depression (mm): Angina Score: Whiting Score: METS: 12.1 Resting HR: 78 Resting BP: 134 / 65 Peak HR: 145 Peak BP: 187 / 77 Max Predicted HR: 168 86 % Max Predicted HR Target HR: 143 Double Product: 34148 Stress Summary: BP Response: Reason for Termination: PT REACHED TARGET/MAX EXERTION Cardiac Symptoms: ECG Analysis Resting ECG: Stress ECG: Arrhythmia: Echo Analysis Resting Echo: Peak Echo Analysis: MEASUREMENTS (Male/Female) Normal Values CONCLUSIONS Patient underwent exercise stress echo with a Johnny protocol treadmill stress test. Patient exercised into Stage 3 for a total of 11 minutes and 21 seconds reaching a total of 12.1 METS. Patient's maximum heart rate was 145 which represented 86 % age-predicted maximum heart rate. Stress EKG portion: At baseline patient's EKG showed normal sinus rhythm, normal axis, no significant ST or T wave abnormalities. At peak exercise, EKG showed no significant change from baseline. Stress echo portion: 2-D echocardiogram was performed in the parasternal long, personal short, apical 2 and apical four-chamber views at rest, peak exercise and in recovery. At baseline, echocardiogram showed left ventricular ejection fraction 55% without wall motion abnormalities. With peak exercise, echocardiogram shows improvement in left ventricular ejection fraction, increase contractility, decrease in left ventricular end systolic dimension without wall motion abnormalities consistent with a normal response to exercise. Conclusions: 1. Normal EKG and echo response to exercise without evidence of inducible ischemia. 2. Excellent exercise capacity. Dr. Ihsan Hebert DO (Electronically Signed) Final Date: 04 July 2023 11:59
--- NOTE | 2023-07-04 12:16 | CT ---
EXAMINATION TYPE: CT CervThoracic spine wo con DATE OF EXAM: 07/04/2023 COMPARISON: None HISTORY: left arm shooting pain and intermittent numbness CT DLP: 2089.5 mGycm Automated exposure control for dose reduction was used. FINDINGS: CT cervical spine: Cervical vertebral segments are normal in height and alignment. The craniovertebral junction relation ships and prevertebral soft tissues are normal. There is moderate degenerative disease with moderate disc space narrowing and spondylosis at the C5-6 and C6-7 levels. There is no bony encroachment of the cervical canal. There is mild bony encroachmen t of the neural foramina C5-6 bilaterally, left slightly greater than right. CT thoracic spine The thoracic vertebral segments are normal in height and alignment and there is no fracture subluxati on There is no significant degenerative disc disease. The bony thoracic spinal canal is normal. The neur oforamina are patent. The paraspinal soft tissues are unremarkable. IMPRESSION: 1. Mild degenerative disc disease in lower cervical spine with mild bony neural foraminal encroachmen t at C5-6 bilaterall 2. No significant abnormality in the thoracic spine.
[2023-07-04] MEDS ORDERED: NICOTINE GUM (POLACRILEX) 2 MG GUM BUCCAL PRN (14:04)
[2023-07-04] MEDS ORDERED: NICOTINE 21MG/24HR PATCH TRANSDERM SCH (14:15)
[2023-07-04] MEDS ORDERED: ORPHENADRINE 30 MG/ML 2 ML VIAL IVP STA (14:21)
[2023-07-04] MEDS ORDERED: HYDROcodone/APAP 5-325MG 1 EACH TAB PO PRN (14:21)
[2023-07-04] MEDS ORDERED: KETOROLAC 15 MG/ML 1 ML VIAL IVP STA (14:21)
--- NOTE | 2023-07-04 15:05 | P.DS ---
Providers Date of admission: 07/03/23 19:16 Expected date of discharge: 07/04/23 Attending physician: Daysi Garrido MD Consults: 07/03/23 19:15 Consult Physician Urgent Consulting Provider: Wilbur Chairez Consult Reason/Comments: cp Do you want consulting provider notified?: Yes 07/04/23 13:50 Consult Physician Routine Consulting Provider: Azar Hu Consult Reason/Comments: left arm shooting pain, tingling and intermittent numbness CT showing C5-C6 Do you want consulting provider notified?: Yes Primary care physician: Ck Jay [place] Hospital Course: Discharge Diagnosis: Chest pain, acute coronary event ruled out. Hypertension Hyperlipidemia Left arm paresthesias with reports of shooting pain/tingling and intermittent numbness COPD with continued Nicotine dependence Aortic root dilation, previously known CT showing aortic root dilation of up to 5.2 cm which was similar to previous scan completed on 12/08/21 per radiology report. Recommend outpatient follow-up with vascular surgeon for continued monitoring and smoking cessation. Hospital Course: Patient is a very pleasant 52-year-old male with a past medical history hypertension, hyperlipidemia, congenital kidney defect status post surgical repair, aortic root dilation follows outpatient for yearly monitoring, anxiety, and nicotine dependence. He presented to the emergency department on 07/03/23 with a chief complaint of chest pain/pressure as well as shooting pains, tingling, and intermittent numbness of left arm. He underwent full evaluation in the emergency department. EKG completed showing normal sinus rhythm at 77 bpm with T-wave inversion in inferior lead 3 otherwise showing no significant T- wave or ST abnormalities showing no signs of acute ischemia. Chest x-ray revealing changes of COPD with flattening of the diaphragm and increased lucency of lungs but negative for acute cardiopulmonary process. CTA showing aortic root dilation up to 5.2 cm similar to previous scan completed 12/08/21 and otherwise unchanged. Labs were completed and reviewed. CBC, coagulation profile, and d-dimer were unremarkable. BMP showing mild hyperchloremia with chloride of 109 and slightly elevated glucose of 101 otherwise normal findings. Liver profile unremarkable. Troponin was negative at less than 0.012. Patient was admitted under our services with consultation to cardiology. Troponins trended overnight all negative at less than 0.0123 draws. Lipid profile showing elevated triglycerides of 262, VLDL of 52.4 and HDL of 38.2. Cardiology evaluated recommending stress echo. CT cervical spine showing mild degenerative changes with mild bony neural foraminal encroachment at C5 through C6 level. CT thoracic spine negative for acute process. Order was placed for consult to orthospine for evaluation secondary to patient's reports of shooting pains and tingling in left arm with intermittent numbness. Patient underwent stress testing with cardiology which revealed normal EKG and echo response to exercise without evidence of inducible ischemia in excellent exercise capacity. Echocardiogram completed. Patient was very adamant about leaving and declining evaluation by orthospine surgery team. Patient states he'll follow up outpatien t with orthopedic surgery, cardiology was contacted stating patient may be cleared for discharge and follow-up outpatient in the office for the echocardiogram results. Physical exam: Vital signs reviewed and stable. General: Nontoxic, no distress and appears stated age. Derm: Skin warm and dry, normal coloration for ethnicity. Head: Atraumatic, normocephalic and symmetric. Eyes: EOMs intact, no lid lag, and anicteric sclera Mouth: no lip lesions, mucus membranes moist Cardiovascular: regular rate and rhythm with normal S1S2, no murmur, positive posterior tibial pulses bilaterally, and cap refill < 2 seconds. Lungs: Respirations even, regular, and unlabored on room air. Lungs CTA bilaterally, no rhonchi, no rales, no wheezing, and no accessory muscle usage. Abdominal: soft, nontender to palpation, no guarding, no appreciable organomegaly Ext: ROM intact. No gross muscle atrophy, no edema, no contractures Neuro: Speech clear, face symmetrical and CN II-XII grossly intact with no noted focal neuro deficits Psych: Alert and oriented to person, place, time, and situation. Appropriate and pleasant affect. A total of 33 minutes of time were spent preparing this complex discharge summary. Pt was discharged on 07/04/23 at 2:54 PM Patient was seen independently by Nurse Practitioner. This document was prepared using [employer] dictation software. Please allow for errors in pan pusher while rare they do occur. I reviewed the documentation as provided by the DEISY above, who is the original author of this note. I agree with the documented assessment and plan, with the following changes: none Patient Condition at Discharge: Stable Plan - Discharge Summary New Discharge Prescriptions: Continue Metoprolol Succinate (ER) [Toprol XL] 50 mg PO DAILY@1200 amLODIPine [Norvasc] 10 mg PO DAILY@1200 Famotidine [Pepcid] 20 mg PO HS Atorvastatin [Lipitor] 20 mg PO DAILY@1200 Discharge Medication List Metoprolol Succinate (ER) [Toprol XL] 50 mg PO DAILY@1200 09/30/19 [History] Famotidine [Pepcid] 20 mg PO HS 01/04/20 [History] amLODIPine [Norvasc] 10 mg PO DAILY@1200 01/04/20 [History] Atorvastatin [Lipitor] 20 mg PO DAILY@1200 07/03/23 [History] Follow up Appointment(s)/Referral(s): Azar Hu DO [Doctor of Osteopathic Medicine] - 1 Week Ihsan Hebert DO [STAFF PHYSICIAN] - 07/14/23 10:15 am Ck Patel MD [Primary Care Provider] - 1-2 days Patient Instructions/Handouts: Chest Pain (DC), How to Stop Smoking (DC), Cervical Radiculopathy (GEN) Activity/Diet/Wound Care/Special Instructions: Activity: As tolerated. Take breaks as needed. Diet: Heart healthy and carb consistent diet. Avoid salts, or foods with hidden salts such as canned or boxed foods and frozen dinners. Extra salt makes your heart work harder and traps the fluid in your body for longer. Special Instructions: Take all of your medications as directed and remember to keep all of your doctor's appointments and follow-up as needed. Per your request, you have been cleared by cardiology for outpatient follow-up in their office prior to the results of your echocardiogram, this was discussed with cardiology and you will need to follow up in the office with Dr. Hebert in 1 week to further discuss these results as they are not available at time of your discharge. Aortic root dilation, recommend outpatient follow-up with a vascular surgeon. Also recommend smoking cessation. In regards to your left arm pain/tingling and intermittent numbness your CAT scan on your thoracic spine did show some mild bony neural foraminal encroachment at the C5 through C6 level, a consult was placed to orthospine surgery for evaluation. You have declined being evaluated by orthospine surgeon and stated that you will follow up outpatient. Thank you for allowing us to participate in your care, it was truly a pleasure having you for our patient!!! Discharge Disposition: HOME SELF-CARE
[2023-07-04 15:23] VITALS: BP 127/85; PULSE 55; RESP 13; TEMP 97.7
--- NOTE | 2023-07-04 15:42 | CA ---
Transthoracic Echo Report Name: Rodger Welch Age: 52 Gender: M : 1970 Exam Date: 07/04/2023 14:35 Exam Location: [facility] Ht (in): 70 Wt (lb): 230 Ordering Physician: Kenzie Lu MD Attending/Referring Phys: Community Support Associate Denise Zavaleta RDCS Procedure CPT: Indications: Chest Pain Cardiac Hx: Technical Quality: Good Contrast 1: Total Dose (mL): Contrast 2: Total Dose (mL): MEASUREMENTS (Male / Female) Normal Values 2D ECHO LV Diastolic Diameter PLAX 5.6 cm 4.2 - 5.9 / 3.9 - 5.3 cm LV Systolic Diameter PLAX 3.8 cm IVS Diastolic Thickness 1.2 cm 0.6 - 1.0 / 0.6 - 0.9 cm LVPW Diastolic Thickness 1.0 cm 0.6 - 1.0 / 0.6 - 0.9 cm LV Relative Wall Thickness 0.4 RV Internal Dim ED PLAX 3.2 cm LA Systolic Diameter LX 3.5 cm 3.0 - 4.0 / 2.7 - 3.8 cm LV Diastolic Volume MOD 4C 104.4 cm??? LV Systolic Volume MOD 4C 43.0 cm??? LV Ejection Fraction MOD 4C 58.9 % LV Cardiac Index MOD 4C 1574.0 cm???/min???m??? LV Diastolic Length 4C 10.1 cm LV Systolic Length 4C 8.6 cm LV Diastolic Volume MOD 2C 84.4 cm??? LV Systolic Volume MOD 2C 41.1 cm??? LV Ejection Fraction MOD 2C 51.3 % LV Cardiac Index MOD 2C 1109.5 cm???/min???m??? LV Diastolic Length 2C 9.5 cm LV Systolic Length 2C 7.7 cm LA Volume 44.1 cm??? 18 - 58 / 22 - 52 cm??? M-MODE Aortic Root Diameter MM 4.6 cm AV Cusp Separation MM 2.8 cm DOPPLER AV Peak Velocity 102.5 cm/s AV Peak Gradient 4.2 mmHg MV Area PHT 3.2 cm??? Mitral E Point Velocity 98.0 cm/s Mitral A Point Velocity 66.3 cm/s Mitral E to A Ratio 1.5 MV Deceleration Time 239.0 ms MV E' Velocity 9.5 cm/s Mitral E to MV E' Ratio 10.3 FINDINGS Left Ventricle Left ventricular ejection fraction is estimated at 55-60 %. Left ventricular cavity size normal. Mildly increased septal wall thickness. Right Ventricle Normal right ventricular size and function. Unable to estimate the right ventricular systolic pressure. Right Atrium Normal right atrial size. Left Atrium Normal left atrial size. Mitral Valve Structurally normal mitral valve. No mitral stenosis, regurgitation or prolapse. Aortic Valve Trileaflet aortic valve. No aortic valve stenosis or regurgitation. Tricuspid Valve Structurally normal tricuspid valve. No tricuspid regurgitation. Pulmonic Valve Pulmonic valve not well visualized. Pericardium No pericardial effusion. Aorta Moderate aortic dilatation at the level of the sinotubular junction 46 mm CONCLUSIONS Left ventricular ejection fraction 55-60% Mildly increased left ventricular wall thickness No mitral regurgitation No pericardial effusion Previewed by: Dr. Ihsan Hebert DO (Electronically Signed) Final Date: 04 July 2023 15:42
[2023-07-04] MEDS ORDERED: FAMOTIDINE 20 MG TAB PO SCH (21:00)
== END 2023-07-04 15:34 | disposition home or self-care (01) ==
LOC: EC 15:49 → 6NMEDSUR 19:16
PROVIDERS: ADMIT Family Medicine; ATTEND Family Medicine
DX: R07.89 Other chest pain (principal); M79.602 Pain in left arm; R20.2 Paresthesia of skin; R20.0 Anesthesia of skin; I10 Essential (primary) hypertension; I08.3 Combined rheumatic disorders of mitral, aortic and tricuspid valves; E78.5 Hyperlipidemia, unspecified; J44.9 Chronic obstructive pulmonary disease, unspecified; F17.200 Nicotine dependence, unspecified, uncomplicated; F41.9 Anxiety disorder, unspecified; F32.A Depression, unspecified; Q25.43 Congenital aneurysm of aorta; K21.9 Gastro-esophageal reflux disease without esophagitis; G47.33 Obstructive sleep apnea (adult) (pediatric); E87.8 Other disorders of electrolyte and fluid balance, not elsewhere classified; R73.9 Hyperglycemia, unspecified; Z79.899 Other long term (current) drug therapy; Z98.890 Other specified postprocedural states; Z82.49 Family history of ischemic heart disease and other diseases of the circulatory system; Z87.01 Personal history of pneumonia (recurrent); Z86.718 Personal history of other venous thrombosis and embolism; Z90.49 Acquired absence of other specified parts of digestive tract
CPT/HCPCS: 96372; 99285; 36415; 93005; 93306; 93351; 85379; 80061; 80053; 83735; 84484; 85025; 85610; 85730; 71046; 72128; 72125; 71275; G0378 ×2; J1650; Q9967

== ENCOUNTER 2024-10-10 16:31 | Emergency (ER) | payer OTHER ==
[2024-10-10 17:07] VITALS: RESP 18
--- NOTE | 2024-10-10 17:23 | XR ---
EXAMINATION TYPE: XR chest 2V DATE OF EXAM: 10/10/2024 5:11 PM COMPARISON: Chest radiographs from 06/02/2023 CLINICAL INDICATION: Male, 53 years old with history of cough; TECHNIQUE: XR chest 2V Frontal and lateral views of the chest. FINDINGS: Lungs/Pleura: There is flattening of the diaphragm with increased lucency of the lungs. No evidence o f pneumothorax, pleural effusion or focal consolidation. Pulmonary vascularity: Unremarkable. Heart/mediastinum: Cardiomediastinal silhouette is unremarkable. Musculoskeletal: No acute osseous pathology. IMPRESSION: 1. No acute cardiopulmonary disease process. 2. COPD changes. [facility], , 10/10/2024 5:21 PM
--- NOTE | 2024-10-10 18:19 | ED ---
URI HPI - General Chief Complaint: Upper Respiratory Infection Stated Complaint: cough Time Seen by Provider: 10/10/24 17:00 Source: patient, RN notes reviewed Mode of arrival: ambulatory Limitations: no limitations - History of Present Illness Initial Comments: 53-year-old male presenting for cough x 3 days with nasal congestion. States cough is dry. Reports multiple sick contacts at work with similar symptoms. Denies fever, sore throat, shortness of breath, chest pain. Patient is a current smoker. Denies history of cardiac or pulmonary medical conditions. - Related Data Home Medications Medication Instructions Recorded Confirmed Metoprolol Succinate (ER) [Toprol 50 mg PO DAILY@1200 09/30/19 07/03/23 XL] Famotidine [Pepcid] 20 mg PO HS 01/04/20 07/03/23 amLODIPine [Norvasc] 10 mg PO DAILY@1200 01/04/20 07/03/23 Atorvastatin [Lipitor] 20 mg PO DAILY@1200 07/03/23 07/03/23 Previous Rx's Medication Instructions Recorded Benzonatate [Tessalon Perles] 100 mg PO TID PRN #15 capsule 10/10/24 Allergies Allergy/AdvReac Type Severity Reaction Status Date / Time No Known Allergies Allergy Verified 10/10/24 16:41 Review of Systems ROS Statement: Those systems with pertinent positive or pertinent negative responses have been documented in the HPI. ROS Other: All systems not noted in ROS Statement are negative. Past Medical History Past Medical History: Deep Vein Thrombosis (DVT), Hypertension, Pneumonia, Renal Disease Additional Past Medical History / Comment(s): DVT R leg, congenital kidney defect with surgeries History of Any Multi-Drug Resistant Organisms: None Reported Past Surgical History: Cholecystectomy, Hernia Repair Additional Past Surgical History / Comment(s): KIDNEY SURGERY twice for congenital defect, 3 fatty tumors removed from trunk, bilateral inguinal hernia repairs Past Anesthesia/Blood Transfusion Reactions: Motion Sickness Past Psychological History: Anxiety, Depression Smoking Status: Current every day smoker Past Alcohol Use History: None Reported Past Drug Use History: None Reported - Past Family History Father Family Medical History: Congestive Heart Failure (CHF) Additional Family Medical History / Comment(s): Father of CHF at the age of 77yrs. Mother Family Medical History: Coronary Artery Disease (CAD) Additional Family Medical History / Comment(s): Pt states mother is healthy. General Exam Limitations: no limitations General appearance: alert, in no apparent distress Head exam: Present: atraumatic, normocephalic, normal inspection Eye exam: Present: normal appearance, PERRL, EOMI. Absent: scleral icterus, conjunctival injection, periorbital swelling ENT exam: Present: normal exam, normal oropharynx, mucous membranes moist Neck exam: Present: normal inspection. Absent: tenderness, meningismus, lymphadenopathy Respiratory exam: Present: normal lung sounds bilaterally. Absent: respiratory distress, wheezes, rales, rhonchi, stridor, accessory muscle use Cardiovascular Exam: Present: regular rate, normal rhythm, normal heart sounds. Absent: systolic murmur, diastolic murmur, rubs, gallop, clicks Neurological exam: Present: alert, oriented X3 Psychiatric exam: Present: normal affect, normal mood Skin exam: Present: warm, dry, intact, normal color. Absent: rash Course Vital Signs 10/10/24 10/10/24 16:41 17:05 Temperature 98.6 F Pulse Rate 84 Respiratory 22 18 Rate Blood Pressure 140/81 O2 Sat by Pulse 94 L Oximetry Medical Decision Making - Medical Decision Making Was pt. sent in by a medical professional or institution (, PA, [employer] FINISHER SEAMSTRESS, urgent c are, hospital, or halfway...) When possible be specific @ -No Did you speak to anyone other than the patient for history (EMS, parent, family, police, friend...)? What history was obtained from this source @ -No Did you review nursing and triage notes (agree or disagree)? Why? @ -I reviewed and agree with nursing and triage notes Were old charts reviewed (outside hosp., previous admission, EMS record, old EKG, old radiological studies, urgent care reports/EKG's, halfway records)? Report findings @ -No old charts were reviewed Differential Diagnosis (chest pain, altered mental status, abdominal pain women, abdominal pain men, vaginal bleeding, weakness, fever, dyspnea, syncope, headache, dizziness, GI bleed, back pain, seizure, CVA, palpatations, mental health, musculoskeletal)? @ -Pneumonia, bronchitis, viral URI, COVID, influenza EKG interpreted by me (3pts min.). @ -None X-rays interpreted by me (1pt min.). @ -Chest x-ray reveals no acute process CT interpreted by me (1pt min.). @ -None done U/S interpreted by me (1pt. min.). @ -None done What testing was considered but not performed or refused? (CT, X-rays, U/S, labs)? Why? @ -None What meds were considered but not given or refused? Why? @ -None Did you discuss the management of the patient with other professionals (professionals i.e. Dr., PA, [employer]ER [employer], lab, RT, psych nurse, social service assistant, car inspection and repair manager, teacher, resident medical officer, rn case manager hospice)? Give summary @ -No Was smoking cessation discussed for >3mins.? @ -No Was critical care preformed (if so, how long)? @ -No Were there social determinants of health that impacted care today? How? (Homelessness, low income, unemployed, alcoholism, drug addiction, transportation, low edu. Level, literacy, decrease access to med. care, shelter, rehab)? @ -No Was there de-escalation of care discussed even if they declined (Discuss DNR or withdrawal of care, Hospice)? DNR status @ -No What co-morbidities impacted this encounter? (DM, HTN, Smoking, COPD, CAD, Cancer, CVA, ARF, Chemo, Hep., AIDS, mental health diagnosis, sleep apnea, morbid obesity)? @ -None Was patient admitted / discharged? Hospital course, mention meds given and route, prescriptions, significant lab abnormalities, going to OR and other pertinent info. @ -Discharge. No sign of respiratory distress. Chest x-ray reveals no acute process. Patient is negative for COVID, influenza, and RSV. Discussed negative results with patient. Discussed diagnosis of viral upper respiratory infection. Prescribed Tessalon Perles for supportive care. Appropriate return precautions and follow-up care discussed. Case was discussed with my ED attending Dr. Handley Undiagnosed new problem with uncertain prognosis? @ -No Drug Therapy requiring intensive monitoring for toxicity (Heparin, Nitro, Insulin, Cardizem)? @ -No Were any procedures done? @ -No Diagnosis/symptom? @ -Viral upper respiratory infection Acute, or Chronic, or Acute on Chronic? @ -Acute Uncomplicated (without systemic symptoms) or Complicated (systemic symptoms)? @ -Uncomplicated Side effects of treatment? @ -No Exacerbation, Progression, or Severe Exacerbation? @ -No Poses a threat to life or bodily function? How? (Chest pain, USA, CT, pneumonia, PE, COPD, DKA, ARF, appy, cholecystitis, CVA, Diverticulitis, Homicidal, Suicidal, threat to staff... and all critical care pts) @ -No - Lab Data Lab Results 10/10/24 Range/Units 17:03 Influenza Type A (PCR) Not Detected (Not Detectd) Influenza Type B (PCR) Not Detected (Not Detectd) RSV (PCR) Not Detected (Not Detectd) SARS-CoV-2 (PCR) Not Detected (Not Detectd) Disposition Clinical Impression: Viral upper respiratory infection Disposition: HOME SELF-CARE Condition: Stable Instructions (If sedation given, give patient instructions): Upper Respiratory Infection (ED) Additional Instructions: Take Tessalon Perles as needed for cough. Please return to the Emergency Department if symptoms worsen or any other concerns. Prescriptions: Benzonatate [Tessalon Perles] 100 mg PO TID PRN #15 capsule PRN Reason: Cough Is patient prescribed a controlled substance at d/c from ED?: No Referrals: Ck Patel MD [Primary Care Provider] - 1-2 days Time of Disposition: 18:19
[2024-10-10 18:43] VITALS: BP 141/89; PULSE 74; TEMP 98.4
== END 2024-10-10 18:42 | disposition home or self-care (01) ==
LOC: EC 16:31
DX: J06.9 Acute upper respiratory infection, unspecified (principal); F17.200 Nicotine dependence, unspecified, uncomplicated
CPT/HCPCS: 71046; 87636; 99283